=== PATIENT | male | born 1955 | race Caucasian/White ===

== ENCOUNTER → 2018-10-03 09:13 | Outpatient (CLI) | payer OTHER, SELFPAY ==
[2018-10-03 10:14] LABS: Absolute Lymphocyte Count 0.47 X10^3/ul (0.83-4.51); Absolute Neutrophil Count 9.3 X10^3/uL (2.0-7.7); Basophil# 0.06 X10^3/uL; Basophil% 0.6 % (0-1); Eosinophil# 0.26 X10^3/uL; Eosinophils% 2.4 % (0-5); Hemoglobin 11.7 g/dl (13.0-16.5); Lymphocyte # 0.47 X10^3/ul (4.0); Lymphocyte % 4.3 % (19-41); Mean Corp Hgb Conc 33.4 g/gl (32-36); Mean Corpuscular Hgb 30.2 pg (27.0-32.0); Mean Corpuscular Volume 90.4 fL (80-94); Mean Platelet Vol. 8.8 fl (6.2-12.0); Monocyte# 0.73 X10^3/uL; Monocyte% 6.7 % (0-10); Neutrophil # 9.31 X10^3/uL (2.7-7.7); Neutrophil % 85.9 % (47-70); Platelet Count 272 K/mm3 (150-450); RBC Distribution Width CV 12.9 % (11.6-14.6); RBC Distribution Width SD 42.3 fl (35.1-43.9); Red Blood Count 3.87 M/mm3 (4.6-6.2); White Blood Count 10.8 K/mm3 (4.4-11.0)
[2018-10-03 10:23] LABS: Differential Indicated SCAN CRITERIA MET; POSITIVE COUNT NO; POSITIVE DIFFERENTIAL YES; POSITIVE MORPHOLOGY NO
[2018-10-03 10:48] LABS: Anion Gap 3 (5-15); BUN 8 mg/dL (7-18); BUN/Creat Ratio 9.5 RATIO (10-20); Calcium,Total 8.8 mg/dL (8.5-10.1); Chloride 105 mmol/L (98-107); Creatinine, Serum 0.85 mg/dL (0.70-1.30); EST Glomerular Filtration Rate 97 mL/min (>60); Est Glom Filt Rate - Afr Amer 118 mL/min (>60); Glucose 91 mg/dL (74-106); Potassium 4.3 mmol/L (3.5-5.1); Sodium Level 137 mmol/L (136-145)
== END ==
PROVIDERS: Family Provider Family Medicine; PCP Family Medicine
DX: N41.0 Acute prostatitis (principal)
CPT/HCPCS: 36415; 80048; 85025

== ENCOUNTER → 2018-12-24 12:11 | Outpatient (CLI) | payer OTHER, SELFPAY ==
[2018-12-24 14:37] LABS: PSA,Total- Diagnostic 9.79 ng/mL (0.0-4.0)
== END ==
PROVIDERS: Family Provider Family Medicine; PCP Family Medicine; Referring Provider Family Medicine; Visit Provider Family Medicine
DX: R97.20 Elevated prostate specific antigen [PSA] (principal)
CPT/HCPCS: 36415; 84153

== ENCOUNTER → 2019-02-26 15:42 | Outpatient (CLI) | payer OTHER, SELFPAY ==
[2019-02-26 18:06] LABS: Creatinine, Serum 0.89 mg/dL (0.70-1.30); EST Glomerular Filtration Rate 92 mL/min (>60); Est Glom Filt Rate - Afr Amer 111 mL/min (>60); PSA,Total - Annual Screen 7.29 ng/mL (0.00-4.00)
== END ==
PROVIDERS: Family Provider Family Medicine; PCP Family Medicine
DX: N40.1 Benign prostatic hyperplasia with lower urinary tract symptoms (principal); R97.20 Elevated prostate specific antigen [PSA]
CPT/HCPCS: 36415; 82565; 84153; G0103

== ENCOUNTER → 2019-03-30 11:59 | Outpatient (CLI) | payer OTHER, SELFPAY ==
[2019-03-30 14:21] LABS: ALB/GLOB Ratio 1.1 RATIO (0.9-2.4); AST(SGOT) 27 U/L (15-37); Alanine Aminotransfer ALT/SGPT 51 U/L (16-61); Albumin, Serum 3.7 g/dL (3.2-5.0); Alkaline Phosphatase 67 U/L (45-117); Anion Gap 5 (5-15); BUN 29 mg/dL (7-18); BUN/Creat Ratio 27.9 RATIO (10-20); Calcium,Total 8.7 mg/dL (8.5-10.1); Chloride 109 mmol/L (98-107); Cholesterol 162 mg/dL (200); Creatinine, Serum 1.04 mg/dL (0.70-1.30); EST Glomerular Filtration Rate 76 mL/min (>60); Est Glom Filt Rate - Afr Amer 93 mL/min (>60); Globulin 3.3 g/dL (2.2-4.2); Glucose 75 mg/dL (74-106); High Density Lipoprotein 52 mg/dL; Potassium 3.7 mmol/L (3.5-5.1); Sodium Level 142 mmol/L (136-145); Triglycerides 66 mg/dL; Very Low Density Lipoprotein 13 mg/dL (5-40)
== END ==
PROVIDERS: Family Provider Family Medicine; PCP Family Medicine; Referring Provider Family Medicine; Visit Provider Family Medicine
DX: E78.5 Hyperlipidemia, unspecified (principal)
CPT/HCPCS: 36415; 80053; 80061

== ENCOUNTER → 2021-08-03 12:52 | Outpatient (CLI) | payer MEDICARE, OTHER, SELFPAY ==
[2021-08-03 15:31] LABS: PSA,Total- Diagnostic 4.73 ng/mL (0.0-4.0)
== END ==
PROVIDERS: PCP Family Medicine
DX: N40.1 Benign prostatic hyperplasia with lower urinary tract symptoms (principal); R97.20 Elevated prostate specific antigen [PSA]
CPT/HCPCS: 36415; 84153

== ENCOUNTER → 2022-08-07 | Outpatient (CLI) | payer MEDICARE, OTHER, SELFPAY ==
[2022-08-07 15:50] LABS: PSA,Total - Annual Screen 5.48 ng/mL (0.00-4.00)
== END | disposition home or self-care (01) ==
LOC: MTLAB 12:41
PROVIDERS: PCP Family Medicine
DX: R97.20 Elevated prostate specific antigen [PSA] (principal)
CPT/HCPCS: 36415; 84153; G0103

== ENCOUNTER → 2023-08-12 | Outpatient (CLI) | payer MEDICARE, OTHER, SELFPAY ==
[2023-08-12 16:12] LABS: PSA,Total- Diagnostic 3.11 ng/mL (0.0-4.0)
== END | disposition home or self-care (01) ==
LOC: MTLAB 12:36
PROVIDERS: PCP Family Medicine
DX: R97.20 Elevated prostate specific antigen [PSA] (principal)
CPT/HCPCS: 36415; 84153

== ENCOUNTER → 2023-09-10 | Outpatient (CLI) | payer MEDICARE, OTHER, SELFPAY ==
[2023-09-10 10:33] LABS: Absolute Lymphocyte Count 0.62 X10^3/uL (0.83-4.51); Absolute Neutrophil Count 2.9 X10^3/uL (2.0-7.7); Basophil# 0.05 X10^3/uL; Basophil% 1.2 % (0-1); Eosinophil# 0.19 X10^3/uL; Eosinophils% 4.6 % (0-5); Hematocrit 39.8 % (40-54); Hemoglobin 13.5 g/dL (13.0-16.5); Lymphocyte # 0.62 X10^3/ul (0.83-4.51); Mean Corp Hgb Conc 33.9 g/dL (32-36); Mean Corpuscular Hgb 30.8 pg (27.0-32.0); Mean Corpuscular Volume 90.7 fL (80-94); Mean Platelet Vol. 10.3 fl (6.2-12.0); Monocyte% 9.7 % (0-10); NRBC Flagged by Analyzer 0 % (0-5); Neutrophil # 2.86 X10^3/uL (2.7-7.7); Neutrophil % 69.3 % (47-70); Platelet Count 220 K/mm3 (150-450); RBC Distribution Width CV 12.7 % (11.6-14.6); RBC Distribution Width SD 41.7 fl (35.1-43.9); Red Blood Count 4.39 M/mm3 (4.6-6.2); White Blood Count 4.1 K/mm3 (4.4-11.0)
[2023-09-10 10:56] LABS: ALB/GLOB Ratio 1.1 RATIO (0.9-2.4); AST(SGOT) 21 U/L (15-37); Alanine Aminotransfer ALT/SGPT 30 U/L (16-61); Albumin, Serum 3.7 g/dL (3.2-5.0); Alkaline Phosphatase 70 U/L (45-117); Anion Gap 4 (5-15); BUN 21 mg/dL (7-18); BUN/Creat Ratio 27.7 RATIO (10-20); Chloride 107 mmol/L (98-107); Cholesterol 169 mg/dL (200); Creatinine, Serum 0.76 mg/dL (0.70-1.30); EST Glomerular Filtration Rate 109 mL/min (>60); Est Glom Filt Rate - Afr Amer 132 mL/min (>60); Globulin 3.5 g/dL (2.2-4.2); Glucose 106 mg/dL (74-106); High Density Lipoprotein 63 mg/dL; Potassium 3.6 mmol/L (3.5-5.1); Protein, Total 7.2 g/dL (6.4-8.2); Sodium Level 140 mmol/L (136-145); Triglycerides 65 mg/dL; Very Low Density Lipoprotein 13 mg/dL (5-40)
== END | disposition home or self-care (01) ==
LOC: MTLAB 08:46
PROVIDERS: PCP Family Medicine
DX: I10 Essential (primary) hypertension (principal); E78.5 Hyperlipidemia, unspecified
CPT/HCPCS: 36415; 80053; 80061; 85025

== ENCOUNTER 2023-11-03 08:00 | Emergency (ER) | payer MEDICARE, OTHER, SELFPAY ==
[2023-11-03 08:01] VITALS: BP 153/88; PULSE 62; RESP 16; TEMP 36.6; O2SAT 93; BMI 26.4
[2023-11-03 08:30] VITALS: TEMP 37.6
--- NOTE | 2023-11-03 08:30 | RAD_ITS ---
EXAM: XR CHEST, 2 VIEWS CLINICAL INDICATION: cough, fever, rales LLL with egophony TECHNIQUE: Frontal and lateral views of the chest. COMPARISON: No relevant prior studies available. FINDINGS: LUNGS AND PLEURAL SPACES: Normal. No consolidation or edema. No pneumothorax. No effusion. HEART: Normal heart size. MEDIASTINUM: No mediastinal or hilar mass. BONES/JOINTS: No acute abnormality. RAD/Chest PA and Lateral IMPRESSION: No acute cardiopulmonary disease. Electronically Signed: Humberto Bowers MD at 9:12 EDT ,
--- NOTE | 2023-11-03 08:31 | EDS_ITS ---
HPI History of Present Illness Chief Complaint: Fever Detail of Chief Complaint: Temperature 101.5 with mild congestion, raspy voice and nonproductive cough Informant: patient and spouse/S.O. Onset/Context/Timing Onset: Yesterday (Evening) Context: Sudden Onset Timing: Intermittent Quality: Yesterday nasal congestion, dyspnea, during the day. Cough last evening, f Location: Respiratory Current Severity: Mild Maximum Severity: Moderate Worsened by: Dyspnea with activity Relieved by: Nothing Associated Symptoms Associated Symptoms: Per HPI narrative Narrative Narrative: Patient is a 68-year-old male with history of hypertension. He had mild congestion yesterday. He also had shortness of breath while showing their horses. He reported fatigue. Last evening he had cough which was nonproductive. This morning at approximately 0730 took his temperature and was 101.4. He has had some chills. He does complain of headache. He does have hi story of migraines. He denies photophobia. He denies auditory or ear symptoms. He does endorse slight congestion. Denies sore throat. Does endorse change in voice from normal. He also reports intermittent transient chest pain described as dull that lasts 1 minute in duration. There is no associated symptoms nor is or any radiation. There is no exacerbating, precipitating or alleviating fac tors with regards to the chest discomfort. He denies history of VTE and has no risk factors for VTE. He denies leg pain, swelling discoloration. He does complain of myalgias and arthralgias. Upon clarification he complains of hand pain due to significant osteoarthritis. Prior similar symptoms: No Recent Illness/Hospitalization: No PFSH PFS Medical History (Updated 11/03/23 @ 09:[address] Kevin Marquez MD) Osteoarthritis Hypertension Home Medications ?Medication ?Instructions ?Recorded ?Last Taken ?Type levofloxacin 500 mg tablet 500 mg PO DAILY #6 tabs 11/03/23 Unknown Rx Allergy/AdvReac Type Severity Reaction Status Date / Time Penicillins (PCN) Allergy Intermediate NEEDS Verified 11/03/23 08:05 FOLLOW-UP diclofenac AdvReac Intermediate Nausea Verified 11/03/23 08:05 sertraline AdvReac Intermediate Nausea Verified 11/03/23 08:05 Social History (Updated 11/03/23 @ 08:[address] Kevin Marquez MD) household members: spouse Smoking Status: Never smoker substance use type: does not use ROS ROS ED Constitutional Constitutional ED: Reports chills, fever(s) and sweats; Denies subjective or weight loss Eyes Eyes: Denies blurry vision or change in vision ENT ENT ED: Denies ear pain, rhinorrhea or sore throat Cardiovascular Cardiovascular: Reports chest pain and other Details: Further detailed HPI narrative ; Denies orthopnea, palpitations, paroxysmal nocturnal dyspnea or racing heartbeat Respiratory/Chest Respiratory/Chest: Reports cough, dyspnea and dyspnea on exertion; Denies orthopnea, paroxysmal nocturnal dyspnea or sputum Gastrointestinal Gastrointestinal: Reports nausea and other Details: Patient had dry heaves x 2 this morning. ; Denies abdominal pain, constipation, diarrhea, melena or vomiting Genitourinary Genitourinary ED: Reports other Details: History of benign prostatic hypertrophy. ; Denies dysuria, hematuria or urinary frequency Musculoskeletal Musculoskeletal: Reports arthralgias and myalgias; Denies back pain Integumentary Denies rash Neurologic Neurologic: Reports headache(s) and weakness; Denies paresthesias Endocrine Endocrinology: Denies cold intolerance or heat intolerance Hematologic/Lymphatic Hematologic/Lymphatic: Reports systems reviewed and no addt'l complaints, except as documented EXAM Physical Exam Const Vital Signs: 11/03/23 08:01 11/03/23 08:30 Temperature 97.8 F Temperature Source Temporal Pulse Rate 62 Respiratory Rate 16 Respiratory Effort Normal Non-Labored Respiratory Pattern Normal Blood Pressure 153/88 H Blood Pressure Mean 109 Pulse Ox 93 Oxygen Delivery Method Room Air Positive well nourished and well developed General Appearance ED: well developed, NAD and pallor; Negative for cyanotic or diaphoretic HEENT Reports dry mucous membranes HEENT Narrative: Head is atraumatic normocephalic. Ears normal. Posterior pharynx is normal. Mouth ED: Yes dry mucous membranes Mouth: dry mucous membranes Eyes PERRL and EOMs intact bilaterally General Eye ED: Negative for pale conjunctiva or scleral icterus Neck no lymphadenopathy, supple and no JVD Chest Wall inspection of chest normal and palpation of chest normal Resp normal respiratory effort and No clear to auscultation bilaterally Auscultation: rales right base and left lower (There is egophony left lower lobe.); Negative for wheezes or diminished lung sounds Cardio regular rate, regular rhythm, S1 normal heart sound, S2 normal heart sound and no murmurs GI normal to inspection, nondistended, normoactive bowel sounds, non-tender, non- distended and no masses; Negative for hepatosplenomegaly Extremity normal to inspection Neuro oriented x3 Sensorium / Orientation: alert Psych mental status grossly normal Skin no rashes or lesions noted, no wounds and skin turgor normal General Skin Exam: elasticity normal and pallor; Negative for jaundice MDM MDM MDM Narrative Medical decision making narrative: Patient feels much warmer than documented temperature that was done by TA method. Will have nurse repeat. Clinically patient has a left lower lobe pneumonia. Will obtain appropriate blood work for risk stratification to determine if patient be treated as outpatient versus inpatient. Lab Data Attestation: I reviewed the patient's lab results. Lab results narrative: CBC reveals mild anemia. Patient does have history of anemia reviewing prior labs. There is no bandemia. Competence of metabolic panel reveals slight elevation of chloride. BUN/creatinine ratio is slight elevated 25-1. Estimated GFR is 98. Hepatic enzymes are normal. Lactate is normal. Labs: Laboratory Results - last 24 hr 11/03/23 08:35 WBC 5.4 RBC 3.87 L Hgb 11.9 L Hct 35.9 L MCV 92.8 MCH 30.7 MCHC 33.1 RDW Std Deviation 43.8 RDW Coeff of Bladimir 12.9 Plt Count 171 MPV 10.0 Immature Gran % (Auto) 0.400 Neut % (Auto) 81.2 H Lymph % (Auto) 4.7 L [place] % (Auto) 12.5 H Eos % (Auto) 0.6 Baso % (Auto) 0.6 Absolute Neuts (auto) 4.4 Absolute Lymphs (auto) 0.25 L Nucleated RBC % 0 Sodium 142 Potassium 3.5 Chloride 110 H Carbon Dioxide 28.0 Anion Gap 4 L BUN 21 H Creatinine 0.83 Estim Creat Clear Calc 90.72 Est GFR (MDRD) Af Amer 118 Est GFR (MDRD) Non-Af 98 BUN/Creatinine Ratio 25.3 H Glucose 118 H Lactic Acid 0.9 Calcium 8.9 Total Bilirubin 0.60 AST 34 ALT 32 Alkaline Phosphatase 61 Total Protein 6.9 Albumin 3.7 Globulin 3.2 Albumin/Globulin Ratio 1.2 Radiography Chest X-Ray - ED: 2 View and Read by ED Physician (Independent reviewed interpreted by me as negative for any acute pathology. In light of the fact the patient had fever, has egophony clinically has pneumonia. Infiltrate may not show up for 4 to 6 days.) Diagnostic Testing: Clinical Impression(s) from Imaging Studies Chest X-Ray 11/03/23 08:30 IMPRESSION: No acute cardiopulmonary disease. Electronically Signed: Humberto Bowers MD at 9:12 EDT , Treatment and Re-Evaluation :: Based on port score of 68 with a class II risk stratification and 0.6 to 0.9% mortality) irrigated candidate for outpatient therapy. Patient's curb 65 score is true because of age and BUN greater than 19. This is moderate risk with a 6.8% 30-day mortality rate. Will endocrine therapy or outpatient with close follow-up. My opinion patient is safe for outpatient therapy. Discharge Plan Triage Chief Complaint: Fever ED Provider: Kevin Marquez Dx/Rx/DC Orders Clinical Impression: Community acquired pneumonia, Osteoarthritis, Elevated blood pressure reading with diagnosis of hypertension, Fever Instructions: ED Pneumonia (Adult) Prescriptions: New levofloxacin 500 mg tablet 500 mg PO DAILY Qty: 6 0RF Primary Care Provider: Yossi Madrid Referrals: Yossi Madrid MD [Primary Care Provider] - 3-5 Days Print Language: Maori Disposition Disposition: Home, Self Care
[2023-11-03 08:48] LABS: Absolute Lymphocyte Count 0.25 X10^3/uL (0.83-4.51); Absolute Neutrophil Count 4.4 X10^3/uL (2.0-7.7); Basophil# 0.03 X10^3/uL; Basophil% 0.6 % (0-1); Eosinophil# 0.03 X10^3/uL; Eosinophils% 0.6 % (0-5); Hematocrit 35.9 % (40-54); Hemoglobin 11.9 g/dL (13.0-16.5); Lymphocyte # 0.25 X10^3/ul (0.83-4.51); Lymphocyte % 4.7 % (19-41); Mean Corp Hgb Conc 33.1 g/dL (32-36); Mean Corpuscular Hgb 30.7 pg (27.0-32.0); Mean Corpuscular Volume 92.8 fL (80-94); Monocyte# 0.67 X10^3/uL; Monocyte% 12.5 % (0-10); NRBC Flagged by Analyzer 0 % (0-5); Neutrophil # 4.35 X10^3/uL (2.7-7.7); Neutrophil % 81.2 % (47-70); POSITIVE DIFFERENTIAL YES; Platelet Count 171 K/mm3 (150-450); RBC Distribution Width CV 12.9 % (11.6-14.6); RBC Distribution Width SD 43.8 fl (35.1-43.9); Red Blood Count 3.87 M/mm3 (4.6-6.2); White Blood Count 5.4 K/mm3 (4.4-11.0)
[2023-11-03 09:05] LABS: ALB/GLOB Ratio 1.2 RATIO (0.9-2.4); AST(SGOT) 34 U/L (15-37); Alanine Aminotransfer ALT/SGPT 32 U/L (16-61); Albumin, Serum 3.7 g/dL (3.2-5.0); Alkaline Phosphatase 61 U/L (45-117); Anion Gap 4 (5-15); BUN 21 mg/dL (7-18); BUN/Creat Ratio 25.3 RATIO (10-20); Calcium,Total 8.9 mg/dL (8.5-10.1); Chloride 110 mmol/L (98-107); Creatinine, Serum 0.83 mg/dL (0.70-1.30); EST Glomerular Filtration Rate 98 mL/min (>60); Est Glom Filt Rate - Afr Amer 118 mL/min (>60); Estimated Creatinine Clearance 90.72 ml/min; Globulin 3.2 g/dL (2.2-4.2); Glucose 118 mg/dL (74-106); Potassium 3.5 mmol/L (3.5-5.1); Protein, Total 6.9 g/dL (6.4-8.2); Sodium Level 142 mmol/L (136-145)
[2023-11-03 09:11] LABS: Lactic Acid 0.9 mmol/L (0.4-1.9)
--- NOTE | 2023-11-03 09:43 | EDS_ITS ---
HPI History of Present Illness Chief Complaint: Fever [facility] Medical History (Updated 11/03/23 @ 09:[address] Kevin Marquez MD) Osteoarthritis Hypertension Home Medications ?Medication ?Instructions ?Recorded ?Last Taken ?Type levofloxacin 500 mg tablet 500 mg PO DAILY #6 tabs 11/03/23 Unknown Rx Allergy/AdvReac Type Severity Reaction Status Date / Time Penicillins (PCN) Allergy Intermediate NEEDS Verified 11/03/23 08:05 FOLLOW-UP diclofenac AdvReac Intermediate Nausea Verified 11/03/23 08:05 sertraline AdvReac Intermediate Nausea Verified 11/03/23 08:05 Social History (Updated 11/03/23 @ 08:[address] Kevin Marquez MD) household members: spouse Smoking Status: Never smoker substance use type: does not use EXAM Physical Exam Const Vital Signs: 11/03/23 08:01 11/03/23 08:30 11/03/23 08:30 Temperature 97.8 F 99.7 F H Temperature Source Temporal Oral Pulse Rate 62 Respiratory Rate 16 Respiratory Effort Normal Non-Labored Respiratory Pattern Normal Blood Pressure 153/88 H Blood Pressure Mean 109 Pulse Ox 93 Oxygen Delivery Method Room Air MDM MDM Lab Data Labs: Laboratory Results - last 24 hr 11/03/23 08:35 WBC 5.4 RBC 3.87 L Hgb 11.9 L Hct 35.9 L MCV 92.8 MCH 30.7 MCHC 33.1 RDW Std Deviation 43.8 RDW Coeff of Bladimir 12.9 Plt Count 171 MPV 10.0 Immature Gran % (Auto) 0.400 Neut % (Auto) 81.2 H Lymph % (Auto) 4.7 L [place] % (Auto) 12.5 H Eos % (Auto) 0.6 Baso % (Auto) 0.6 Absolute Neuts (auto) 4.4 Absolute Lymphs (auto) 0.25 L Nucleated RBC % 0 Sodium 142 Potassium 3.5 Chloride 110 H Carbon Dioxide 28.0 Anion Gap 4 L BUN 21 H Creatinine 0.83 Estim Creat Clear Calc 90.72 Est GFR (MDRD) Af Amer 118 Est GFR (MDRD) Non-Af 98 BUN/Creatinine Ratio 25.3 H Glucose 118 H Lactic Acid 0.9 Calcium 8.9 Total Bilirubin 0.60 AST 34 ALT 32 Alkaline Phosphatase 61 Total Protein 6.9 Albumin 3.7 Globulin 3.2 Albumin/Globulin Ratio 1.2 Radiography Diagnostic Testing: Clinical Impression(s) from Imaging Studies Chest X-Ray 11/03/23 08:30 IMPRESSION: No acute cardiopulmonary disease. Electronically Signed: Humberto Bowers MD at 9:12 EDT , Discharge Plan Triage Chief Complaint: Fever ED Provider: Kevin Marquez Dx/Rx/DC Orders Clinical Impression: Community acquired pneumonia, Osteoarthritis, Elevated blood pressure reading with diagnosis of hypertension, Fever Instructions: ED Pneumonia (Adult) Prescriptions: New levofloxacin 500 mg tablet 500 mg PO DAILY Qty: 6 0RF Primary Care Provider: Yossi Madrid Referrals: Yossi Madrid MD [Primary Care Provider] - 3-5 Days Print Language: Arabic Disposition Disposition: Home, Self Care
[2023-11-03] MEDS: levoFLOXacin 750 MG Tablet PO (09:47)
[2023-11-03 09:50] VITALS: BP 156/94; PULSE 72; RESP 18; TEMP 37.6; O2SAT 94
== END 2023-11-03 09:51 | disposition home or self-care (01) ==
PROVIDERS: Emergency Provider Emergency Medicine; PCP Family Medicine; Visit Provider Emergency Medicine
DX: J18.9 Pneumonia, unspecified organism (principal); I10 Essential (primary) hypertension; R11.2 Nausea with vomiting, unspecified; M79.10 Myalgia, unspecified site; M19.90 Unspecified osteoarthritis, unspecified site
CPT/HCPCS: 71046; 80053; 83605; 85025; 99284; A4216

== ENCOUNTER → 2024-03-23 | Outpatient (CLI) | payer MEDICARE, OTHER, SELFPAY | END | disposition home or self-care (01) | LOC: RAD 13:35 | PROVIDERS: PCP Family Medicine; Referring Provider Anesthesiology Pain Medicine; Visit Provider Anesthesiology Pain Medicine | DX: M96.1 Postlaminectomy syndrome, not elsewhere classified (principal) | CPT/HCPCS: 72100 ==

== ENCOUNTER → 2024-08-17 | Outpatient (CLI) | payer MEDICARE, OTHER, SELFPAY ==
[2024-08-17 19:45] LABS: PSA,Total - Annual Screen 4.38 ng/mL (0.02-4.00)
== END | disposition home or self-care (01) ==
LOC: MTLAB 13:56
PROVIDERS: PCP Family Medicine
DX: Z12.5 Encounter for screening for malignant neoplasm of prostate (principal); R97.20 Elevated prostate specific antigen [PSA]; Z98.890 Other specified postprocedural states
CPT/HCPCS: 36415; 84153; G0103

== ENCOUNTER → 2024-10-21 | Outpatient (CLI) | payer MEDICARE, OTHER, SELFPAY ==
--- OUTSIDE RECORDS SUMMARY | 2024-10-21 21:56 | XMS RPT_ITS | CCD ---
Author Organization [facility] CliniSypr Care Team Providers Care Coiler Operator Name Role Phone Essie Madrid Attending Unavailable Essie Madrid Referring Unavailable Essie Madrid Primary Care Unavailable Essie Madrid Primary Care Provider Essie Madrid MD Primary Care Provid er Essie Madrid MD Primary Care Provider [phone] Unavailable Primary Care Provider Unavailabl e Essie Madrid MD Primary Care Provider Essie Madrid MD Primary Care Provid er HUGO GABRIELLE Referring Unavailable VETOVITZ, GISELL Referring Unavailable FINESSIE GASPAR Primary Care Unavai labjennifer VETOVITZ, GISELL Referring Unavailable FINNERESSIE HOPKINS Primary Care Unavai lable VETOVITZ, GISELL Referring Unavailable FINNERESSIE HOPKINS Primary Care Unavai lable VETOVITZ, GISELL Referring Unavailable FINNERESSIE HOPKINS Primary Care Unavai lable PROVIDER, UNKNOWN Admitting Unavailable PROVIDER, UNKNOWN Attending Unavailable PROVIDER, UNKNOWN Referring Unavailable ESSIE MADRID Primary Care Unavai lable FINNERESSIE HOPKINS Primary Care Unavai JOHN Mcnamara Referring Unavailable REGOTTI, GABRIELLE Referring Unavailable REGOTTI, GABRIELLE Attending Unavailable ESSIE MADRID Primary Care UnavaJOHN Camacho Referring Unavailable VETOVITZ, GISELL Attending Unavailable ELVIS MONZON Attending Unavailable ESSIE MADRID Referring Unavarik labESSIE Uriostegui Referring UnavaELVIS Rodriguez Attending Unavailable ELVIS MONZON Attending Unavailable FINNERAN, ESSIE FERGUSON Referring Unavai lable FERNANDO, ELVIS Attending Unavailable FINNERAN, ESSIE FERGUSON Referring Unavai lable FINNERAN, ESSIE FERGUSON Referring Unavai lable FINNERAN, ESSIE MARTY Referring Unavai lable FERNANDO, ELVIS Attending Unavailable FINNERAN, ESSIE FERGUSON Referring Unavai lable FINNERAN, ESSIE MARTY Referring Unavai lable FERNANDO, ELVIS Attending Unavailable FERNANDO, ELVIS Attending Unavailable FINNERAN, ESSIE MARTY Referring Unavai lable FERNANDO, ELVIS Attending Unavailable FINNERAN, ESSIE FERGUSON Referring Unavai lable FERNANDO, ELVIS Attending Unavailable FINNERAN, ESSIE FERGUSON Referring Unavarik FRY, JOHN Attending Unavailable GABRIELLE BENTON Referring Unavailable ESSIE MADRID Primary Care Brenden FRY, JOHN Attending Unavailable CHRISTIANA, ESSIE FERGUSON Primary Care GISELL Escalante Attending Unavailable Essie Madrid MD Primary Care [facility] Unavailable Primary Care Provider Unavailabl e Essie Madrid Primary Care Unavailable Marquez, Kevin Attending Unavailable MARYELLEN VILLELA Referring Unavailable MARYELLEN VILLELA Attending Unavailable Essie Madrid Primary Care Unavailable Essie Madrid Primary Care Unavailable MARYELLEN VILLELA Attending Unavailable Essie Madrid Primary Care Unavailable Bacilio Ham Referring Unavailable Bacilio Ham Attending Unavailable ESSIE MADRID Primary Care Unavailable SHYANN GUPTA Attending Unavailable ANGIE YBARRA Referring Unavailable ANGIE YBARRA Attending Unavailable ESSIE MADRID Primary Care Unavailable Allergies Allergy Classification Reported Allergen(s) Allergy Type Date of Onset Reaction(s) Facility (16 sources) Penicillin G; Translations: [PENICILLIN G] Drug Allergy 1 Other (See Comments), Unknown [place], [place] (16 sources) Sertraline; Translations: [SERTRALINE] Drug Allergy 7 Other (See Comments), Unknown [place], [place] (8 sources) celecoxib; Translations: [CELECOXIB] Drug Allergy 4 GI Upset [facility] (11 sources) Diclofenac; Translations: [DICLOFENAC] Drug Allergy [address] [facility] (3 sources) celecoxib Drug Allergy 4 [facility] (1 source) Diclofenac Drug Allergy 4 [facility] (1 source) Penicillins Drug allergy (disorder) 4 [facility] (1 source) Sertraline Drug Allergy 4 [facility] Medications Current Medications Medication Drug Class(es) Dates Sig (Normalized) Sig (Original) acetaminophen 500 mg oral tablet (2 sources) acetaminophen (TYLENOL) 500 MG tablet 2 tab(s) 0 Active amLODIPine 5 mg oral tablet (13 sources) Dihydropyridine Calcium Channel Santa Start: 03-19-2022 take 1 tablet by mouth once daily amLODIPine (Norvasc) 5 MG tablet TAKE 1 TABLET BY MOUTH ONCE DAILY AT NIGHT FOR 30 DAYS 03/19/2022 Active Comment on above: Take 5 mg by mouth o nce daily. atenolol 25 mg oral tablet (15 sources) beta-Adrenergic Santa Start: 11-25-2017 atenolol (Tenormin) 25 MG tablet 08/09/2022 Active Comment on above: Take 25 mg by mouth once daily. cephalexin 250 mg oral capsule (1 source) Cephalosporin Antibacterial Start: 07-22-2023 End: 07-27-2023 take 1 capsule by mouth four times daily cephALEXin (KEFLEX) 250 mg capsule Indications: Postoperative stitch abscess Take 1 capsule by mouth four times daily for 5 days. 20 capsule 0 07/22/2023 07/27/2023 Active Comment on above: Take 1 capsule by [facility] daily for 5 days. citalopram 10 mg oral tablet (15 sources) Serotonin Reuptake Inhibitor Start: 11-25-2017 citalopram (CeleXA) 10 MG tablet 08/09/2022 Active Comment on above: Take 10 mg by mouth once daily. diclofenac sodium 0.01 mg/mg topical gel (13 sources) Nonsteroidal Anti-inflammatory Drug Start: 03-19-2022 Diclofenac Sodium (Voltaren) 1 % gel APPLY 2 GRAMS THREE TIMES DAILY DIRECTED 03/19/2022 Active Start: 03-19-2022 diclofenac (VO LTAREN) 1 % topical gel Apply 2 g to affected area as needed. 03/19/2022 Active Comment on above: Apply 2 g to affecte d area as needed. finasteride 5 mg oral tablet (13 sources) 5-alpha Reductase Inhibitor Start: 02-09-2021 finasteride (Proscar) 5 MG tablet 08/09/2022 Active hydroCHLOROthiazide 12.5 mg / valsartan 320 mg oral tablet (15 sources) Thiazide Diuretic, Angiotensin 2 Receptor Santa Start: 08-09-2022 valsartan-hydroCHLORO thiazide (Diovan-HCT) 320-12.5 MG tablet 08/09/2022 Active Start: 01-02-2007 take 1 tablet by seun th once daily Valsartan-hydroCHLOROthiazide 320-12.5 m g per tablet Take 1 tablet by mouth once daily. 01/02/2007 Active Start: 01-02-2007 valsartan-hydr ochlorothiazide (DIOVAN HCT) 320-12.5 MG per tablet 1 tab(s) 0 01/02/2007 Active Comment on above: Take 1 tablet by seun th once daily. meloxicam 15 mg oral tablet (13 sources) Nonsteroidal Anti-inflammatory Drug Start: 08-02-2021 meloxicam (Mobic) 15 MG tablet 08/02/2021 Active Comment on above: Take 15 mg by mouth as needed. mometasone furoate 0.001 mg/mg topical ointment (15 sources) Corticosteroid Start: 03-21-2022 mometasone (Elocon) 0.1 % ointment APPLY OINTMENT SPARINGLY TO RASH ONCE DAILY DIRECTED 03/21/2022 Active Start: 11-14-2010 mometasone (EL NICHOLE) 0.1 % cream Apply 1 g to affected area as needed. 11/14/2010 Active Start: 11-14-2010 mometasone (EL NICHOLE) 0.1 % cream 1 devyn 0 11/14/2010 Active Comment on above: Apply 1 g to affecte d area as needed. Multiple Vitamins-Minerals (MULTIVITAMIN ADULT PO) (2 sources) Multiple Vitamins-Minerals (MULTIVITAMIN ADULT PO) 1 tab(s) 0 Active omeprazole 20 mg delayed release oral capsule (13 sources) Proton Pump Inhibitor Start: 09-06-19 take 1 capsule by mouth once daily omeprazole (PriLOSEC) [address] capsule Take 20 mg by mouth daily. 08/05/2022 Active Comment on above: Take 20 mg by mouth once daily. pravastatin sodium 20 mg oral tablet (15 sources) HMG-CoA Reductase Inhibitor Start: 11-26-19 pravastatin (Pravachol) 20 MG tablet 08/09/2022 Active Comment on above: Take 20 mg by mouth once daily. rizatriptan 10 mg disintegrating oral tablet (15 sources) Serotonin-1b and Serotonin-1d Receptor Agonist Start: 03-19-20 rizatriptan UNDERGROUND MINING SECTION FOREMAN (Maxalt-UNDERGROUND MINING SECTION FOREMAN) 10 MG disintegrating tablet 03/19/2022 Active Start: 02-19-2011 rizatriptan (M AXALT) 10 mg tablet Take 10 mg by mouth as needed. 02/19/2011 Active Comment on above: Take 10 mg by mouth as needed. terazosin 10 mg oral capsule (15 sources) alpha-Adrenergic Santa Start: 10-02-2018 terazosin (Hytrin) 10 MG capsule 08/09/2022 Active Comment on above: Take 10 mg by mouth once daily. Completed/Discontinued Medications Medication Drug Class(es) Dates Sig (Normalized) Sig (Original) ascorbic acid 100 mg/ml oral solution (8 sources) Vitamin C End: 08-24-2024 Ascorbic Acid 500 MG/5ML liquid 1 tab(s) 08/24/2024 Discontinued (Therapy completed) gadobenate dimeglumine (MULTIHANCE) injection 16 mL (1 source) Start: 03-12-2019 End: 03-12-2019 gadobenate dimeglumine (MULTIHANCE) injection 16 mL Problems Active Problems Problem Classification Problem Date Documented Date Episodic/Chronic Anxiety disorders (7 sources) Mixed anxiety and depressive disorder; Translations: [Anxiety disorder, unspecified] Onset: 05-01-2023 05-01-2023 Chronic Complications of surgical procedures or medical care (1 source) Stitch abscess; Translations: [Infection following a procedure, superficial incisional surgical site, initial encounter] 07-22-2023 Episodic Disorders of lipid metabolism (7 sources) Mixed hyperlipidemia; Translations: [Mixed hyperlipidemia] Onset: 05-01-2023 05-01-2023 Chronic Esophageal disorders (7 sources) Gastroesophageal reflux disease; Translations: [Gastro-esophageal reflux disease without esophagitis] Onset: 05-01-2023 05-01-2023 Chronic Essential hypertension (8 sources) Benign essential hypertension; Translations: [Essential (primary) hypertension] Onset: 05-01-2023 05-01-2023 Chronic Headache; including migraine (7 sources) Migraine; Translations: [Migraine, unspecified, not intractable, without status migrainosus] Onset: 05-01-2023 05-01-2023 Chronic Hyperplasia of prostate (16 sources) Benign prostatic hypertrophy with outflow obstruction; Translations: [Benign prostatic hyperplasia with lower urinary tract symptoms] Onset: 02-09-2021 02-11-2022 Chronic Mood disorders (1 source) Mood disorders; Translations: [Anxiety and depression] Onset: 05-01-2023 Osteoarthritis (10 sources) Bilateral primary osteoarthritis of first carpometacarpal joints; Translations: [Arthropathy of joint of hand] Onset: 05-29-2018 02-28-2023 Chronic Other connective tissue disease (1 source) Pain in right finger(s); Translations: [Thumb pain, right] Onset: 05-15-2023 Episodic Other diseases of kidney and ureters (1 source) Other obstructive and reflux uropathy; Translations: [BPH with urinary obstruction] Onset: 05-01-2023 Episodic Other nervous system disorders (1 source) Skin sensation disturbance; Translations: [Unspecified disturbances of skin sensation] 02-28-2023 Episodic Other non-traumatic joint disorders (9 sources) Shoulder pain; Translations: [Pain in right shoulder] Onset: 09-28-2022 Episodic Other screening for suspected conditions (not mental disorders or infectious disease) (16 sources) Raised prostate specific antigen; Translations: [Elevated prostate specific antigen [PSA]] Onset: 02-05-2018 02-05-2018 Episodic Residual codes; unclassified (6 sources) Obstructive sleep apnea syndrome; Translations: [Obstructive sleep apnea (adult) (pediatric)] Onset: 05-01-2023 05-01-2023 Chronic Residual codes; unclassified (1 source) Obstructive sleep apnea (adult) (pediatric); Translations: [LOIDA (obstructive sleep apnea)] Onset: 05-01-2023 Chronic Residual codes; unclassified (2 sources) Pain; Translations: [Pain, unspecified] 02-15-2023 Episodic Residual codes; unclassified (1 source) History of prostate needle biopsy with negative result; Translations: [Other specified postprocedural states] 08-20-2023 Episodic Spondylosis; intervertebral disc disorders; other back problems (11 sources) Degeneration of cervical intervertebral disc; Translations: [Other cervical disc degeneration, unspecified cervical region] Onset: 05-01-2023 Chronic Unclassified (1 source) Occupational Therapy Onset: 06-18-2023 Past or Other Problems Problem Classification Problem Date Documented Da te Episodic/Chronic Deficiency and other anemia (2 sources) Anemia; Translations: [Anemia, unspecified] Onset: 11-08-2023 11-08-2023 Episodic Deficiency and other anemia (1 source) Anemia, unspecified; Translations: [Anemia, unspecified] Onset: 11-08-2023 Episodic Fever of unknown origin (1 source) Fever, unspecified; Translations: [Fever, unspecified] Onset: 11-06-2023 Episodic Genitourinary symptoms and ill-defined conditions (6 sources) Nocturia; Translations: [Nocturia] Onset: 08-10-2021 02-11-2022 Episodic Inflammatory conditions of male genital organs (8 sources) Acute prostatitis; Translations: [Acute prostatitis] Onset: 10-02-2018 10-02-2018 Episodic Other male genital disorders (7 sources) Disorder of prostate; Translations: [Disorder of prostate, unspecified] Onset: 04-08-2019 04-08-2019 Episodic Other nervous system disorders (1 source) Unspecified disturbances of skin sensation; Translations: [Disturbance of skin sensation] Onset: 03-08-2023 Episodic Other non-traumatic joint disorders (18 sources) Pain in right shoulder; Translations: [Pain in joint, shoulder region] Onset: 09-28-2022 Resolved: 05-01-2023 Episodic Residual codes; unclassified (1 source) Pain, unspecified; Translations: [Pain] Onset: 02-28-2023 Episodic Results Test Name Value Interpretation Reference Range Facility Office Visiton 08-24-2024 Follow-up visit [id number] Robin Delarosa 1955 M Date Provider Department Center 08/24/2024 [id number] URO None Family History Problem Relation Age of Onset Diabetes Brother Arthritis Father Heart failure Mother Heart disease Mother Family Status - Relation Status Age at Brother Alive Father Mother Level of Service:59439 LA OFFICE/OUTPATIENT ESTABLISHED LOW MDM 20 MIN Reason for Visit and Comments: 1 Year Follow-up [670] Normal [facility] Progress Noteon 08-24-2024 Progress Note PVR 0 Normal [facility] Progress Note Sonido EspositoAngie Shay nelson APRN [employer] 08/24/2024 Urology Office Visit [facility] [address], [address] [facility] [address] PATIENT NAME: Robin Delarosa DATE OF : 1955 REFERRING PROVIDER: No ref. provider found PCP: Essie Madrid MD TODAY'S DATE: 08/24/2024 Visit type: Established patient Az is a pleasant 69 y.o. unaccompanied male who presents today for the following: annual follow up for BPH and Elevated PSA Chief Complaint Patient presents with 1 Year Follow-up Assessment and Plan: Diagnosis Plan 1. Benign prostatic hyperplasia without lower urinary tract symptoms 2. Elevated PSA PSA, total and free PSA, total and free 3. Rising PSA level PSA, total and free PSA, total and free Problem List BPH Plan is to continue current treatment as symptoms are well controlled on finasteride, terazosin Dosage/schedule verified Patient is compliant and is tolerating without adverse effects. States his PCP refills his medications 08-24-24: PVR zero ml PSA Recheck PSA in 1 month If PSA >4 will order MRI, if <4 will recheck in 6 months. All patient questions answered. Patient voiced understanding. Patient agreed with treatment plan. Follow Up: Follow up in about 2 months (around 10/24/2024). Sonido Adams SRINIVASAN Gupta [facility] Urology HPI: Patient presents to the office regarding BPH and Elevated PSA. Records have been reviewed. 08/20/2023: Carrie: BPH - continue terazosin and finasteride. PVR 0mL. History of 2 negative prostate biopsies. Family history of prostate cancer. 04/13/2019: Marlen: Uronav biopsy. Benign. 86.2 mL prostate Problem List BPH Patient currently taking finasteride and terazosin. States he feels his symptoms are well controlled. PVR today is zero. Voids q 3 hrs. Nocturia x 1 Urgency: denies UUI: denies GILLES: denies Dysuria: denies Feeling of incomplete emptying: denies Hematuria: denies Stream is good Urinary hesitancy: denies Elevated PSA 08-19-24: PSA 8.76 (finasteride 4.38) Discussed with patient should recheck PSA in 1 month. If PSA >4 will order MRI, if <4 will recheck in 6 months. Discussed when taking finasteride the PSA will be lower than the true value PSA trend: (after corrections) 08-19-24: PSA 8.76 (finasteride 4.38) 08/12/2023: 6.22 (3.11) 08/07/2022: 10.96 (5.48) 11/17/2021: 9.46 Review of Systems: All pertinent positives and negatives per HPI as stated above. Review of Systems Constitutional: Negative for chills and fever. Genitourinary: Negative for difficulty urinating, flank pain, frequency, hematuria and urgency. Past Medical History: Diagnosis Date Arthritis Benign prostatic hyperplasia Elevated PSA Hyperlipemia Hypertension Urinary tract infection Past Surgical History: Procedure Laterality Date BACK SURGERY lumbar OTHER SURGICAL HISTORY thumb surgery (left) Allergies Allergen Reactions Celecoxib Other Reaction(s): GI Upset Diclofenac Other Reaction(s): GI Upset Penicillin G Other reaction(s): Other (See Comments) Other Reaction(s): Unknown Sertraline Other reaction(s): Other (See Comments) Other Reaction(s): Unknown Physical Exam: BP 139/79 Pulse 51 Ht 5' 11 (1.803 m) Wt 180 lb (81.6 kg) BMI 25.10 kg/m? Physical Exam Vitals reviewed. Constitutional: Appearance: Normal appearance. He is normal weight. Pulmonary: Effort: Pulmonary effort is normal. No respiratory distress. Neurological: Mental Status: He is alert and oriented to person, place, and time. Psychiatric: Mood and Affect: Mood normal. Behavior: Behavior normal. Thought Content: Thought content normal. Judgment: Judgment normal. Pertinent Labs: CBC: Lab Results Component Value Date WBC 3.9 11/08/2023 HGB 13.2 11/08/2023 HCT 37.4 (L) 11/08/2023 MCV 89.3 11/08/2023 PLT 231 11/08/2023 PSA: 08-19-24: PSA 8.76 (finasteride 4.38) 08/12/2023: 6.22 (3.11) 08/07/2022: 10.96 (5.48) 11/17/2021: 9.46 Imaging: None at this time Procedure: 08-24-24: PVR zero ml Please note that portions of this chart were dictated using Fleep electronic voice recognition software. It is possible that typos and/or omissions and/or substitutions of words and/or phrases may exist, which may alter the intended meaning of the dictating provider. Normal [facility] PSA,Total - Annual Screenon 08-17-2024 PSA,TOT SCREEN 4.38 ng/mL High 0.02-4.00 [facility] Comment on above: Result Comment: This test was performed using the Tatyana Info[employer]out tPSA method. Measured values of a patient??sample can vary depending on the testing procedure used. PSA values determined on patient samples by different testing procedures cannot be used interchangeably. If there is a change in PSA assays while monitoring therapy, sequential testing should be performed to confirm baseline values. Performed By: #### L [phone] #### [facility] [address] [place], [place], [id number] Lumbar Spine 2 or 3 Viewson 03-23-2024 Lumbar Spine 2 or 3 Views [facility] Imaging Services [address] [place], [place] [address] Lumbar Spine 2 or 3 Views MR#: [id number] Acct: [id number] Name: ROBIN DELAROSA Rep #: [id number] : 1955 M 68 From: Carlos García MD PCP: Dr. Essie Madrid MD Status: REG CLI Study: Lumbar Spine 2 or 3 Views Date of Exam: Exam# [id number] Ordering Dr: Bacilio Ham MD [id number] STUDY: X-RAY - LUMBAR SPINE REASON FOR EXAM: Male, 68 years old. POST LAMINECTOMY SYNDROME TECHNIQUE: 3 view(s) of the lumbar spine were obtained. COMPARISON: None FINDINGS: Normal lumbar lordosis. Moderate dextroscoliosis centered at L2. There is a normal alignment of the vertebrae. There is multilevel endplate spondylosis of the lumbar vertebrae. There is multi-level degenerative disc disease with multi-level disc space narrowing. There is multilevel facet hypertrophy. The soft tissue structures are unremarkable. RAD/Lumbar Spine 2 or 3 Views IMPRESSION: Moderate dextroscoliosis with degenerative disc disease. MRI may be useful. Electronically Signed: Carlos García MD at 8:32 EST , CC: Dr. Bacilio Ham MD; Dr. Essie Madrid MD Manager Multimedia: Signed Normal [facility] CBC W Auto Differential pane l (Bld)Ordered By: Juan Lawler on 11-08-2023 Basophils (Bld) [#/Vol] 0.0 10*3/uL 0.0 - 0.2 10*3/uL [facility] Basophils/100 WBC (Bld) 0.3 % 0.0 - 2.0 % [facility] Eosinophils (Bld) [#/Vol] 0.2 10*3/uL 0.0 - 0.5 10*3/uL [facility] Eosinophils/100 WBC (Bld) 4.9 % 0.0 - 6.0 % [facility] Erythrocyte distribution width (RBC) [Ratio] 12.3 % 11.5 - 15.0 % [facility] Hematocrit (Bld) [Volume fraction] 37.4 % Low 40.0 - 52.0 % [facility] Hemoglobin (Bld) [Mass/Vol] 13.2 g/dL 13.0 - 18.0 g/dL [facility] [employer] Immature granulocytes (Bld) [#/Vol] 0.0 10*3/uL NINF - 0.1 10*3/uL [facility] [employer] Immature granulocytes/100 WBC (Bld) 0.3 % 0.0 - 2.0 % [facility] Interpretation and review of laboratory results Abnormal [facility] Lymphocytes (Bld) [#/Vol] 0.6 10*3/uL Low 1.0 - 4.3 10*3/uL [facility] Lymphocytes/100 WBC (Bld) 15.1 % 15.0 - 45.0 % [facility] MCH (RBC) [Entitic mass] 31.5 pg 26.0 - 34.0 pg [facility] MCHC (RBC) [Mass/Vol] 35.3 % 30.5 - 36.0 % [facility] MCV (RBC) [Entitic vol] 89.3 fL 77.0 - 99.0 fL [facility] Monocytes (Bld) [#/Vol] 0.4 10*3/uL 0.0 - 0.9 10*3/uL [facility] Monocytes/100 WBC (Bld) 9.9 % 5.0 - 13.0 % [facility] Neutrophils (Bld) [#/Vol] 2.7 10*3/uL 1.8 - 7.5 10*3/uL [facility] Neutrophils/100 WBC (Bld) 69.5 % 38.0 - 82.0 % [facility] Nucleated RBC/100 WBC (Bld) [Ratio] 0.0 % [facility] Platelet mean volume (Bld) [Entitic vol] 10.0 fL 9.0 - 12.7 fL [facility] Comment on above: MPV is a calculated measurement using platelet volume ratio Platelets (Bld) [#/Vol] 231 10*3/uL 140 - 440 10*3/uL [facility] RBC (Bld) [#/Vol] 4.19 10*6/uL Low 4.40 - 5.9 0 10*6/uL [facility] WBC (Bld) [#/Vol] 3.9 10*3/uL 3.6 - 10.7 10*3/uL [facility] CBC WITH AUTO DIFFERENTIALon 11-08-2023 Basophils (Bld) [#/Vol] 0.0 10*3/uL Normal 0.0-0.2 [facility] Comment on above: Performed By: #### L [id number] #### Software Applications Engineer: KRISTY GERONIMO ([id number]) [facility] [facility]) [address] [place] [address] [place] Basophils/100 WBC (Bld) 0.3 % Normal 0.0-2.0 [facility] Comment on above: Performed By: #### L [id number] #### Software Applications Engineer: KRISTY GERONIMO ([id number]) [facility] ([employer]) [address] [place] [address] Eosinophils (Bld) [#/Vol] 0.2 10*3/uL Normal 0.0-0.5 [facility] Comment on above: Performed By: #### L [id number] #### Software Applications Engineer: KRISTY GERONIMO ([id number]) [facility] [employer] ([employer]) [address] [place] [address] [place] Eosinophils/100 WBC (Bld) 4.9 % Normal 0.0-6.0 [facility] Comment on above: Performed By: #### L [id number] #### Software Applications Engineer: KRISTY GERONIMO ([id number]) [employer] ([employer]) [address] [place] [address] Erythrocyte distribution width (RBC) [Ratio] 12.3 % Normal 11.5-15.0 [facility] Comment on above: Performed By: #### L [id number] #### Software Applications Engineer: KRISTY GERONIMO ([id number]) [employer] ([employer]) [address] [place] [address] Hematocrit (Bld) [Volume fraction] 37.4 % Low 40.0-52.0 [facility] Comment on above: Performed By: #### L [id number] #### Software Applications Engineer: KRISTY GERONIMO ([id number]) [facility] ([facility]) [address] [place] [address] Hemoglobin (Bld) [Mass/Vol] 13.2 g/dL Normal 13.0-18.0 [facility] Comment on above: Performed By: #### L [id number] #### Software Applications Engineer: KRISTY GERONIMO ([id number]) [facility] [employer] (SWRLAB) [address] [place] [address] IMMATURE GRANS % 0.3 % Normal 0.0-2.0 [facility] Comment on above: Performed By: #### L [id number] #### Software Applications Engineer: KRISTY GERONIMO ([id number]) [facility] [employer] (SWRL[employer]) [address] [place] [address] IMMATURE GRANS ABSOLUTE 0.0 10*3/uL Normal <0.1 [facility] Comment on above: Performed By: #### L [id number] #### Software Applications Engineer: KRISTY GERONIMO ([id number]) [facility] [employer] (SWRLAB) [address] [place] [address] Lymphocytes (Bld) [#/Vol] 0.6 10*3/uL Low 1.0-4.3 [facility] Comment on above: Performed By: #### L [id number] #### Software Applications Engineer: KRISTY GERONIMO ([id number]) [facility] [employer] (SWRLAB) [address] [place] [address] Lymphocytes/100 WBC (Bld) 15.1 % Normal 15.0-45.0 [facility] Comment on above: Performed By: #### L [id number] #### Software Applications Engineer: KRISTY GERONIMO ([id number]) [facility] [employer] (SWRLAB) [address] [place] [address] MCH (RBC) [Entitic mass] 31.5 pg Normal 26.0-34.0 [facility] Comment on above: Performed By: #### L [id number] #### Software Applications Engineer: KRISTY GERONIMO ([id number]) [facility]ENTERAs[facility] [employer] (SWRL[employer]) [address] [place] [address] [place] MCHC 35.3 % Normal 30.5-36.0 [facility] Comment on above: Performed By: #### L [id number] #### Software Applications Engineer: KRISTY GERONIMO ([id number]) [facility] [employer] (SWRLAB) [address] [place] [address] MCV (RBC) [Entitic vol] 89.3 fL Normal 77.0-99.0 [facility] Comment on above: Performed By: #### L [id number] #### Software Applications Engineer: KRISTY GERONIMO ([id number]) [facility]ENTERA JESSEE RITTMAN (SWRLAB) [address] [place] [address] Monocytes (Bld) [#/Vol] 0.4 10*3/uL Normal 0.0-0.9 [facility] Comment on above: Performed By: #### L [id number] #### Software Applications Engineer: KRISTY GERONIMO ([id number]) [facility]ENTERAs[facility] [employer] (SWRLAB) [address] [place] [address] [place] Monocytes/100 WBC (Bld) 9.9 % Normal 5.0-13.0 [facility] Comment on above: Performed By: #### L [id number] #### Software Applications Engineer: KRISTY GERONIMO ([id number]) [facility]ENTERAs[facility] SHAYJESSEE RITTMAN (SWRLAB) [address] [place] [address] [place] NEUTROPHILS ABSOLUTE 2.7 10*3/uL Normal 1.8-7.5 [facility] Comment on above: Performed By: #### L [id number] #### Software Applications Engineer: KRISTY GERONIMO ([id number]) [facility]ENTERAs[facility] SHAYJESSEE RITTMAN (SWRLAB) [address] [place] [address] [place] Neutrophils/100 WBC (Bld) 69.5 % Normal 38.0-82.0 [facility] Comment on above: Performed By: #### L [id number] #### Software Applications Engineer: KRISTY GERONIMO ([id number]) [facility]ENTERA JESSEE RITTMAN (SWRLAB) [address] [place] [address] [place] NRBC 0.0 /100 WBCs Normal 0.0-2.0 [facility] Comment on above: Performed By: #### L [id number] #### Software Applications Engineer: KRISTY GERONIMO ([id number]) [facility]ENTERAshe[facility] [employer] (SWRLAB) [address] [place] [address] Platelet mean volume (Bld) [Entitic vol] 10.0 fL Normal 9.0-12.7 [facility] Comment on above: Result Comment: MPV is a calculated measurement using platelet volume ratio Performed By: #### L [id number] #### Software Applications Engineer: KRISTY GERONIMO ([id number]) [facility]ENTERAshe[facility] SOLISTMAN (SWRLAB) [address] [place] [address] Platelets (Bld) [#/Vol] 231 10*3/uL Normal 140-440 [facility] Comment on above: Performed By: #### L [id number] #### Software Applications Engineer: KRISTY GERONIMO ([id number]) [facility]ENTERAs[facility] [employer] (SWRLAB) [address] [place] [address] [place] RBC (Bld) [#/Vol] 4.19 10*6/uL Low 4.40-5.90 [facility] Comment on above: Performed By: #### L [id number] #### Software Applications Engineer: KRISTY GERONIMO ([id number]) [facility]ENTERAs[facility] [employer] (SWRLAB) [address] [place] [address] WBC (Bld) [#/Vol] 3.9 10*3/uL Normal 3.6-10.7 [facility] Comment on above: Performed By: #### L [id number] #### Software Applications Engineer: KRISTY GERONIMO ([id number]) [facility]ENTERAs[facility] [employer] (SWRLAB) [address] [place] [address] CBC W/Diff, Automatedon 07-0 7-4 Absolute Lymph 0.25 X10 3/uL Low 0.83-4.51 [facility] Comment on above: Performed By: #### L 100.0100, L500.4050, L503.6005 #### [facility] [address] [place], [address] Absolute Neut 4.4 X10 3/uL Normal 2.0-7.7 [facility] Comment on above: Performed By: #### L 100.0100, L500.4050, L503.6005 #### [facility] [address] [place], [address] Basophils/100 WBC (Bld) 0.6 % Normal 0-1 [facility] Comment on above: Performed By: #### L 100.0100, L500.4050, L503.6005 #### [facility] [address] [place], [address] Eosinophils/100 WBC (Bld) 0.6 % Normal 0-5 [facility] Comment on above: Performed By: #### L 100.0100, L500.4050, L503.6005 #### [facility] [address] [place], [address] Erythrocyte distribution width (RBC) [Ratio] 12.9 % Normal 11.6-14.6 [facility] Comment on above: Performed By: #### L 100.0100, L500.4050, L503.6005 #### [facility] [address] [place], [address] Hematocrit (Bld) [Volume fraction] 35.9 % Low 40-54 [facility] Comment on above: Performed By: #### L 100.0100, L500.4050, L503.6005 #### [facility] [address] [place], [address] Hemoglobin (Bld) [Mass/Vol] 11.9 g/dL Low 13.0-16.5 [facility] Comment on above: Performed By: #### L 100.0100, L500.4050, L503.6005 #### [facility] [address] [place], [address] IG% 0.400 Normal 0.0-0.9 [facility] Comment on above: Result Comment: IG% - Immature Granulocytes (promyelocytes, myelocytes and metamyelocytes) > 1% indicates that a LEFT SHIFT is Present. Performed By: #### L 100.0100, L500.4050, L503.6005 #### [facility] [address] [place], [address] Lymphocytes/100 WBC (Bld) 4.7 % Low 19-41 [facility] Comment on above: Performed By: #### L 100.0100, L500.4050, L503.6005 #### [facility] [address] [place], [address] MCH (RBC) [Entitic mass] 30.7 pg Normal 27.0-32.0 [facility] Comment on above: Performed By: #### L 100.0100, L500.4050, L503.6005 #### [facility] [address] [place], [address] MCHC (RBC) [Mass/Vol] 33.1 g/dL Normal 32-36 [facility] Comment on above: Performed By: #### L 100.0100, L500.4050, L503.6005 #### [facility] [address] [place], [address] MCV (RBC) [Entitic vol] 92.8 fL Normal 80-94 [facility] Comment on above: Performed By: #### L 100.0100, L500.4050, L503.6005 #### [facility] [address] [place], [address] Monocytes/100 WBC (Bld) 12.5 % High 0-10 [facility] Comment on above: Performed By: #### L 100.0100, L500.4050, L503.6005 #### [facility] [address] [place], [address] Neutrophils/100 WBC (Bld) 81.2 % High 47-70 [facility] Comment on above: Performed By: #### L 100.0100, L500.4050, L503.6005 #### [facility] [address] [place], [address] Nucleated RBC (Bld) [#/Vol] 0 10*3/uL Normal 0-5 [facility] Comment on above: Performed By: #### L 100.0100, L500.4050, L503.6005 #### [facility] [address] [place], [address] Platelet mean volume (Bld) [Entitic vol] 10.0 fL Normal 6.2-12.0 [facility] Comment on above: Performed By: #### L 100.0100, L500.4050, L503.6005 #### [facility] [address] [place], [address] Platelets (Bld) [#/Vol] 171 10*3/uL Normal 150-450 [facility] Comment on above: Performed By: #### L 100.0100, L500.4050, L503.6005 #### [facility] [address] [place], [address] RBC (Bld) [#/Vol] 3.87 10*6/uL Low 4.6-6.2 [facility] Comment on above: Performed By: #### L 100.0100, L500.4050, L503.6005 #### [facility] [address] [place], [address] RDW SD 43.8 fl Normal 35.1-43.9 [facility] Comment on above: Performed By: #### L 100.0100, L500.4050, L503.6005 #### [facility] [address] [place], [address] WBC (Bld) [#/Vol] 5.4 10*3/uL Normal 4.4-11.0 [facility] Comment on above: Performed By: #### L 100.0100, L500.4050, L503.6005 #### [facility] [address] [place], [address] Chest PA and Lateralon 11-02 Chest PA and Lateral [facility] Services [address] [place] [address] Chest PA and Lateral MR#: [id number] Acct: [id number] Name: ROBIN DELAROSA Rep #: [id number] : 1955 M 68 From: Humberto Bowers MD PCP: Dr. Essie Madrid MD Status: REG ER Study: Chest PA and Lateral Date of Exam: 11/03/23 Exam# [id number] Ordering Dr: Kevin Marquez [place] [id number] EXAM: XR CHEST, 2 VIEWS CLINICAL INDICATION: cough, fever, rales LLL with egophony TECHNIQUE: Frontal and lateral views of the chest. COMPARISON: No relevant prior studies available. FINDINGS: LUNGS AND PLEURAL SPACES: Normal. No consolidation or edema. No pneumothorax. No effusion. HEART: Normal heart size. MEDIASTINUM: No mediastinal or hilar mass. BONES/JOINTS: No acute abnormality. RAD/Chest PA and Lateral IMPRESSION: No acute cardiopulmonary disease. Electronically Signed: Humberto Bowers MD at 9:12 EDT , CC: Dr. Essie Madrid MD; Dr. Kevin Marquez MD Manager Multimedia: Signed Normal [facility] Comprehensive Metabolic Prof ilon 11-03-2023 Albumin [Mass/Vol] 3.7 g/dL Normal 3.2-5.0 [facility] Comment on above: Performed By: #### L 100.0100, L500.4050, L503.6005 #### [facility] [address] [place], [address] Albumin/Globulin [Mass ratio] 1.2 {ratio} Normal 0.9-2.4 [facility] Comment on above: Performed By: #### L 100.0100, L500.4050, L503.6005 #### [facility] [address] [place], [address] ALK P 61 U/L Normal 45-117 [facility] Comment on above: Performed By: #### L 100.0100, L500.4050, L503.6005 #### [facility] [address] [place], [address] ALT [Catalytic activity/Vol] 32 U/L Normal 16-61 [facility] Comment on above: Performed By: #### L 100.0100, L500.4050, L503.6005 #### [facility] [address] [place], [address] AST [Catalytic activity/Vol] 34 U/L Normal 15-37 [facility] Comment on above: Performed By: #### L 100.0100, L500.4050, L503.6005 #### [facility] [address] [place], [address] Bilirubin [Mass/Vol] 0.60 mg/dL Normal 0.20-1.00 [facility] Comment on above: Result Comment: For patients on eltrombopag therapy, use of Dimension [place] TBIL is not recommended. Performed By: #### L 100.0100, L500.4050, L503.6005 #### [facility] [address] [place], [address] BUN/CRE 25.3 RATIO High 10-20 [facility] Comment on above: Performed By: #### L 100.0100, L500.4050, L503.6005 #### [facility] [address] [place], [address] CA,Total 8.9 mg/dL Normal 8.5-10.1 [facility] Comment on above: Performed By: #### L 100.0100, L500.4050, L503.6005 #### [facility] [address] [place], [address] Chloride [Moles/Vol] 110 mmol/L High 98-107 [facility] Comment on above: Performed By: #### L 100.0100, L500.4050, L503.6005 #### [facility] [address] [place], [address] CO2 [Moles/Vol] 28.0 mmol/L Normal 21.0-32.0 [facility] Comment on above: Performed By: #### L 100.0100, L500.4050, L503.6005 #### [facility] [address] [place], [address] Creatinine [Mass/Vol] 0.83 mg/dL Normal 0.70-1.30 [facility] Comment on above: Result Comment: The validity of the calculated GFR GFRAA in patients over 70 years has not been determined. Clinical correlation is essential. Performed By: #### L 100.0100, L500.4050, L503.6005 #### [facility] [address] [place], [address] ECRCL 90.72 ml/min Normal [facility] Comment on above: Performed By: #### L 100.0100, L500.4050, L503.6005 #### [facility] [address] [place], [address] EST GFR - AA 118 mL/min Normal >60 [facility] Comment on above: Result Comment: Afri can [place] Citizen GFR Calc Performed By: #### L 100.0100, L500.4050, L503.6005 #### [facility] [address] [place], [address] GAP 4 Low 5-15 [facility] Comment on above: Performed By: #### L 100.0100, L500.4050, L503.6005 #### [facility] [address] [place], [address] GFR/1.73 sq M.predicted among non-blacks MDRD (S/P/Bld) [Vol rate/Area] 98 mL/min/{1.73_m2} Normal >60 [facility] Comment on above: Result Comment: Non- GFR Calc Performed By: #### L 100.0100, L500.4050, L503.6005 #### [facility] [address] [place], [address] Globulin (S) [Mass/Vol] 3.2 g/dL Normal 2.2-4.2 [facility] Comment on above: Performed By: #### L 100.0100, L500.4050, L503.6005 #### [facility] [address] [place], [address] Glucose [Mass/Vol] 118 mg/dL High 74-106 [facility] Comment on above: Result Comment: Fast ing Glucose result from 100 to 125 mg/dL suggests IMPAIRED HOMEOSTASIS per A.D.A. criteria. Performed By: #### L 100.0100, L500.4050, L503.6005 #### [facility] [address] [place], [address] Potassium [Moles/Vol] 3.5 mmol/L Normal 3.5-5.1 [facility] Comment on above: Performed By: #### L 100.0100, L500.4050, L503.6005 #### [facility] [address] [place], [address] Sodium [Moles/Vol] 142 mmol/L Normal 136-145 [facility] Comment on above: Performed By: #### L 100.0100, L500.4050, L503.6005 #### [facility] [address] [place], [address] T PROT 6.9 g/dL Normal 6.4-8.2 [facility] Comment on above: Performed By: #### L 100.0100, L500.4050, L503.6005 #### [facility] [address] [place], [address] Urea nitrogen [Mass/Vol] 21 mg/dL High 7-18 [facility] Comment on above: Performed By: #### L 100.0100, L500.4050, L503.6005 #### [facility] [address] [place], [address] Emergency Department Summary on 11-03-2023 Emergency Department Summary [facility] Medical Records Department [address] [place] [address] Emergency Department Summary 11/03/23 MR#: [id number] Acct: [id number] Name: ROBIN DELAROSA Rep #: [id number] : 1955 68 From: Kevin Marquez MD PCP: Dr. Essie Madrid MD Status:REG ER Location: ED HPI History of Present Illness Chief Complaint: [facility] Medical History (Updated 11/03/23 @ 09:[address] Kevin Marquez MD) Osteoarthritis Hypertension Home Medications ???Medication ???Instructions ???Recorded ???Last Taken ???Type levofloxacin 500 mg tablet 500 mg PO DAILY #6 tabs 11/03/23 Unknown Rx Allergy/AdvReac Type Severity Reaction Status Date / Time Penicillins (PCN) Allergy Intermediate NEEDS Verified 11/03/23 08:05 FOLLOW-UP diclofenac AdvReac Intermediate Nausea Verified 11/03/23 08:05 sertraline AdvReac Intermediate Nausea Verified 11/03/23 08:05 Social History (Updated 11/03/23 @ 08:[address] Kevin Marquez MD) household members: spouse Smoking Status: Never smoker substance use type: does not use EXAM Physical Exam Const Vital Signs: 11/03/23 08:01 11/03/23 08:30 11/03/23 08:30 Temperature 97.8 F 99.7 F H Temperature Source Temporal Oral Pulse Rate 62 Respiratory Rate 16 Respiratory Effort Normal Non-Labored Respiratory Pattern Normal Blood Pressure 153/88 H Blood Pressure Mean 109 Pulse Ox 93 Oxygen Delivery Method Room Air MDM MDM Lab Data Labs: Laboratory Results - last 24 hr 11/03/23 08:35 WBC 5.4 RBC 3.87 L Hgb 11.9 L Hct 35.9 L MCV 92.8 MCH 30.7 MCHC 33.1 RDW Std Deviation 43.8 RDW Coeff of Bladimir 12.9 Plt Count 171 MPV 10.0 Immature Gran % (Auto) 0.400 Neut % (Auto) 81.2 H Lymph % (Auto) 4.7 L Morrill % (Auto) 12.5 H Eos % (Auto) 0.6 Baso % (Auto) 0.6 Absolute Neuts (auto) 4.4 Absolute Lymphs (auto) 0.25 L Nucleated RBC % 0 Sodium 142 Potassium 3.5 Chloride 110 H Carbon Dioxide 28.0 Anion Gap 4 L BUN 21 H Creatinine 0.83 Estim Creat Clear Calc 90.72 Est GFR (MDRD) Af Amer 118 Est GFR (MDRD) Non-Af 98 BUN/Creatinine Ratio 25.3 H Glucose 118 H Lactic Acid 0.9 Calcium 8.9 Total Bilirubin 0.60 AST 34 ALT 32 Alkaline Phosphatase 61 Total Protein 6.9 Albumin 3.7 Globulin 3.2 Albumin/Globulin Ratio 1.2 Radiography Diagnostic Testing: Clinical Impression(s) from Imaging Studies Chest X-Ray 11/03/23 08:30 IMPRESSION: No acute cardiopulmonary disease. Electronically Signed: Humberto Bowers MD at 9:12 EDT , Discharge Plan Triage Chief Complaint: Fever ED Provider: Kevin Marquez Dx/Rx/DC Orders Clinical Impression: Community acquired pneumonia, Osteoarthritis, Elevated blood pressure reading with diagnosis of hypertension, Fever Instructions: ED Pneumonia (Adult) Prescriptions: New levofloxacin 500 mg tablet 500 mg PO DAILY Qty: 6 0RF Primary Care Provider: Essie Madrid Referrals: Essie Madrid MD [Primary Care Provider] - 3-5 Days Print Language: Marshallese Disposition Disposition: Home, Self Care What to do if you have Problems For any increased pain, shortness of breath, bleeding, nausea or vomiting, chest pain, or any unexpected problems, contact your Primary Care Provider. Call [facility] ([phone]) or report to the closest Emergency Room. Call 911 if necessary. 11/03/23 0943 Cosigner Signature (if applicable): CC: Dr. Essie Madrid MD Signed Normal [facility] Emergency Department Summary [facility] Medical Records Department [address] [place] [address] Emergency Department Summary 11/03/23 MR#: [id number] Acct: [id number] Name: ROBIN DELAROSA Rep #: [id number] : 1955 68 From: Kevin Marquez MD PCP: Dr. Essie Madrid MD Status:REG ER Location: ED HPI History of Present Illness Chief Complaint: Fever Detail of Chief Complaint: Temperature 101.5 with mild congestion, raspy voice and nonproductive cough Informant: patient and spouse/S.O. Onset/Context/Timing Onset: Yesterday (Evening) Context: Sudden Onset Timing: Intermittent Quality: Yesterday nasal congestion, dyspnea, during the day. Cough last evening, f Location: Respiratory Current Severity: Mild Maximum Severity: Moderate Worsened by: Dyspnea with activity Relieved by: Nothing Associated Symptoms Associated Symptoms: Per HPI narrative Narrative Narrative: Patient is a 68-year-old male with history of hypertension. He had mild congestion yesterday. He also had shortness of breath while showing their horses. He reported fatigue. Last evening he had cough which was nonproductive. This morning at approximately 0730 took his temperature and was 101.4. He has had some chills. He does complain of headache. He does have history of migraines. He denies photophobia. He denies auditory or ear symptoms. He does endorse slight congestion. Denies sore throat. Does endorse change in voice from normal. He also reports intermittent transient chest pain described as dull that lasts 1 minute in duration. There is no associated symptoms nor is or any radiation. There is no exacerbating, precipitating or alleviating factors with regards to the chest discomfort. He denies history of VTE and has no risk factors for VTE. He denies leg pain, swelling discoloration. He does complain of myalgias and arthralgias. Upon clarification he complains of hand pain due to significant osteoarthritis. Prior similar symptoms: No Recent Illness/Hospitalizatio n: No PFSH PFS Medical History (Updated 11/03/23 @ 09:[address] Kevin Marquez MD) Osteoarthritis Hypertension Home Medications ???Medication ???Instructions ???Recorded ???Last Taken ???Type levofloxacin 500 mg tablet 500 mg PO DAILY #6 tabs 11/03/23 Unknown Rx Allergy/AdvReac Type Severity Reaction Status Date / Time Penicillins (PCN) Allergy Intermediate NEEDS Verified 11/03/23 08:05 FOLLOW-UP diclofenac AdvReac Intermediate Nausea Verified 11/03/23 08:05 sertraline AdvReac Intermediate Nausea Verified 11/03/23 08:05 Social History (Updated 11/03/23 @ 08:[address] Kevin Marquez MD) household members: spouse Smoking Status: Never smoker substance use type: does not use ROS ROS ED Constitutional Constitutional ED: Reports chills, fever(s) and sweats; Denies subjective or weight loss Eyes Eyes: Denies blurry vision or change in vision ENT ENT ED: Denies ear pain, rhinorrhea or sore throat Cardiovascular Cardiovascular: Reports chest pain and other Details: Further detailed HPI narrative ; Denies orthopnea, palpitations, paroxysmal nocturnal dyspnea or racing heartbeat Respiratory/Chest Respiratory/Chest: Reports cough, dyspnea and dyspnea on exertion; Denies orthopnea, paroxysmal nocturnal dyspnea or sputum Gastrointestinal Gastrointestinal: Reports nausea and other Details: Patient had dry heaves x 2 this morning. ; Denies abdominal pain, constipation, diarrhea, melena or vomiting Genitourinary Genitourinary ED: Reports other Details: History of benign prostatic hypertrophy. ; Denies dysuria, hematuria or urinary frequency Musculoskeletal Musculoskeletal: Reports arthralgias and myalgias; Denies back pain Integumentary Denies rash Neurologic Neurologic: Reports headache(s) and weakness; Denies paresthesias Endocrine Endocrinology: Denies cold intolerance or heat intolerance Hematologic/Lymphatic Hematologic/Lymphatic: Reports systems reviewed and no addt'l complaints, except as documented EXAM Physical Exam Const Vital Signs: 11/03/23 08:01 11/03/23 08:30 Temperature 97.8 F Temperature Source Temporal Pulse Rate 62 Respiratory Rate 16 Respiratory Effort Normal Non-Labored Respiratory Pattern Normal Blood Pressure 153/88 H Blood Pressure Mean 109 Pulse Ox 93 Oxygen Delivery Method Room Air Positive well nourished and well developed General Appearance ED: well developed, NAD and pallor; Negative for cyanotic or diaphoretic HEENT Reports dry mucous membranes HEENT Narrative: Head is atraumatic normocephalic. Ears normal. Posterior pharynx is normal. Mouth ED: Yes dry mucous membranes Mouth: dry mucous membranes Eyes PERRL and EOMs intact bilaterally General Eye ED: Negative for pale conjunctiva or scleral icterus Neck no lymphadenopathy, supp (more content not included)... Normal [facility] Lactic Acidon 11-03-2023 Lactate [Moles/Vol] 0.9 mmol/L Normal 0.4-1.9 [facility] Comment on above: Order Comment: Y Performed By: #### L 100.0100, L500.4050, L503.6005 #### [facility] [address] [place], [address] CBC W/Diff, Automatedon 08-27 Absolute Lymph 0.62 X10 3/uL Low 0.83-4.51 [facility] Comment on above: Performed By: #### L 100.0100, L500.4100, L500.4050 #### [facility] [address] [place], [address] Absolute Neut 2.9 X10 3/uL Normal 2.0-7.7 [facility] Comment on above: Performed By: #### L 100.0100, L500.4100, L500.4050 #### [facility] [address] [place], [address] Basophils/100 WBC (Bld) 1.2 % High 0-1 [facility] Comment on above: Performed By: #### L 100.0100, L500.4100, L500.4050 #### [facility] [address] [place], [address] Eosinophils/100 WBC (Bld) 4.6 % Normal 0-5 [facility] Comment on above: Performed By: #### L 100.0100, L500.4100, L500.4050 #### [facility] [address] [place], [address] Erythrocyte distribution width (RBC) [Ratio] 12.7 % Normal 11.6-14.6 [facility] Comment on above: Performed By: #### L 100.0100, L500.4100, L500.4050 #### [facility] [address] [place], [address] Hematocrit (Bld) [Volume fraction] 39.8 % Low 40-54 [facility] Comment on above: Performed By: #### L 100.0100, L500.4100, L500.4050 #### [facility] [address] [place], [address] Hemoglobin (Bld) [Mass/Vol] 13.5 g/dL Normal 13.0-16.5 [facility] Comment on above: Performed By: #### L 100.0100, L500.4100, L500.4050 #### [facility] [address] [place], [address] IG% 0.200 Normal 0.0-0.9 [facility] Comment on above: Result Comment: IG% - Immature Granulocytes (promyelocytes, myelocytes and metamyelocytes) > 1% indicates that a LEFT SHIFT is Present. Performed By: #### L 100.0100, L500.4100, L500.4050 #### [facility] [address] [place], [address] Lymphocytes/100 WBC (Bld) 15.0 % Low 19-41 [facility] Comment on above: Performed By: #### L 100.0100, L500.4100, L500.4050 #### [facility] [address] [place], [address] MCH (RBC) [Entitic mass] 30.8 pg Normal 27.0-32.0 [facility] Comment on above: Performed By: #### L 100.0100, L500.4100, L500.4050 #### [facility] [address] [place], [address] MCHC (RBC) [Mass/Vol] 33.9 g/dL Normal 32-36 [facility] Comment on above: Performed By: #### L 100.0100, L500.4100, L500.4050 #### [facility] [address] [place], [address] MCV (RBC) [Entitic vol] 90.7 fL Normal 80-94 [facility] Comment on above: Performed By: #### L 100.0100, L500.4100, L500.4050 #### [facility] [address] [place], [address] Monocytes/100 WBC (Bld) 9.7 % Normal 0-10 [facility] Comment on above: Performed By: #### L 100.0100, L500.4100, L500.4050 #### [facility] [address] [place], [address] Neutrophils/100 WBC (Bld) 69.3 % Normal 47-70 [facility] Comment on above: Performed By: #### L 100.0100, L500.4100, L500.4050 #### [facility] [address] [place], [address] Nucleated RBC (Bld) [#/Vol] 0 10*3/uL Normal 0-5 [facility] Comment on above: Performed By: #### L 100.0100, L500.4100, L500.4050 #### [facility] [address] [place], [address] Platelet mean volume (Bld) [Entitic vol] 10.3 fL Normal 6.2-12.0 [facility] Comment on above: Performed By: #### L 100.0100, L500.4100, L500.4050 #### [facility] [address] [place], [address] Platelets (Bld) [#/Vol] 220 10*3/uL Normal 150-450 [facility] Comment on above: Performed By: #### L 100.0100, L500.4100, L500.4050 #### [facility] [address] [place], [address] RBC (Bld) [#/Vol] 4.39 10*6/uL Low 4.6-6.2 [facility] Comment on above: Performed By: #### L 100.0100, L500.4100, L500.4050 #### [facility] [address] [place], [address] RDW SD 41.7 fl Normal 35.1-43.9 [facility] Comment on above: Performed By: #### L 100.0100, L500.4100, L500.4050 #### [facility] [address] [place], [address] WBC (Bld) [#/Vol] 4.1 10*3/uL Low 4.4-11.0 [facility] Comment on above: Performed By: #### L 100.0100, L500.4100, L500.4050 #### [facility] [address] [place], [address] Comprehensive Metabolic Prof ilon 09-10-2023 Albumin [Mass/Vol] 3.7 g/dL Normal 3.2-5.0 [facility] Comment on above: Performed By: #### L 100.0100, L500.4100, L500.4050 #### [facility] [address] [place], [address] Albumin/Globulin [Mass ratio] 1.1 {ratio} Normal 0.9-2.4 [facility] Comment on above: Performed By: #### L 100.0100, L500.4100, L500.4050 #### [facility] [address] [place], [address] ALK P 70 U/L Normal 45-117 [facility] Comment on above: Performed By: #### L 100.0100, L500.4100, L500.4050 #### [facility] [address] [place], [address] ALT [Catalytic activity/Vol] 30 U/L Normal 16-61 [facility] Comment on above: Performed By: #### L 100.0100, L500.4100, L500.4050 #### [facility] [address] [place], [address] AST [Catalytic activity/Vol] 21 U/L Normal 15-37 [facility] Comment on above: Performed By: #### L 100.0100, L500.4100, L500.4050 #### [facility] [address] [place], [address] Bilirubin [Mass/Vol] 0.80 mg/dL Normal 0.20-1.00 [facility] Comment on above: Result Comment: For patients on eltrombopag therapy, use of Dimension [place] TBIL is not recommended. Performed By: #### L 100.0100, L500.4100, L500.4050 #### [facility] [address] [place], [address] BUN/CRE 27.7 RATIO High 10-20 [facility] Comment on above: Performed By: #### L 100.0100, L500.4100, L500.4050 #### [facility] [address] [place], [address] CA,Total 9.0 mg/dL Normal 8.5-10.1 [facility] Comment on above: Performed By: #### L 100.0100, L500.4100, L500.4050 #### [facility] [address] [place], [address] Chloride [Moles/Vol] 107 mmol/L Normal 98-107 [facility] Comment on above: Performed By: #### L 100.0100, L500.4100, L500.4050 #### [facility] [address] [place], [address] CO2 [Moles/Vol] 29.0 mmol/L Normal 21.0-32.0 [facility] Comment on above: Performed By: #### L 100.0100, L500.4100, L500.4050 #### [facility] [address] [place], [address] Creatinine [Mass/Vol] 0.76 mg/dL Normal 0.70-1.30 [facility] Comment on above: Result Comment: The validity of the calculated GFR GFRAA in patients over 70 years has not been determined. Clinical correlation is essential. Performed By: #### L 100.0100, L500.4100, L500.4050 #### [facility] [address] [place], [address] EST GFR - AA 132 mL/min Normal >60 [facility] Comment on above: Result Comment: Afri can [place] Citizen GFR Calc Performed By: #### L 100.0100, L500.4100, L500.4050 #### [facility] [address] [place], [address] GAP 4 Low 5-15 [facility] Comment on above: Performed By: #### L 100.0100, L500.4100, L500.4050 #### [facility] [address] [place], [address] GFR/1.73 sq M.predicted among non-blacks MDRD (S/P/Bld) [Vol rate/Area] 109 mL/min/{1.73_m2} Normal >60 [facility] Comment on above: Result Comment: Non- GFR Calc Performed By: #### L 100.0100, L500.4100, L500.4050 #### [facility] [address] [place], [address] Globulin (S) [Mass/Vol] 3.5 g/dL Normal 2.2-4.2 [facility] Comment on above: Performed By: #### L 100.0100, L500.4100, L500.4050 #### [facility] [address] [place], [address] Glucose [Mass/Vol] 106 mg/dL Normal 74-106 [facility] Comment on above: Result Comment: Fast ing Glucose result from 100 to 125 mg/dL suggests IMPAIRED HOMEOSTASIS per A.D.A. criteria. Performed By: #### L 100.0100, L500.4100, L500.4050 #### [facility] [address] [place], [address] Potassium [Moles/Vol] 3.6 mmol/L Normal 3.5-5.1 [facility] Comment on above: Performed By: #### L 100.0100, L500.4100, L500.4050 #### [facility] [address] [place], [address] Sodium [Moles/Vol] 140 mmol/L Normal 136-145 [facility] Comment on above: Performed By: #### L 100.0100, L500.4100, L500.4050 #### [facility] [address] [place], [address] T PROT 7.2 g/dL Normal 6.4-8.2 [facility] Comment on above: Performed By: #### L 100.0100, L500.4100, L500.4050 #### [facility] [address] [place], [address] Urea nitrogen [Mass/Vol] 21 mg/dL High 7-18 [facility] Comment on above: Performed By: #### L 100.0100, L500.4100, L500.4050 #### [facility] [address] [place], [address] Lipid Profileon 09-10-2023 Cholesterol [Mass/Vol] 169 mg/dL Normal 200 [facility] Comment on above: Result Comment: <200 mg/dL Desirable 200-240 mg/dL Borderline >240 mg/dL High Risk Performed By: #### L 100.0100, L500.4050, L503.6005 #### [facility] [address] [place], [address] Cholesterol in HDL [Mass/Vol] 63 mg/dL Normal [facility] Comment on above: Result Comment: The drugs N-Acetylcysteine and Metamizole may falsely depress this assay. Reference Range HDL <40 mg/dL Low HDL Cholesterol HDL >or= 60 mg/dL High HDL Cholesterol Performed By: #### L 100.0100, L500.4050, L503.6005 #### [facility] [address] [place], [address] Cholesterol in LDL [Mass/Vol] 93 mg/dL Normal 0-130 [facility] Comment on above: Performed By: #### L 100.0100, L500.4050, L503.6005 #### [facility] [address] [place], [address] Cholesterol in VLDL [Mass/Vol] 13 mg/dL Normal 5-40 [facility] Comment on above: Performed By: #### L 100.0100, L500.4050, L503.6005 #### [facility] [address] [place], [address] Triglyceride [Mass/Vol] 65 mg/dL Normal [facility] Comment on above: Result Comment: The drugs N-Acetylcysteine and Metamizole may falsely depress this assay. Serum Triglycerides Reference Interval Normal <150 mg/dL Borderline high 150 - 199 mg/dL High 200 - 499 mg/dL Very High > or = 500 mg/dL Performed By: #### L 100.0100, L500.4050, L503.6005 #### [facility] [address] [place], [address] Basophil percentageon 2023 Basophil percentage 3.11 ng/mL 0.0-4.0 [facility] Comment on above: This test was perfor med using the TPSA assay method for the[facility] chemistry system. Values obtained with differentassay methods cannot be used interchangably.When changing PSA assays in the course of monitoring apatient, additional sequential testing should be carriedout to confirm baseline values. CNOVon 07-22-2023 CNOV Office Visit ([facility] ) ROBIN DELAROSA ([id number]) 1955 M Date Time Provider Department 07/22/23 11:30 AM GISELL EMANUEL During your visit today, we recorded the following information about you: Braxton Kristy KEILA Carter 07/22/2023 12:30 PM Signed [facility] ROOMING INTAKE FLOWSHEET DATA Patient here today 9 weeks 5 days post op right thumb CMC arthroplasty with tendon transfer and suspension, 1st dorsal compartment release and right CTR. The thumb incision is red and irritated today. He states that started at the end of last week and today it looks worse. He denies any drainage from the area or fever. He has been wearing a brace for support. Gisell Emanuel PA-C 07/22/2023 12:30 PM Signed Gisell Emanuel PA-C Department of Orthopaedics Orthopaedics [address] [facility] [address] Dept: [phone] Dept July 22, 2023 CHIEF COMPLAINT: Established Patient and Post Op of the Right Hand. ASSESSMENT: M18.11 Primary osteoarthritis of first carpometacarpal joint of right hand (primary encounter diagnosis) T81.41XA Postoperative stitch abscess SUMMARY/PLAN: Patient presents 9 weeks and 5 days status post right CMC arthroplasty. He is doing very well, denies any pain at today's visit, still some discomfort with radial deviation of the wrist. He continues to wear the brace but only for certain activities. Has a localized area of redness and swelling along his incision site, looks like he may be developing a bit of a stitch abscess. Will get him on a short course of an oral antibiotic. Continue to transition out of the brace as he feels comfortable doing so. I asked him to message us or call if the redness along the incision line does not resolve. Exam: Incision site is well-healed, there is an area almost midline which is erythematous, there is a small pustule just under the skin. Surrounding tissues are not erythematous, there is mild but appropriate edema near the incision site extending up into the thumb. Patient is able to easily oppose the thumb with all of the digits and abduct the thumb. No radial sensory hypersensitivity noted. Imaging: Deferred today. Mr. Robin Delarosa was advised as to contrast therapies and/or to take analgesics/anti-inflam matories as needed and all contraindications were reviewed. Supporting Information Below: Medications: Current Outpatient Medications Medication Sig amLODIPine (NORVASC) 5 mg tablet Take 5 mg by mouth once daily. atenolol (TENORMIN) 25 mg tablet Take 25 mg by mouth once daily. citalopram hydrobromide (CELEXA) 10 mg tablet Take 10 mg by mouth once daily. diclofenac (VOLTAREN) 1 % topical gel Apply 2 g to affected area as needed. finasteride (PROSCAR) 5 mg tablet meloxicam (MOBIC) 15 mg tablet Take 15 mg by mouth as needed. mometasone (ELOCON) 0.1 % cream Apply 1 g to affected area as needed. omeprazole (PRILOSEC) 20 mg capsule Take 20 mg by mouth once daily. pravastatin (PRAVACHOL) 20 mg tablet Take 20 mg by mouth once daily. rizatriptan (MAXALT) 10 mg tablet Take 10 mg by mouth as needed. Terazosin HCl (HYTRIN) 10 mg capsule Take 10 mg by mouth once daily. Valsartan-hydroCHLOROt hiazide 320-12.5 mg per tablet Take 1 tablet by mouth once daily. cephALEXin (KEFLEX) 250 mg capsule Take 1 capsule by mouth four times daily for 5 days. No current facility-administered medications for this visit. Allergies: Celecoxib, Diclofenac, Penicillin G, and Sertraline This note was partially generated using [employer] voice recognition system, and there may be some incorrect words, spellings, and punctuation that were not noted in checking the note before saving. Gisell Emanuel PA-C Referring Provider: JOHN FRY [[id number]] Allergies As of Date: 07/22/2023 Noted Allergy Reaction CELECOXIB 05/01/2023 8 - GI Upset DICLOFENAC 05/01/2023 8 - GI Upset PENICILLIN G 04/01/2023 16 - Unknown SERTRALINE 04/01/2023 16 - Unknown Date Reviewed: 07/22/2023 Reviewed by: Kristy Limon MA - Fully Assessed Reason for Visit: Established Patient [175] Post Op [174] Primary Visit Diagnosis:Primary osteoarthritis of first carpometacarpal joint of right hand [M18.11] Other Visit Diagnosis:Postoperativ e stitch abscess [T81.41XA] Order(s):cephALEXin (KEFLEX) 250 mg capsuleTake 1 capsule by mouth four times daily for 5 days.Disp: 20 capsuleRfl: 0 Prescriptions as of 07/22/2023 - cephALEXin (KEFLEX) 250 mg capsule Take 1 capsule by mouth four times daily for 5 days. - amLODIPine (NORVASC) 5 mg tablet Take 5 mg by mouth once daily. - atenolol (TENORMIN) 25 mg tablet Take 25 mg by mouth once daily. - citalopram hydrobromide (CELEXA) 10 mg tablet Take 10 mg by mouth once daily. - diclofenac (VOLTAREN) 1 % topical gel Apply 2 g to affected area as needed. - finasteride (PROSCAR) 5 mg tablet - meloxicam (MOBIC) (more content not included)... Normal [facility] CNTHERAPYon 06-25-2023 CNTHERAPY [facility] ROBIN DELAROSA ([id number]) 1955 M Date Time Provider Department 06/25/23 11:45 AM CHEN FUNEZ [facility] Date Time Provider Department Center 06/25/2023 11:45 AM [id number] FUNEZ [facility] Reason for Visit: Occupational Therapy [504] Primary Visit Diagnosis:Primary osteoarthritis of first carpometacarpal joint of right hand [M18.11] Allergies As of Date: 06/25/2023 Noted Allergy Reaction CELECOXIB 05/01/2023 8 - GI Upset DICLOFENAC 05/01/2023 8 - GI Upset PENICILLIN G 04/01/2023 16 - Unknown SERTRALINE 04/01/2023 16 - Unknown Date Reviewed: 06/11/2023 Reviewed by: John Fry MD - Fully Assessed Prescriptions as of 06/25/2023 - amLODIPine (NORVASC) 5 mg tablet Take 5 mg by mouth once daily. - atenolol (TENORMIN) 25 mg tablet Take 25 mg by mouth once daily. - citalopram hydrobromide (CELEXA) 10 mg tablet Take 10 mg by mouth once daily. - diclofenac (VOLTAREN) 1 % topical gel Apply 2 g to affected area as needed. - finasteride (PROSCAR) 5 mg tablet - meloxicam (MOBIC) 15 mg tablet Take 15 mg by mouth as needed. - mometasone (ELOCON) 0.1 % cream Apply 1 g to affected area as needed. - omeprazole (PRILOSEC) 20 mg capsule Take 20 mg by mouth once daily. - pravastatin (PRAVACHOL) 20 mg tablet Take 20 mg by mouth once daily. - rizatriptan (MAXALT) 10 mg tablet Take 10 mg by mouth as needed. - Terazosin HCl (HYTRIN) 10 mg capsule Take 10 mg by mouth once daily. - Valsartan-hydroCHLOROt hiazide 320-12.5 mg per tablet Take 1 tablet by mouth once daily. Annotated image of OT HAND PUTTY EXERCISES COMPREHENSIVE PG 1 OF 3 last updated by Chen Funez OT/L on 06/25/2023 12:00 PM Annotated image of OT HAND PUTTY EXERCISES COMPREHENSIVE PG 3 OF 3 last updated by Chen Funez OT/Armando on 06/25/2023 12:00 PM Annotated image of OT HAND STRENGTHENING ISOTONIC WRIST last updated by Chen Funez OT/L on 06/25/2023 12:00 PM [facility] CNTHERAPYon 06-18-2023 CNTHERAPY OT/PT/Speech Visit ([facility]) ROBIN DELAROSA ([id number]) 1955 M Date Time Provider Department 06/18/23 3:00 PM CHEN FUNEZ [facility] Date Time Provider Department Center 06/18/2023 3:00 PM [id number] FUNEZ [facility] Med Reason for Visit: Occupational Therapy [504] Primary Visit Diagnosis:Primary osteoarthritis of first carpometacarpal joint of right hand [M18.11] Allergies As of Date: 06/18/2023 Noted Allergy Reaction CELECOXIB 05/01/2023 8 - GI Upset DICLOFENAC 05/01/2023 8 - GI Upset PENICILLIN G 04/01/2023 16 - Unknown SERTRALINE 04/01/2023 16 - Unknown Date Reviewed: 06/11/2023 Reviewed by: John Fry MD - Fully Assessed Prescriptions as of 06/18/2023 - amLODIPine (NORVASC) 5 mg tablet Take 5 mg by mouth once daily. - atenolol (TENORMIN) 25 mg tablet Take 25 mg by mouth once daily. - citalopram hydrobromide (CELEXA) 10 mg tablet Take 10 mg by mouth once daily. - diclofenac (VOLTAREN) 1 % topical gel Apply 2 g to affected area as needed. - finasteride (PROSCAR) 5 mg tablet - meloxicam (MOBIC) 15 mg tablet Take 15 mg by mouth as needed. - mometasone (ELOCON) 0.1 % cream Apply 1 g to affected area as needed. - omeprazole (PRILOSEC) 20 mg capsule Take 20 mg by mouth once daily. - pravastatin (PRAVACHOL) 20 mg tablet Take 20 mg by mouth once daily. - rizatriptan (MAXALT) 10 mg tablet Take 10 mg by mouth as needed. - Terazosin HCl (HYTRIN) 10 mg capsule Take 10 mg by mouth once daily. - Valsartan-hydroCHLOROt hiazide 320-12.5 mg per tablet Take 1 tablet by mouth once daily. [facility] 06-11-2023 [facility] Office Visit (ORMDNA ) ROBIN DELAROSA ([id number]) 1955 M Date Time Provider Department 06/11/23 10:30 AM JOHN FRY During your visit today, we recorded the following information about you: John Fry MD 06/11/2023 10:49 AM Signed John Fry MD Department of Orthopaedics Orthopaedics [address] [place] [id number] Dept: [phone] June 11, 2023 CHIEF COMPLAINT: Established Patient and Post Op of the Right Hand. HPI Patient is 3 weeks 6 days post op right CMC arthroplasty with tendon transfer and suspension, 1st dorsal compartment release and right CTR. He denies pain. New x-ray today. ASSESSMENT: M18.11 Primary osteoarthritis of first carpometacarpal joint of right hand (primary encounter diagnosis) SUMMARY/PLAN: He is doing very well so far after surgery. He is going to be getting his hand-based splint placed later this week or early next. Continue range of motion. See him in a month. Exam: Incision. No swelling. Good range of motion in the hand considering his history of severe arthritis. Imagin views of the hand show trapeziectomy without any interval concerns. Mr. Robin Delarosa was advised as to contrast therapies and/or to take analgesics/anti-inflam matories as needed and all contraindications were reviewed. Supporting Information Below: Medications: Current Outpatient Medications Medication Sig amLODIPine (NORVASC) 5 mg tablet Take 5 mg by mouth once daily. atenolol (TENORMIN) 25 mg tablet Take 25 mg by mouth once daily. citalopram hydrobromide (CELEXA) 10 mg tablet Take 10 mg by mouth once daily. finasteride (PROSCAR) 5 mg tablet meloxicam (MOBIC) 15 mg tablet Take 15 mg by mouth as needed. omeprazole (PRILOSEC) 20 mg capsule Take 20 mg by mouth once daily. pravastatin (PRAVACHOL) 20 mg tablet Take 20 mg by mouth once daily. Terazosin HCl (HYTRIN) 10 mg capsule Take 10 mg by mouth once daily. Valsartan-hydroCHLOROt hiazide 320-12.5 mg per tablet Take 1 tablet by mouth once daily. diclofenac (VOLTAREN) 1 % topical gel Apply 2 g to affected area as needed. mometasone (ELOCON) 0.1 % cream Apply 1 g to affected area as needed. rizatriptan (MAXALT) 10 mg tablet Take 10 mg by mouth as needed. No current facility-administered medications for this visit. Allergies: Celecoxib, Diclofenac, Penicillin G, and Sertraline John Fry MD Allergies As of Date: 06/11/2023 Noted Allergy Reaction CELECOXIB 05/01/2023 8 - GI Upset DICLOFENAC 05/01/2023 8 - GI Upset PENICILLIN G 04/01/2023 16 - Unknown SERTRALINE 04/01/2023 16 - Unknown Date Reviewed: 06/11/2023 Reviewed by: John Fry MD - Fully Assessed Reason for Visit: Established Patient [175] Post Op [174] Primary Visit Diagnosis:Primary osteoarthritis of first carpometacarpal joint of right hand [M18.11] Prescriptions as of 06/11/2023 - amLODIPine (NORVASC) 5 mg tablet Take 5 mg by mouth once daily. - atenolol (TENORMIN) 25 mg tablet Take 25 mg by mouth once daily. - citalopram hydrobromide (CELEXA) 10 mg tablet Take 10 mg by mouth once daily. - diclofenac (VOLTAREN) 1 % topical gel Apply 2 g to affected area as needed. - finasteride (PROSCAR) 5 mg tablet - meloxicam (MOBIC) 15 mg tablet Take 15 mg by mouth as needed. - mometasone (ELOCON) 0.1 % cream Apply 1 g to affected area as needed. - omeprazole (PRILOSEC) 20 mg capsule Take 20 mg by mouth once daily. - pravastatin (PRAVACHOL) 20 mg tablet Take 20 mg by mouth once daily. - rizatriptan (MAXALT) 10 mg tablet Take 10 mg by mouth as needed. - Terazosin HCl (HYTRIN) 10 mg capsule Take 10 mg by mouth once daily. - Valsartan-hydroCHLOROt hiazide 320-12.5 mg per tablet Take 1 tablet by mouth once daily. Problem List As Of Date 06/11/2023 Noted Resolved Acute pain of right shoulder [M25.511] 09/28/2022 05/01/2023 BPH with urinary obstruction [N40.1, N13.8] 02/09/2021 Essential hypertension, benign [I10] 05/01/2023 Mixed hyperlipidemia [E78.2] 05/01/2023 LOIDA (obstructive sleep apnea) [G47.33] 05/01/2023 Anxiety and depression [F41.9, F32.A] 05/01/2023 GERD (gastroesophageal reflux disease) [K21.9] 05/01/2023 Migraine headache [G43.909] 05/01/2023 Post laminectomy syndrome [M96.1] 05/01/2023 Encounter Status:Closed by JOHN FRY on 06/11/23 [facility] XR HAND 3V PA/LAT/OBL RTon 0 06-11-2023 XR HAND 3V PA/LAT/OBL RT * * *Final Report* * * DATE OF EXAM: Jun 11 2023 10:05AM SHANDRA 5346 - XR HAND 3V PA/LAT/OBL RT / PROCEDURE REASON: M18.11-Primary osteoarthritis of first carpometacarpal joint of right hand * * * * Physician Interpretation * * * * History: Primary osteoarthritis FINDINGS/ IMPRESSION: AP, lateral, and oblique views of the right hand are compared to the prior study of 02/28/2023. Since the prior study patient has undergone trapezium ectomy. Small calcifications seen in the surgical bed. Again seen are advanced degenerative changes of interphalangeal joints with erosive changes involving the distal aspect of the middle phalanx of the second digit and base of the middle phalanx of the third digit. No acute process is seen. Manager Multimedia: [facility] Transcribe Date/Time: Jun 11 2023 10:40A Dictated by : MANDY LARA MD This examination was interpreted and the report reviewed and electronically signed by: MANDY LARA MD on Jun 11 2023 10:42AM EST [id number] [facility] XR Hand - right PA and Later al and Obliqueon 06-11-2023 IMPRESSION: AP, lateral, and oblique views of the right hand are compared to the prior study of 02/28/2023. Since the prior study patient has undergone trapezium ectomy. Small calcifications seen in the surgical bed. Again seen are advanced degenerative changes of interphalangeal joints with erosive changes involving the distal aspect of the middle phalanx of the second digit and base of the middle phalanx of the third digit. No acute process is seen. Manager Multimedia: [facility] Transcribe Date/Time: Jun 11 2023 10:40A Dictated by : MANDY LARA MD This examination was interpreted and the report reviewed and electronically signed by: MANDY LARA MD on Jun 11 2023 10:42AM EST [facility] * * *Final Report* * * DATE OF EXAM: Jun 11 2023 10:05AM SHANDRA 5346 - XR HAND 3V PA/LAT/OBL RT / PROCEDURE REASON: M18.11-Primary osteoarthritis of first carpometacarpal joint of right hand * * * * Physician Interpretation * * * * History: Primary osteoarthritis FINDINGS/ [facility] Provider, [facility] - 06/11/2023 * * *Final Report* * * DATE OF EXAM: Jun 11 2023 10:05AM O 5346 - XR HAND 3V PA/LAT/OBL RT / PROCEDURE REASON: M18.11-Primary osteoarthritis of first carpometacarpal joint of right hand * * * * Physician Interpretation * * * * History: Primary osteoarthritis FINDINGS/ IMPRESSION IMPRESSION: AP, lateral, and oblique views of the right hand are compared to the prior study of 02/28/2023. Since the prior study patient has undergone trapezium ectomy. Small calcifications seen in the surgical bed. Again seen are advanced degenerative changes of interphalangeal joints with erosive changes involving the distal aspect of the middle phalanx of the second digit and base of the middle phalanx of the third digit. No acute process is seen. Manager Multimedia: [facility] Transcribe Date/Time: Jun 11 2023 10:40A Dictated by : MANDY LARA MD This examination was interpreted and the report reviewed and electronically signed by: MANDY LARA MD on Jun 11 2023 10:42AM EST [facility] Radiology Study observation (narrative) [facility] XR Hand - right PA and Later al and ObliqueOrdered By: [facility] Provider on 06-11-2023 [facility] CNTHERAPYon 06-04-2023 [facility]APY OT/PT/Speech Visit ([facility]) ROBIN DELAROSA ([id number]) 1955 M Date Time Provider Department 06/04/23 3:45 PM CHEN FUNEZ [facility] Date Time Provider Department Center 06/04/2023 3:45 PM [id number] FUNE[facility] Med Reason for Visit: Occupational Therapy [504] Primary Visit Diagnosis:Primary osteoarthritis of first carpometacarpal joint of right hand [M18.11] Allergies As of Date: 06/04/2023 Noted Allergy Reaction CELECOXIB 05/01/2023 8 - GI Upset DICLOFENAC 05/01/2023 8 - GI Upset PENICILLIN G 04/01/2023 16 - Unknown SERTRALINE 04/01/2023 16 - Unknown Date Reviewed: 05/28/2023 Reviewed by: Gisell Emanuel PA-C - Fully Assessed Prescriptions as of 06/04/2023 - amLODIPine (NORVASC) 5 mg tablet Take 5 mg by mouth once daily. - atenolol (TENORMIN) 25 mg tablet Take 25 mg by mouth once daily. - citalopram hydrobromide (CELEXA) 10 mg tablet Take 10 mg by mouth once daily. - diclofenac (VOLTAREN) 1 % topical gel Apply 2 g to affected area as needed. - finasteride (PROSCAR) 5 mg tablet - meloxicam (MOBIC) 15 mg tablet Take 15 mg by mouth as needed. - mometasone (ELOCON) 0.1 % cream Apply 1 g to affected area as needed. - omeprazole (PRILOSEC) 20 mg capsule Take 20 mg by mouth once daily. - pravastatin (PRAVACHOL) 20 mg tablet Take 20 mg by mouth once daily. - rizatriptan (MAXALT) 10 mg tablet Take 10 mg by mouth as needed. - Terazosin HCl (HYTRIN) 10 mg capsule Take 10 mg by mouth once daily. - Valsartan-hydroCHLOROt hiazide 320-12.5 mg per tablet Take 1 tablet by mouth once daily. Annotated image of OT HAND POST-OPERATIVE THUMB EXERCISES last updated by Chen Funez OT/L on 06/04/2023 4:13 PM Annotated image of OT HAND SCAR MANAGEMENT PAGE 1 OF 2 last updated by Chen Funez OT/L on 06/04/2023 4:13 PM [facility] 05-28-2023 [facility] Office Visit (PRABHU ) ROBIN DELAROSA ([id number]) 1955 M Date Time Provider Department 05/28/23 10:00 AM GISELL EMANUEL During your visit today, we recorded the following information about you: Gisell Emanuel PA-C 05/28/2023 10:25 AM Signed Gisell Emanuel PA-C Department of Orthopaedics Orth[facility]ics [address] [address] Dept: [phone] May 28, 2023 CHIEF COMPLAINT: Established Patient, Post Op, and Pain of the Right Hand. ASSESSMENT: M18.11 Primary osteoarthritis of first carpometacarpal joint of right hand (primary encounter diagnosis) G56.01 Right carpal tunnel syndrome SUMMARY/PLAN: Patient presents just about 2 weeks status post right thumb CMC arthroplasty and right carpal tunnel release. He is doing well, having some intermittent 2 out of 10 throbbing pain in the base of the thumb. Will get him into occupational therapy for an Orthoplast splint, we discussed splint can be removed for hygiene purposes and to work on range of motion exercises. Will see him back in 2 weeks as planned. Exam: Both incision sites are well-approximated without erythema or drainage, there is mild but appropriate edema at the base of the thumb extending up into the digit. Patient is able to gently oppose the thumb and index finger, no radial sensory hypersensitivity. Sensations intact in the radial 3 digits on the right. Imaging: Deferred today. Mr. Robin Delarosa was advised as to contrast therapies and/or to take analgesics/anti-inflam matories as needed and all contraindications were reviewed. Supporting Information Below: Medications: Current Outpatient Medications Medication Sig amLODIPine (NORVASC) 5 mg tablet Take 5 mg by mouth once daily. atenolol (TENORMIN) 25 mg tablet Take 25 mg by mouth once daily. citalopram hydrobromide (CELEXA) 10 mg tablet Take 10 mg by mouth once daily. diclofenac (VOLTAREN) 1 % topical gel Apply 2 g to affected area as needed. finasteride (PROSCAR) 5 mg tablet meloxicam (MOBIC) 15 mg tablet Take 15 mg by mouth as needed. mometasone (ELOCON) 0.1 % cream Apply 1 g to affected area as needed. omeprazole (PRILOSEC) 20 mg capsule Take 20 mg by mouth once daily. pravastatin (PRAVACHOL) 20 mg tablet Take 20 mg by mouth once daily. rizatriptan (MAXALT) 10 mg tablet Take 10 mg by mouth as needed. Terazosin HCl (HYTRIN) 10 mg capsule Take 10 mg by mouth once daily. Valsartan-hydroCHLOROt hiazide 320-12.5 mg per tablet Take 1 tablet by mouth once daily. No current facility-administered medications for this visit. Allergies: Celecoxib, Diclofenac, Penicillin G, and Sertraline This note was partially generated using Fleep voice recognition system, and there may be some incorrect words, spellings, and punctuation that were not noted in checking the note before saving. Gisell Emanuel PA-C Allergies As of Date: 05/28/2023 Noted Allergy Reaction CELECOXIB 05/01/2023 8 - GI Upset DICLOFENAC 05/01/2023 8 - GI Upset PENICILLIN G 04/01/2023 16 - Unknown SERTRALINE 04/01/2023 16 - Unknown Date Reviewed: 05/28/2023 Reviewed by: Gisell Emanuel PA-C - Fully Assessed Reason for Visit: Established Patient [175] Post Op [174] Pain [78] Primary Visit Diagnosis:Primary osteoarthritis of first carpometacarpal joint of right hand [M18.11] Other Visit Diagnosis:Right carpal tunnel syndrome [G56.01] Prescriptions as of 05/28/2023 - amLODIPine (NORVASC) 5 mg tablet Take 5 mg by mouth once daily. - atenolol (TENORMIN) 25 mg tablet Take 25 mg by mouth once daily. - citalopram hydrobromide (CELEXA) 10 mg tablet Take 10 mg by mouth once daily. - diclofenac (VOLTAREN) 1 % topical gel Apply 2 g to affected area as needed. - finasteride (PROSCAR) 5 mg tablet - meloxicam (MOBIC) 15 mg tablet Take 15 mg by mouth as needed. - mometasone (ELOCON) 0.1 % cream Apply 1 g to affected area as needed. - omeprazole (PRILOSEC) 20 mg capsule Take 20 mg by mouth once daily. - pravastatin (PRAVACHOL) 20 mg tablet Take 20 mg by mouth once daily. - rizatriptan (MAXALT) 10 mg tablet Take 10 mg by mouth as needed. - Terazosin HCl (HYTRIN) 10 mg capsule Take 10 mg by mouth once daily. - Valsartan-hydroCHLOROt hiazide 320-12.5 mg per tablet Take 1 tablet by mouth once daily. Problem List As Of Date 05/28/2023 Noted Resolved Acute pain of right shoulder [M25.511] 09/28/2022 05/01/2023 BPH with urinary obstruction [N40.1, N13.8] 02/09/2021 Essential hypertension, benign [I10] 05/01/2023 Mixed hyperlipidemia [E78.2] 05/01/2023 LOIDA (obstructive sleep apnea) [G47.33] 05/01/2023 Anxiety and depression [F41.9, F32.A] 05/01/2023 GERD (gastroesophageal reflux disease) [K21.9] 05/01/2023 Migraine headache [G43.909] 05/01/2023 Post laminectomy syndrome [M96.1] 05/01/2023 Encounter Status:Close (more content not included)... [facility] CNTHERAPYon 05-28-2023 CNTHERAPY OT/PT/Speech Visit ([facility]) ROBIN DELAROSA ([id number]) 1955 M Date Time Provider Department 05/28/23 11:00 AM [facility] Date Time Provider Department Center 05/28/2023 11:00 AM [id number] FUNEZ [facility] Reason for Visit: OT EVAL [748] Primary Visit Diagnosis:Primary osteoarthritis of first carpometacarpal joint of right hand [M18.11] Allergies As of Date: 05/28/2023 Noted Allergy Reaction CELECOXIB 05/01/2023 8 - GI Upset DICLOFENAC 05/01/2023 8 - GI Upset PENICILLIN G 04/01/2023 16 - Unknown SERTRALINE 04/01/2023 16 - Unknown Date Reviewed: 05/28/2023 Reviewed by: Gisell Emaneul PA-C - Fully Assessed Prescriptions as of 05/28/2023 - amLODIPine (NORVASC) 5 mg tablet Take 5 mg by mouth once daily. - atenolol (TENORMIN) 25 mg tablet Take 25 mg by mouth once daily. - citalopram hydrobromide (CELEXA) 10 mg tablet Take 10 mg by mouth once daily. - diclofenac (VOLTAREN) 1 % topical gel Apply 2 g to affected area as needed. - finasteride (PROSCAR) 5 mg tablet - meloxicam (MOBIC) 15 mg tablet Take 15 mg by mouth as needed. - mometasone (ELOCON) 0.1 % cream Apply 1 g to affected area as needed. - omeprazole (PRILOSEC) 20 mg capsule Take 20 mg by mouth once daily. - pravastatin (PRAVACHOL) 20 mg tablet Take 20 mg by mouth once daily. - rizatriptan (MAXALT) 10 mg tablet Take 10 mg by mouth as needed. - Terazosin HCl (HYTRIN) 10 mg capsule Take 10 mg by mouth once daily. - Valsartan-hydroCHLOROt hiazide 320-12.5 mg per tablet Take 1 tablet by mouth once daily. Annotated image of OT HAND POST OPERATIVE INSTRUCTIONS last updated by Chen Funez OT/Armando on 05/28/2023 11:40 AM Annotated image of OT HAND POST-OPERATIVE THUMB EXERCISES last updated by Chen Funez OT/Armando on 05/28/2023 11:40 AM Annotated image of OT HAND POST-OPERATIVE WRIST EXERCISES last updated by Chen Funez OT/Armando on 05/28/2023 11:40 AM Annotated image of OT HAND TENDON GLIDES FINGERS last updated by Chen Funez OT/Armando on 05/28/2023 11:40 AM Letter Text Normal [facility] ANES POSTPROC EVALon 024 ANES POSTPROC EVAL HNO ID: [id number] Author: RITESH DUARTE MD Service: Anesthesiology Author Type: Anesthesiologist Type: Anesthesia Postprocedure Evaluation Filed: 05/15/2023 13:19 Note Text: POST ANESTHESIA EVALUATION NOTE : 1955 Procedure Summary Date: 05/15/23 Room / Location: [place] [address] / [place] Anesthesia Start: 1122 Anesthesia Stop: 1311 Procedures: ARTHROPLASTY CARPOMETACARPAL JOINTS (Right: Hand) DECOMPRESSION NERVE MEDIAN CARPAL TUNNEL (Right: Wrist) Diagnosis: Primary osteoarthritis of first carpometacarpal joint of right hand Right carpal tunnel syndrome (Primary osteoarthritis of first carpometacarpal joint of right hand [M18.11]) (Right carpal tunnel syndrome [G56.01]) Surgeons: John Fry MD Responsible Provider: Ritesh Duarte MD Anesthesia Type: MAC ASA Status: 2 Anesthesia Type: MAC Last Vitals Vitals Value Taken Time BP 143/83 05/15/23 1319 Temp 36.6 05/15/23 1319 Pulse 53 05/15/23 1319 Resp 16 05/15/23 1319 SpO2 98 05/15/23 1319 Post Anesthesia Patient Status Patient Evaluation: bedside. Anticipated Disposition: phase 2 then home. Neurological Status: aware and responsive. Pulmonary Status: breathing comfortably on room air Airway Control: returned to baseline unsupported. Cardiovascular Status: stable. Pain Management: clinically adequate Postoperative Hydration: acceptable. Intraoperative Events: no significant anesthesia events Post Operative Nausea/Vomiting Status: no significant post operative nausea or vomiting Recommendation: continue current plan of care. Anesthesia Observations No Documentation SIGNATURE: Ritesh Duarte MD PATIENT NAME: Robin Delarosa DATE: May 15, 2023 TIME: 1:19 PM CSN: [id number] [facility] ANES PRE-OPon 05-15-2023 ANES PRE-OP HNO ID: [id number] Author: RITESH DUARTE MD Service: Anesthesiology Author Type: Anesthesiologist Type: Anesthesia Preprocedure Evaluation Filed: 05/15/2023 10:11 Note Text: ANESTHESIOLOGY DAY OF SURGERY NOTE : 1955 Procedure Information Date/Time: 05/15/23 1118 Procedures: ARTHROPLASTY CARPOMETACARPAL JOINTS (Right: Hand) DECOMPRESSION NERVE MEDIAN CARPAL TUNNEL (Right: Wrist) Location: [place] OR02 / [place] Surgeons: John Fry MD Estimated body mass index is 26.17 kg/m? as calculated from the following: Height as of this encounter: 179.1 cm (5' 10.5). Weight as of this encounter: 83.9 kg (185 lb). Most recent hematocrit and potassium results: No results found for this basename: HCT,HEMATOCRIT,K,POTAS SIUM Relevant Problems ANESTHESIA (+) LOIDA (obstructive sleep apnea) CARDIO (+) Essential hypertension, benign (+) Migraine headache GI (+) GERD (gastroesophageal reflux disease) NEURO-PSYCH (+) Migraine headache PULMONARY (+) LOIDA (obstructive sleep apnea) I - PHYSICAL EVALUATION AIRWAY Patient intubated: No. Tracheostomy tube not present Mallampati: II. TM distance: >3 FB. Neck ROM: full ROM without neurological symptoms. Mouth opening: adequate. Short neck: no. Thick neck: no DENTAL Normal dental observations. Dental findings: teeth intact. Additional exam findings: yes. CARDIOVASCULAR Normal cardiovascular observations. Rhythm: regular Rate: normal PULMONARY Normal pulmonary observations. Breath sounds clear to auscultation. II - ANESTHESIA PLAN ASA Score: 2 Anesthetic Plan: MAC The patient is not a current smoker. NPO Status: adequate Beta Santa Monitoring Plan Monitoring plan: standard ASA. Post Procedure Analgesic Plan Postoperative analgesic plan: parenteral or oral opioids, multimodal analgesia and peripheral nerve block. Informed Consent Anesthetic risks, benefits, alternatives, personnel and consent discussed: yes. Patient / Responsible Constitution Party agrees to proceed: yes Patient / Surrogate agrees to blood products: blood products not planned DNR status not reviewed with patient and/or family prior to surgery. Significant changes in the patient condition since the History and Physical, not otherwise documented in primary service progress note: no. Potential Anesthesia issues that may suggest increased risk of complications or contraindication to planned procedure: none. Discussed the possibility of lip / dental damage: yes Vitals Value Taken Time BP 178/91 05/15/23 0957 Pulse 75 05/15/23 0957 Resp 14 05/15/23 0957 Temp 36.4 ?C (97.5 ?F) 05/15/2357 SpO2 98 % 05/15/2357 Facility-Administered Medications as of 05/15/2023 Medication Dose Route Frequency - lidocaine (PF) 10 mg/mL (1 %) 1-2 mg injection (XYLOCAINE) 0.1-0.2 mL INTRADERMAL PRN - lactated ringers iv infusion 5-30 mL/hr INTRAVENOUS CONTINUOUS - NaCl 0.9% iv flush bag 20 mL INTRAVENOUS PRN - ceFAZolin iv piggyback 2 g in D5W (iso-osmotic) 100 mL (ANCEF) 2 g INTRAVENOUS Pre-Op Once - metoclopramide HCl 10 mg injection (REGLAN) 10 mg INTRAVENOUS Pre-Op Once - famotidine 20 mg injection (PEPCID) 20 mg INTRAVENOUS Pre-Op Once - midazolam (PF) 2 mg injection (VERSED) 2 mg INTRAVENOUS ONCE Outpatient Medications as of 05/15/2023 Medication Sig - amLODIPine (NORVASC) 5 mg tablet Take 5 mg by mouth once daily. - atenolol (TENORMIN) 25 mg tablet Take 25 mg by mouth once daily. - citalopram hydrobromide (CELEXA) 10 mg tablet Take 10 mg by mouth once daily. - diclofenac (VOLTAREN) 1 % topical gel Apply 2 g to affected area as needed. - finasteride (PROSCAR) 5 mg tablet - meloxicam (MOBIC) 15 mg tablet Take 15 mg by mouth as needed. - mometasone (ELOCON) 0.1 % cream Apply 1 g to affected area as needed. - omeprazole (PRILOSEC) 20 mg capsule Take 20 mg by mouth once daily. - pravastatin (PRAVACHOL) 20 mg tablet Take 20 mg by mouth once daily. - Terazosin HCl (HYTRIN) 10 mg capsule Take 10 mg by mouth once daily. - Valsartan-hydroCHLOROt hiazide 320-12.5 mg per tablet Take 1 tablet by mouth once daily. - rizatriptan (MAXALT) 10 mg tablet Take 10 mg by mouth as needed. I have interviewed and examined the patient. I have reviewed the medical record and/or the pre-anesthesia evaluation, pertinent labs, and test results. This contains updated information obtained within 48 hours of Surgery/Procedure. SIGNATURE: Ritesh Duarte MD PATIENT NAME: Robin Delarosa DATE: May 15, 2023 TIME: 10:11 AM CSN: [id number] [facility] NURSING PROGon 05-15-2023 NURSING PROG HNO ID: [id number] Author: MARS NAGY RN Service: ? Author Type: Registered Nurse Type: Nursing Progress Note Filed: 05/15/2023 11:19 Note Text: 1055 monitor nsr 1100 right axillary nerve block done preop by dr duarte using sonisite ultrasound skin prep done by dr duarte 1112 block completed [facility] OPERATIVE NOon 05-15-2023 OPERATIVE NO HNO ID: [id number] Author: JOHN FRY MD Service: Orthopaedic Surgery Author Type: Physician Type: Operative Report Filed: 05/18/2023 11:10 Note Text: OPERATIVE/PROCEDURE REPORT LOG ID: [id number] SURGERY/PROCEDURE DATE: 05/15/2023 INCISION/PROCEDURE START TIME: 11:42 AM INCISION CLOSE/PROCEDURE END TIME: 1:09 PM SURGEON(S)/PROCEDURALI ST(S) AND HEATING AND VENTILATION ENGINEER(S): Surgeon(s) and Role: * John Fry MD - Primary Physician Social Services Designee: Kamila Zhou PA-C SURGERY/PROCEDURE(S): Right thumb, carpometacarpal arthroplasty with tendon transfer and suspension. Right wrist, first dorsal compartment release; synovectomy. Right, carpal tunnel, release. ANESTHESIA: [facility] - Extremity Upper SURGERY/PROCEDURE DETAILS: This is a pleasant,68 male with a history of Right thumb carpometacarpal joint arthritis who has exhausted nonoperative management. In addition, severe carpal tunnel on the right. We reviewed the risks, benefits, alternatives and potential complications involving both operative nonoperative treatment. He wished to pursue surgery on the thumb and carpal tunnel. In the preoperative area pt was marked by myself and subsequently had an upper extremity block placed per the anesthetic team. Pt received 2g of Ancef in the IV within 1 hour of incision or tourniquet. Pt was then taken the operative suite and placed in a supine position with an armboard on the right. All other bony landmarks were properly padded in standard fashion. Anesthesia assumed care of the head and neck for the remainder the case and began a supplemental anesthetic. All other bony prominences were padded accordingly. A well padded tourniquet was applied to the upper arm. The upper extremity was then sterilely prepped and draped in standard fashion. A timeout was conducted and all in the room were in agreement, signed consent form was on the chart, images were available for viewing and implants were in the room with representation. Next, The upper extremity was then exsanguinated with an esmarch bandage and the tourniquet was applied at 250mmHg. A dorsal incision was made directly over the CMC joint with a 15 blade through the dermis. Care was taken to identify the radial sensory nerve branches and these were protected throughout the case. I then came down through the interval between the APL and EPB tendons. The compartments containing these were released following back proximally releasing the first dorsal compartment. The CMC joint capsule was then identified and incised along the ulnar border of the APL tendon. The radial artery branches were identified proximal to this and were protected with a Ragnell retractor. Full-thickness flap of capsule was then elevated to expose the trapezium. I dissected out all of the borders of the trapezium confirming the metacarpal trapezial joint as well as the trapezium scaphoid joints. There was severe OA with eburnated bone and sclerosis, few loose bodies. I then used a reciprocating saw to score an x into the trapezium and then a small osteotome was used to split it in line with the FCR tendon is running deep to it. Both rongeur as well as Adson-Brown with a knife was used to completely remove all the portions of the trapezium. The wound was copiously irrigated and I used a [place] to inspect the joint to make sure there were no remaining fragments as well as inspecting the scaphoid trapezial joint which was looking appropriate in this case. I then used an 0 FiberWire passed between the APL tendon distally and the FCR tendon near its insertion at the index metacarpal and the trapeziectomy site. The suture was tightened down with a series of 7 kn and a second one was placed in a [id number] fashion to provide a suspension for the thumb metacarpal. With axial loading there was no subluxation or proximal migration of the metacarpal. The FCR proximal to this tenodesis was released with a 15 blade. I copiously irrigated the joint again. Next, A longitudinal incision was made with in line with the third web space from 1 cm distal of the wrist crease to Aguirre's cardinal line. I used Jennifer Rakes to retract the soft tissues. Bipolar electrocautery was used for hemostasis. I bluntly dissected down with Littler scissors to distal edge of the transverse carpal ligament until a flash of fat was noted. I directly divided distal edge of the transverse carpal ligament with a #15 blade. Attention was then focused on the proximal portion and I used Littler scissors to bluntly dissect off the volar surface of the transverse carpal ligament. A carpal tunnel and median nerve protection guide was slid directly under the ligament for dilation and a second time for appropriate positioning, this was passed freely without any resistance. Subsequently, I selected a mini meniscotome [place] blade and slid this in the protective guide, completely dividing the transverse car (more content not included)... [facility] HISTORY PHYSICALon HISTORY PHYSICAL HNO ID: [id number] Author: Padmini Vargas APRN.SLIP COVER SEAMSTRESS Service: ? Author Type: Nurse Practitioner Type: HANDP Filed: 05/01/2023 9:05 AM Note Text: HISTORY AND PHYSICAL EXAMINATION SERVICE DATE: 05/01/2023 SERVICE TIME: 9:04 AM PRIMARY CARE PHYSICIAN: Essie Madrid MD Assessment Patient has the following medical conditions which may affect corinne-operative course: BPH with urinary obstruction Assessment: controlled on rx, hx post-op urinary retention requiring catheter x1 week after back surgery Essential hypertension, benign Assessment: controlled on rx Last 14 BP Last 14 Encounter BP Readings: Date: BP: 05/01/2023 142/92 Mixed hyperlipidemia Assessment: c/w statin LOIDA (obstructive sleep apnea) Assessment: non-compliant with CPAP Anxiety and depression Assessment: stable on rx per pt GERD (gastroesophageal reflux disease) Assessment: controlled on rx Migraine headache Assessment: rx as needed Post laminectomy syndrome Assessment: receiving back injections, following OSH pain management [place] Activity Status Index: METS: Climb a flight of stairs or walk up a hill (5.50 METs) DASI Score: 5.5 Patient denies any chest pain or undue shortness of breath with the above physical activity. Clinical Frailty Scale: 3. Well, with treated comorbid disease STOP-Bang Score: Snores loudly Often feels tired, fatigued, or sleepy during the daytime Has or is being treated for high blood pressure Patient over 50 years old Male patient Has not been observed to stop breathing or choking/gasping during sleep BMI less than or equal to 35 kg/m2 Does not have a large neck STOP-Bang Score: 5 [id number] Score: Age: 65-74 Sex: male CHF history: No Hypertension history: Yes Stroke/TIA/thromboembo lism history: No Vascular disease history: No Diabetes history: No [id number] Score: 2 ARISCAT Score: Age: 51-80 Preoperative SpO2: >=96% Respiratory infection in the last month: No Preoperative anemia: No Surgical incision: peripheral Duration of surgery: 2-3 hrs Emergency procedure: No ARISCAT Score: 19 ANESTHESIA FINDINGS: Intubation History: No history of difficult intubation Significant Anesthesia Considerations: hx post-op urinary retention Airway History: No history of difficult airway I - PHYSICAL EVALUATION AIRWAY Patient intubated: No. Tracheostomy tube not present Mallampati: III. TM distance: >3 FB. Neck ROM: full ROM without neurological symptoms. Mouth opening: adequate. Short neck: no. Thick neck: no Hand present: no Lip Bite Test: I Microretrognathia/Micr onagthia/Recessed Chin: No DENTAL Dental findings: teeth intact. Additional comments: +crowns/back. II - ANESTHESIA PLAN Anesthetic Plan: other Beta [place] Monitoring Plan Post Procedure Analgesic Plan Informed Consent Anesthetic risks, benefits, alternatives, personnel and consent discussed: yes. Patient / Responsible Constitution Party agrees to proceed: yes Patient / Surrogate agrees to blood products: blood products not planned Discussed the possibility of lip / dental damage: yes REASON FOR VISIT: Robin Delarosa is a 68 year old male who is scheduled for Procedure(s): ARTHROPLASTY CARPOMETACARPAL JOINTS (Right) DECOMPRESSION NERVE MEDIAN CARPAL TUNNEL (Right) at the request of Dr. John Fry for consultation. My final recommendation will be communicated back to the requesting physician by way of shared medical record or letter. Subjective The patient has the following: ACTIVE PROBLEM LIST Bph With Urinary Obstruction Essential Hypertension, Benign Mixed Hyperlipidemia [place] (Obstructive Sleep Apnea) Anxiety and Depression Gerd (Gastroesophageal Reflux Disease) Migraine Headache Post Laminectomy Syndrome COVID-19 Immunization Status Covid-19 Vaccine (Series Information) Completed 02/11/2023 Imm Admin: COVID-19 vaccine, age 12+ yr, season (PFIZER-BIONTECH) 01/03/2022 Imm Admin: COVID-19 vaccine, age 12+ yr, bivalent (PFIZER-BIONTECH) 02/09/2021 Imm Admin: COVID-19 original vaccine, age 12+ yr, monovalent (PFIZER-BIONTECH - PURPLE TOP) Only the first 3 history entries have been loaded, but more history exists. CHIEF COMPLAINT: Pre-op exam HPI: Robin Delarosa is a 68 year old seen for PAC due to scheduled above surgery because of CMC OA and CTS. 02/28/2023, Gabrielle Benton PA-C CHIEF COMPLAINT: New, Pain, and Numbness of the Right Hand HPI: Mr. Robin Delarosa is a 67 year old right hand dominant male. He presents today with right hand pain and numbness that has been present for years. Today he rates his pain a 2 on a scale of 0 to 10 at rest. The pain is worse with activity. He has had pain in his right thumb for years. He describes the pain as dull/achy at rest and sharp with activity. He has had intermittent numbness/tingling in his right hand digits 1-4 intermittently for the past few yea (more content not included)... [facility] [place] [facility] ROBIN DELAROS[facility] ([id number]) 1955 M Date Time Provider Department 04/09/23 JOHN FRY During your visit today, we recorded the following information about you: Liyah Hayes Ma 04/09/2023 4:43 PM Signed Patient scheduled for Right thumb CMC arthroplasty with tendon transfer and suspension, and Right CTR on 05/15/23. Liyah Hayes Ma 04/11/2023 10:34 AM Signed Surgical request completed. Gisell, please sign OT order. Gisell Emanuel PA-C 04/11/2023 12:21 PM Signed OT order signed. Braxton Seals Kristy Raul 04/11/2023 1:41 PM Signed Please schedule patient for OT to follow the fist post op on 05/28/2023. I will mail to the patient with post op appointments. Thank you! Hayes Liyah Seals 04/15/2023 2:51 PM Signed Surgery scheduled as requested. Allergies As of Date: 04/09/2023 Noted Allergy Reaction PENICILLIN G 04/01/2023 16 - Unknown SERTRALINE 04/01/2023 16 - Unknown Date Reviewed: 04/01/2023 Reviewed by: John Fry MD - Fully Assessed Reason for Visit: Schedule Surgery [1330] Primary Visit Diagnosis:Primary osteoarthritis of first carpometacarpal joint of right hand [M18.11] Other Visit Diagnosis:Right carpal tunnel syndrome [G56.01] Order(s):SURGICAL REQUEST - ELECTIVE (11/2019) [[id number]] Order #: [id number]: 1 CONSULT TO CUT PLUG PACKER [[id number]] Order #: [id number]: 1 FUTURE Prescriptions as of 04/15/2023 - amLODIPine (NORVASC) 5 mg tablet Take 5 mg by mouth once daily. - atenolol (TENORMIN) 25 mg tablet Take 25 mg by mouth once daily. - citalopram hydrobromide (CELEXA) 10 mg tablet Take 10 mg by mouth once daily. - diclofenac (VOLTAREN) 1 % topical gel Apply 2 g to affected area as needed. - finasteride (PROSCAR) 5 mg tablet - meloxicam (MOBIC) 15 mg tablet Take 15 mg by mouth as needed. - mometasone (ELOCON) 0.1 % cream Apply 1 g to affected area as needed. - omeprazole (PRILOSEC) 20 mg capsule Take 20 mg by mouth once daily. - pravastatin (PRAVACHOL) 20 mg tablet Take 20 mg by mouth once daily. - rizatriptan (MAXALT) 10 mg tablet Take 10 mg by mouth as needed. - Terazosin HCl (HYTRIN) 10 mg capsule Take 10 mg by mouth once daily. - Valsartan-hydroCHLOROt hiazide 320-12.5 mg per tablet Take 1 tablet by mouth once daily. Problem List As Of Date 04/09/2023 Noted Resolved Acute pain of right shoulder [M25.511] 09/28/2022 Letter Text Encounter Status:Closed by LIYAH HAYES MA on 04/15/23 [facility] CNOVon 04-01-2023 CNOV Office Visit (ORTHWS ) ROBIN DELAROSA ([id number]) 1955 M Date Time Provider Department 04/01/23 1:30 PM JOHN FRY During your visit today, we recorded the following information about you: John Fry MD 04/30/2023 9:26 AM Signed John Fry MD Department of Orthopaedics Orthopaedics [address] [facility] [address] Dept: [phone] Dept April 01, 2023 CHIEF COMPLAINT: Established Patient of the Right Hand (Right CTS and OA right thumb. /Referred by JESSI Meeks/EMG 03/08/2023) HPI: Patient here for right hand pain. States he had a CMC surgery on his left thumb before. His is present at this visit. ASSESSMENT: M18.11 Primary osteoarthritis of first carpometacarpal joint of right hand (primary encounter diagnosis) G56.01 Carpal tunnel syndrome of right wrist PLAN: We reviewed the risks, benefits, alternatives and potential complications with both operative and non-op treatments for both the thumb and carpal tunnel. He would like to proceed with both. FOLLOW UP INSTRUCTIONS: Per the patient's wishes. Mr. Robin Delarosa was advised as to contrast therapies and/or to take analgesics/anti-inflam matories as needed and all contraindications were reviewed. OBJECTIVE: Mr. Robin Delarosa is a pleasant 67 year old in no apparent distress. Gen:There were no vitals taken for this visit. nl development, non obese, no deformities ENT: Normocephalic, normal hearing, moist mucosa CV: Pulses:Radial= 2+ and symmetric, capillary refill < 2 secs, no peripheral edema/varicosities Skin: no rash, bruising or lesions. Good turgor. Psych: cooperative and appropriate, alert and oriented x 3, good mood and affect. Musculoskeletal: Swelling and tenderness at the basal joint of the thumb. Pain and crepitus with limited motion at the CMC joint. There is 20 degrees of hyperextension at the MCP joint. Positive Tinel's, positive MNCT at the wrist; diminished light touch sensation in the median nerve distribution. Severe, yet pain free PIPs at Middle, ring, and small. Severe at DIPs as well without pain. IMAGING: Electrodiagnostic examination of the right upper limb with additional nerve conduction studies of the left upper limb, reveals changes most consistent with the followin. Bilateral median mononeuropathies at or distal to the wrist (consistent with a clinical diagnosis of carpal tunnel syndrome), severe in degree on the right and mild in degree on the left electrically. 2. Residuals of an old/chronic intraspinal canal lesion (ie: motor radiculopathy) at the following root(s)/segment(s): -RIGHT C5, C6, C7, and C8, mild in degree electrically, without evidence of ongoing motor axon loss. IMPRESSION: Findings as discussed under Results portion of report. Manager Multimedia: ALEJANDRO Transcribe Date/Time: Mar 01 2023 1:12P Dictated by : MELISSA MCARTHUR DO This examination was interpreted and the report reviewed and electronically signed by: MELISSA MCARTHUR DO on Mar 01 2023 1:13PM EST Results-Findings * * *Final Report* * * DATE OF EXAM: Feb 28 2023 9:16AM SHANDRA 5346 - XR HAND 3V PA/LAT/OBL RT / PROCEDURE REASON: [id number] * * * * Physician Interpretation * * * * EXAM(s): XR HAND 3V PA/LAT/OBL RT EXAM DATE/TIME: 02/28/2023 9:16 AM HISTORY: 67 years old Clinical information: Pain numbness and tingling has gotten worse the last month TECHNIQUE: Images: XR HAND 3V PA/LAT/OBL RT Comparison: None. RESULT: Findings: Severe narrowing of the first metacarpal carpal joint. Marked bony demineralization. There are erosive changes in the distal end of the middle phalanx of the index finger proximal end of the middle phalanx third digit distal end of the proximal phalanx of the third digit Bone density appears well-preserved. No fractures or dislocations are seen. Supporting Subjective Information Below: Past Medical History: PAST MEDICAL HISTORY Diagnosis Date Arthritis neck, back, hands Essential hypertension Hypertrophy of prostate with urinary obstruction Past Surgical History: PAST SURGICAL HISTORY Procedure Laterality Date ARTHRODESIS CMC JNT THUMB W/WO FIX Left Family History: FAMILY HISTORY Problem Relation Age of Onset Pancreatic Cancer Sister other (heart bypass) Brother Diabetes Brother Social History: Social History Tobacco Use Smoking status: Never Smokeless tobacco: Never Substance Use Topics Alcohol use: Yes Comment: Ocassionally - wine Drug use: Never Medications: Current Outpatient Medications Medication Sig amLODIPine (NORVASC) 5 mg tablet Take 5 mg by mouth once daily. atenolol (TENORMIN) 25 mg tablet Take 25 mg by mouth once daily. citalopram hydrobromide (CELEXA) 10 mg tablet Take 10 mg by mouth once daily. diclofenac (VOLTAREN) 1 % topical g (more content not included)... [facility] XR Hand - right PA and Later al and Obliqueon 03-01-2023 IMPRESSION: Findings as discussed under Results portion of report. Manager Multimedia: ALEJANDRO Transcribe Date/Time: Mar 01 2023 1:12P Dictated by : MELISSA MCARTHUR DO This examination was interpreted and the report reviewed and electronically signed by: MELISSA MCARTHUR DO on Mar 01 2023 1:13PM [facility] * * *Final Report* * * DATE OF EXAM: Feb 28 2023 9:16AM SHANDRA 5346 - XR HAND 3V PA/LAT/OBL RT / PROCEDURE REASON: [id number] * * * * Physician Interpretation * * * * EXAM(s): XR HAND 3V PA/LAT/OBL RT EXAM DATE/TIME: 02/28/2023 9:16 AM HISTORY: 67 years old Clinical information: Pain numbness and tingling has gotten worse the last month TECHNIQUE: Images: XR HAND 3V PA/LAT/OBL RT Comparison: None. RESULT: Findings: Severe narrowing of the first metacarpal carpal joint. Marked bony demineralization. There are erosive changes in the distal end of the middle phalanx of the index finger proximal end of the middle phalanx third digit distal end of the proximal phalanx of the third digit Bone density appears well-preserved. No fractures or dislocations are seen. [facility] Provider, Pankaj Hendersonsid pinto Ann Marie - 03/01/2023 * * *Final Report* * * DATE OF EXAM: Feb 28 2023 9:16AM SHANDRA 5346 - XR HAND 3V PA/LAT/OBL RT / PROCEDURE REASON: [id number] * * * * Physician Interpretation * * * * EXAM(s): XR HAND 3V PA/LAT/OBL RT EXAM DATE/TIME: 02/28/2023 9:16 AM HISTORY: 67 years old Clinical information: Pain numbness and tingling has gotten worse the last month TECHNIQUE: Images: XR HAND 3V PA/LAT/OBL RT Comparison: None. RESULT: Findings: Severe narrowing of the first metacarpal carpal joint. Marked bony demineralization. There are erosive changes in the distal end of the middle phalanx of the index finger proximal end of the middle phalanx third digit distal end of the proximal phalanx of the third digit Bone density appears well-preserved. No fractures or dislocations are seen. IMPRESSION IMPRESSION: Findings as discussed under Results portion of report. Manager Multimedia: ALEJANDRO Transcribe Date/Time: Mar 01 2023 1:12P Dictated by : MELISSA MCARTHUR DO This examination was interpreted and the report reviewed and electronically signed by: MELISSA MCARTHUR DO on Mar 01 2023 1:13PM [facility] XR Hand - right PA and Later al and ObliqueOrdered By: [facility] Provider on 03-01-2023 [facility] CNOVon 02-28-2023 CNOV Office Visit (ORMDNA ) ROBIN DELAROSA ([id number]) 1955 M Date Time Provider Department 02/28/23 9:30 AM GABRIELLE BENTON During your visit today, we recorded the following information about you: Weight Height 83.7 kg 1.784 m Gabrielle Benton PA-C 03/01/2023 1:43 PM Signed Gabrielle Benton PA-C Department of Orthopaedics Orthopaedics [address] [place] [id number] Dept: [phone] February 28, 2023 SUBJECTIVE: CHIEF COMPLAINT: New, Pain, and Numbness of the Right Hand HPI: Mr. Robin Delarosa is a 67 year old right hand dominant male. He presents today with right hand pain and numbness that has been present for years. Today he rates his pain a 2 on a scale of 0 to 10 at rest. The pain is worse with activity. He has had pain in his right thumb for years. He describes the pain as dull/achy at rest and sharp with activity. He has had intermittent numbness/tingling in his right hand digits 1-4 intermittently for the past few years. He notes over the past month his numbness has gotten significantly worse. His numbness is worse with gripping, driving, writing and at night. He takes tylenol and meloxicam for chronic back pain. 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 He has previously undergone left thumb cmc arthroplasty more than 10 years ago. Past Medical History: History reviewed. No pertinent past medical history. Past Surgical History: History reviewed. No pertinent surgical history. Family History: History reviewed. No pertinent family history. Social History: Social History Tobacco Use Smoking status: Never Smokeless tobacco: Never Medications: Current Outpatient Medications Medication Sig amLODIPine (NORVASC) 5 mg tablet Take 5 mg by mouth once daily. atenolol (TENORMIN) 25 mg tablet Take 25 mg by mouth once daily. citalopram hydrobromide (CELEXA) 10 mg tablet Take 10 mg by mouth once daily. diclofenac (VOLTAREN) 1 % topical gel Apply 2 g to affected area as needed. finasteride (PROSCAR) 5 mg tablet meloxicam (MOBIC) 15 mg tablet Take 15 mg by mouth as needed. mometasone (ELOCON) 0.1 % cream Apply 1 g to affected area as needed. omeprazole (PRILOSEC) 20 mg capsule Take 20 mg by mouth once daily. pravastatin (PRAVACHOL) 20 mg tablet Take 20 mg by mouth once daily. rizatriptan (MAXALT) 10 mg tablet Take 10 mg by mouth as needed. Terazosin HCl (HYTRIN) 10 mg capsule Take 10 mg by mouth once daily. Valsartan-hydroCHLOROt hiazide 320-12.5 mg per tablet Take 1 tablet by mouth once daily. No current facility-administered medications for this visit. Allergies: Patient has no allergy information on record. ROS: General: negative for fatigue, malaise, weight loss/gain Musculoskeletal: see HPI Psych: no depression, anxiety OBJECTIVE: Mr. Robin Delarosa is a pleasant 67 year old in no apparent distress. Gen:Ht 5' 10.25 (1.78m) Wt 184 lb 8.4 oz (83.7kg) BMI 26.30 kg/(m2). nl development, non obese, no deformities ENT: Normocephalic, normal hearing, moist mucosa CV: Pulses:Radial= 2+ and symmetric, capillary refill < 2 secs, no peripheral edema/varicosities Skin: no rash, bruising or lesions. Good turgor. Psych: cooperative and appropriate, alert and oriented x 3, good mood and affect. Musculoskeletal: RT thumb with minimal swelling at the base. mild tenderness to palpation at the dorsal capsule with minimal crepitance. Painful grind test. Good motion at the MCP and PIP, no locking or catching. MCP with hyperextension. Median, radial and ulnar nerves are intact. Non-tender first dorsal compartment with a negative Antonio's test. There is not evidence of thenar wasting. Decreased sensation on palmar aspect of digits 1-4 Phalen's: postive Tinel's: negative IMAGIN03/01/2023 1:15 PM - Radiology, Oru In Impression IMPRESSION: Findings as discussed under Results portion of report. Manager Multimedia: ALEJANDRO Transcribe Date/Time: Mar 01 2023 1:12P Dictated by : MELISSA MCARTHUR DO This examination was interpreted and the report reviewed and electronically signed by: MELISSA MCARTHUR DO on Mar 01 2023 1:13PM EST Results-Findings * * *Final Report* * * DATE OF EXAM: Feb 28 2023 9:16AM SHANDRA 5346 - XR HAND 3V PA/LAT/OBL RT / PROCEDURE REASON: [id number] * * * * Physician Interpretation * * * * EXAM(s): XR HAND 3V PA/LAT/OBL RT EXAM DATE/TIME: 02/28/2023 9:16 AM HISTORY: 67 years old Clinical information: Pain numbness and tingling has gotten worse the last month TECHNIQUE: Images: XR HAND 3V PA/LAT/OBL RT Comparison: None. RESULT: Findings: Severe narrowing of the first metacarpal carpal joint. Marked bony demineralization. There are erosive changes in the distal end of the middle phalanx of the index finger proximal end of the middle phalanx third (more content not included)... [facility] XR HAND 3V PA/LAT/OBL RTon 1 04-30-2022 XR HAND 3V PA/LAT/OBL RT * * *Final Report* * * DATE OF EXAM: Feb 28 2023 9:16AM MDO 5346 - XR HAND 3V PA/LAT/OBL RT / PROCEDURE REASON: [id number] * * * * Physician Interpretation * * * * EXAM(s): XR HAND 3V PA/LAT/OBL RT EXAM DATE/TIME: 02/28/2023 9:16 AM HISTORY: 67 years old Clinical information: Pain numbness and tingling has gotten worse the last month TECHNIQUE: Images: XR HAND 3V PA/LAT/OBL RT Comparison: None. RESULT: Findings: Severe narrowing of the first metacarpal carpal joint. Marked bony demineralization. There are erosive changes in the distal end of the middle phalanx of the index finger proximal end of the middle phalanx third digit distal end of the proximal phalanx of the third digit Bone density appears well-preserved. No fractures or dislocations are seen. IMPRESSION: Findings as discussed under Results portion of report. Manager Multimedia: ALEJANDRO Transcribe Date/Time: Mar 01 2023 1:12P Dictated by : MELISSA MCARTHUR DO This examination was interpreted and the report reviewed and electronically signed by: MELISSA MCARTHUR DO on Mar 01 2023 1:13PM EST [id number] [facility] XR Hand - right PA and Later al and Obliqueon 02-28-2023 Radiology Study observation (narrative) [facility] CNTHERAPYon 12-04-2022 CNTHERAPY OT/PT/Speech Visit (PTWS) ROBIN DELAROSA ([id number]) 1955 M Date Time Provider Department 12/04/22 12:30 PM ELVIS MONZON Date Time Provider Department [place] 12/04/2022 12:30 PM [id number] MONZON Reason for Visit: Physical Therapy [503] Primary Visit Diagnosis:Acute pain of right shoulder [M25.511] Allergies As of Date: 12/04/2022 (Not on File) Date Reviewed: Never Reviewed Normal [facility] CNTHERAPYon 11-29-2022 CNTHERAPY OT/PT/Speech Visit (PTWS) ROBIN DELAROSA ([id number]) 1955 M Date Time Provider Department 11/29/22 12:30 PM ELVIS MONZON Date Time Provider Department [place] 11/29/2022 12:30 PM [id number] LEGGETT Reason for Visit: Physical Therapy [503] Primary Visit Diagnosis:Acute pain of right shoulder [M25.511] Allergies As of Date: 11/29/2022 (Not on File) Date Reviewed: Never Reviewed Normal [facility] CNTHERAPYon 11-21-2022 CNTHERAPY OT/PT/Speech Visit (PTWS) ROBIN DELAROSA ([id number]) 1955 M Date Time Provider Department 11/21/22 1:00 PM ELVIS MONZON Date Time Provider Department [place] 11/21/2022 1:00 PM [id number] LEGGETT Reason for Visit: PT Progress Note [1596] Primary Visit Diagnosis:Acute pain of right shoulder [M25.511] Allergies As of Date: 11/21/2022 (Not on File) Date Reviewed: Never Reviewed Letter Text [facility] CNTHERAPYon 11-14-2022 CNTHERAPY OT/PT/Speech Visit (PTWS) ROBIN DELAROSA ([id number]) 1955 M Date Time Provider Department 11/14/22 1:45 PM ELVIS MONZON Date Time Provider Department Center 11/14/2022 1:45 PM [id number] MONZON Reason for Visit: Physical Therapy [503] Primary Visit Diagnosis:Acute pain of right shoulder [M25.511] Allergies As of Date: 11/14/2022 (Not on File) Date Reviewed: Never Reviewed [facility] CNTHERAPYon 11-07-2022 CNTHERAPY OT/PT/Speech Visit (PTWS) ROBIN DELAROSA ([id number]) 1955 M Date Time Provider Department 11/07/22 3:30 PM TRACI VALLE Date Time Provider Department Center 11/07/2022 3:30 PM [id number] VALLE Reason for Visit: Physical Therapy [503] Primary Visit Diagnosis:Acute pain of right shoulder [M25.511] Allergies As of Date: 11/07/2022 (Not on File) Date Reviewed: Never Reviewed [facility] CNTHERAPYon 11-01-2022 CNTHERAPY OT/PT/Speech Visit (PTWS) ROBIN DELAROSA ([id number]) 1955 M Date Time Provider Department 11/01/22 8:00 AM TRACI VALLE Date Time Provider Department [place] 11/01/2022 8:00 AM [id number] VALLE Reason for Visit: Physical Therapy [503] Primary Visit Diagnosis:Acute pain of right shoulder [M25.511] Allergies As of Date: 11/01/2022 (Not on File) Date Reviewed: Never Reviewed [facility] CNTHERAPYon 10-22-2022 CNTHERAPY OT/PT/Speech Visit (PTWS) ROBIN DELAROSA ([id number]) 1955 M Date Time Provider Department 10/22/22 12:15 PM ELVIS MONZON Date Time Provider Department Center 10/22/2022 12:15 PM [id number] MONZON Reason for Visit: PT Progress Note [1596] Primary Visit Diagnosis:Acute pain of right shoulder [M25.511] Allergies As of Date: 10/22/2022 (Not on File) Date Reviewed: Never Reviewed [facility] CNTHERAPYon 10-16-2022 CNTHERAPY OT/PT/Speech Visit (PTWS) ROBIN DELAROSA ([id number]) 1955 M Date Time Provider Department 10/16/22 4:30 PM ELVIS MONZON Date Time Provider Department Center 10/16/2022 4:30 PM [id number] MONZON Reason for Visit: Physical Therapy [503] Primary Visit Diagnosis:Acute pain of right shoulder [M25.511] Allergies As of Date: 10/16/2022 (Not on File) Date Reviewed: Never Reviewed [facility] CNTHERAPYon 10-09-2022 CNTHERAPY OT/PT/Speech Visit (PTWS) ROBIN DELAROSA ([id number]) 1955 M Date Time Provider Department 10/09/22 4:30 PM ELVIS MONZON Date Time Provider Department Center 10/09/2022 4:30 PM [id number] ORO Reason for Visit: Physical Therapy [503] Primary Visit Diagnosis:Acute pain of right shoulder [M25.511] Allergies As of Date: 10/09/2022 (Not on File) Date Reviewed: Never Reviewed [facility] CNTHERAPYon 10-05-2022 CNTHERAPY OT/PT/Speech Visit (PTWS) ROBIN DELAROSA ([id number]) 1955 M Date Time Provider Department 10/05/22 9:45 AM ELVIS MONZON Date Time Provider Department Center 10/05/2022 9:45 AM [id number] ORO Reason for Visit: Physical Therapy [503] Primary Visit Diagnosis:Acute pain of right shoulder [M25.511] Allergies As of Date: 10/05/2022 (Not on File) Date Reviewed: Never Reviewed [facility] CNTHERAPYon 09-27-2022 CNTHERAPY OT/PT/Speech Visit (PTWS) ROBIN DELAROSA ([id number]) 1955 Date Time Provider Department 09/27/22 11:30 AM ELVIS MONZON Date Time Provider Department Center 09/27/2022 11:30 AM [id number] MONZON Reason for Visit: PT Eval [747] Primary Visit Diagnosis:Acute pain of right shoulder [M25.511] Allergies As of Date: 09/27/2022 (Not on File) Date Reviewed: Never Reviewed Letter Text [facility] XR Shoulder - right 2 Viewso n 09-07-2022 No acute process. Report Dictated on Electronically Signed By: Nathan Mancilla Electronically Signed Date/Time: 09/07/2022 4:16 PM EDT [facility] Patient Name: ROBIN MANZANARES : 1955 Exam Date/Time: 09/06/2022 15:27 Procedure: XR SHOULDER 2+ VIEWS RIGHT Ordering Provider: MADRID MATTHEW Reason For Exam: m50.30 RIGHT SHOULDER, 3 VIEWS: INDICATION: Right shoulder pain COMPARISON: No previous studies are available for comparison. Grashey, axillary and Y views of the right shoulder were obtained. Bone density appears normal. No fracture or dislocation is noted. The joint spaces are within normal limits. A soft tissue calcification is seen superior to the humeral head which may reflect calcific tendinitis. The right lung apex is clear. [facility] Nathan Mancilla DO - 09/07/2022 Patient Name: ROBIN DELAROSA : 1955 Exam Date/Time: 09/06/2022 15:27 Procedure: XR SHOULDER 2+ VIEWS RIGHT Ordering Provider: MADRID MATTHEW Reason For Exam: m50.30 RIGHT SHOULDER, 3 VIEWS: INDICATION: Right shoulder pain COMPARISON: No previous studies are available for comparison. Grashey, axillary and Y views of the right shoulder were obtained. Bone density appears normal. No fracture or dislocation is noted. The joint spaces are within normal limits. A soft tissue calcification is seen superior to the humeral head which may reflect calcific tendinitis. The right lung apex is clear. IMPRESSION: No acute process. Report Dictated on Electronically Signed By: Nathan Mancilla Electronically Signed Date/Time: 09/07/2022 4:16 PM EDT [place] XR Shoulder - right 2 ViewsO rdered By: Nathan Mancilla on 09-07-2022 [place] Work Phone: XR Shoulder - right 2 Viewso n 09-06-2022 Radiology Study observation (narrative) [place] No Panel Informationon 08-07 Prostate Specific Antigen Screen 5.48 ng/mL 0.00-4.00 [facility] Comment on above: This test was perfor med using the TPSA assay method for [employer] chemistry system. Values obtained with differentassay methods cannot be used interchangably.When changing PSA assays in the course of monitoring apatient, additional sequential testing should be carriedout to confirm baseline values. VL Aorta Iliac Duplexon 12-28 VL Aorta Iliac Duplex Patient Name: ROBIN DELAROSA Ultrasound ACCESSION EXAM DATE/TIME PROCEDURE ORDERING PROVIDER [id number] 01/10/2021 10:22 EDT VL Aorta Iliac Duplex MD CHRISTIANA, ESSIE FERGUSON CPT code 20668 Reason For Exam (VL Aorta Iliac Duplex) generalized abdominal pain Report [facility] ----- Abdominal Aortic Duplex Report Patient Heather : 1955 Study 01/10/2021 Name: Robin (65yrs) Date: Age: 65 Account: [id number] Gender: M Loc: BP: Ordering Physician: Essie Madrid Commercial Journeyman Electrician: Thomas Haley RDMS, RVT Interpreting Physician: Christa Yung MD ----- Location: [facility] ----- Indications: Abdomen pain. Back pain. ----- Conclusions 1. Study is negative for aneurysm and stenosis involving the abdominal aorta. 2. Study is negative for aneurysm and stenosis involving the right common iliac artery. 3. Study is negative for aneurysm and stenosis involving the left common iliac artery. ----- History: Risk factors: Hypertension. Age over 65 years. ----- Study data: Abdominal aorta duplex. Duplex scan, grayscale 2D imaging, color Doppler imaging, and spectral Doppler analysis. Location: Vascular laboratory. Procedure: A vascular evaluation was performed with the patient in the supine position. Images were obtained using a FLENS E9 vascular ultrasound machine. The study was technically limited due to bowel gas. Ultrasound Report ----- Arterial flow: + -+ +------- ------+ +--- ----+ +Location +Diameter +Diameter Tr+PSV(cm/sec)+Comme nt+ + +AP + + + + + -+ +------- ------+ +--- ----+ +Suprarenal aorta , +2.51 cm +2.53 +41 +-------+ +prox + + + + + + -+ +------- ------+ +--- ----+ +Abdominal aorta , mid +2.03 cm +2.12 +62 +Gas. + + -+ +------- ------+ +--- ----+ +Abdominal aorta , +1.98 cm +2.11 +86 +-------+ +distal + + + + + + -+ +------- ------+ +--- ----+ +R SERVANDO , distal +1.34 cm +1.40 +68 +-------+ + -+ +------- ------+ +--- ----+ +L SERVANDO , distal +1.41 cm +1.32 +95 +-------+ + -+ +------- ------+ +--- ----+ Prepared and electronically signed by Christa Yung MD 01/10/2021 11:56 Final Dictated: 01/10/2021 11:56 am Dictating Physician: CHRISTA YUNG Signed Date and Time: 01/10/2021 11:56 am Signed by: CHRISTA YUNG Cardiovascular ACCESSION EXAM DATE/TIME PROCEDURE [id number] 01/10/2021 10:22 EDT VL Aorta Iliac Duplex CPT code 21564 Reason For Exam (VL Aorta Iliac Duplex) generalized abdominal pain Report [facility] ----- Abdominal Aortic Duplex Report Patient DO HeatherB: 1955 Study 01/10/2021 Name: Robin (65yrs) Date: Age: 65 Account: [id number] Gender: M Loc: BP: Ordering Physician: Essie Madrid Commercial Journeyman Electrician: Thomas Haley RDMS, RVT Interpreting Physician: Christa Yung MD ----- Cardiovascular Report Location: [facility] ----- Indications: Abdomen pain. Back pain. ----- Conclusions 1. Study is negative for aneurysm and stenosis involving the abdominal aorta. 2. Study is negative for aneurysm and stenosis involving the right common iliac artery. 3. Study is negative for aneurysm and stenosis involving the left common iliac artery. ----- History: Risk factors: Hypertension. Age over 65 years. ----- Study data: Abdominal aorta duplex. Duplex scan, grayscale 2D imaging, color Doppler imaging, and spectral Doppler analysis. Location: Vascular laboratory. Procedure: A vascular evaluation was performed with the patient in the supine position. Images were obtained using a FLENS E9 vascular ultrasound machine. The study was technically limi (more content not included)... Normal [facility] US Duplex Aorta IVC Iliac CompleteOrdered By: Essie Madrid on 01-10-2021 [facility] ----- Abdominal Aortic Duplex Report Patient Heather HENRY: 1955 Study 01/10/2021 Name: Robin (65yrs) Date: Age: 65 Account: [id number] Gender: M Loc: BP: Ordering Physician: Essie Madrid Commercial Journeyman Electrician: Thomas Haley RDMS, RVT Interpreting Physician: Christa Yung MD ----- Location: [facility] ----- Indications: Abdomen pain. Back pain. ----- Conclusions 1. Study is negative for aneurysm and stenosis involving the abdominal aorta. 2. Study is negative for aneurysm and stenosis involving the right common iliac artery. 3. Study is negative for aneurysm and stenosis involving the left common iliac artery. ----- History: Risk factors: Hypertension. Age over 65 years. ----- Study data: Abdominal aorta duplex. Duplex scan, grayscale 2D imaging, color Doppler imaging, and spectral Doppler analysis. Location: Vascular laboratory. Procedure: A vascular evaluation was performed with the patient in the supine position. Images were obtained using a FLENS E9 vascular ultrasound machine. The study was technically limited due to bowel gas. ----- Arterial flow: + -+ +------- ------+ +--- ----+ +Location +Diameter +Diameter Tr+PSV(cm/sec)+Comme nt+ + +AP + + + + + -+ +------- ------+ +--- ----+ +Suprarenal aorta , +2.51 cm +2.53 +41 +-------+ +prox + + + + + + -+ +------- ------+ +--- ----+ +Abdominal aorta , mid +2.03 cm +2.12 +62 +Gas. + + -+ +------- ------+ +--- ----+ +Abdominal aorta , +1.98 cm +2.11 +86 +-------+ +distal + + + + + + -+ +------- ------+ +--- ----+ +R SERVANDO , distal +1.34 cm +1.40 +68 +-------+ + -+ +------- ------+ +--- ----+ +L SERVANDO , distal +1.41 cm +1.32 +95 +-------+ + -+ +------- ------+ +--- ----+ Prepared and electronically signed by Christa Yung MD 01/10/2021 11:56 [employer] Work Phone: [facility], [facility] Incoming Cardiology Results From Tamie/Zoila - 01/10/2021 11:56 AM EDT [facility] ----- Abdominal Aortic Duplex Report Patient Heather : 1955 Study 01/10/2021 Name: Robin (65yrs) Date: Age: 65 Account: [id number] Gender: M Loc: BP: Ordering Physician: Essie Madrid Commercial Journeyman Electrician: Thomas Haley RDMS, T Interpreting Physician: Christa Yung MD ----- Location: [facility] ----- Indications: Abdomen pain. Back pain. ----- Conclusions 1. Study is negative for aneurysm and stenosis involving the abdominal aorta. 2. Study is negative for aneurysm and stenosis involving the right common iliac artery. 3. Study is negative for aneurysm and stenosis involving the left common iliac artery. ----- History: Risk factors: Hypertension. Age over 65 years. ----- Study data: Abdominal aorta duplex. Duplex scan, grayscale 2D imaging, color Doppler imaging, and spectral Doppler analysis. Location: Vascular laboratory. Procedure: A vascular evaluation was performed with the patient in the supine position. Images were obtained using a FLENS E9 vascular ultrasound machine. The study was technically limited due to bowel gas. ----- Arterial flow: + -+ +------- ------+ +--- ----+ +Location +Diameter +Diameter Tr+PSV(cm/sec)+Comme nt+ + +AP + + + + + -+ +------- ------+ +--- ----+ +Suprarenal aorta , +2.51 cm +2.53 +41 +-------+ +prox + + + + + + -+ +------- ------+ +--- ----+ +Abdominal aorta , mid +2.03 cm +2.12 +62 +Gas. + + -+ +------- ------+ +--- ----+ +Abdominal aorta , +1.98 cm +2.11 +86 +-------+ +distal + + + + + + -+ +------- ------+ +--- ----+ +R SERVANDO , distal +1.34 cm +1.40 +68 +-------+ + -+ +------- ------+ +--- ----+ +L SERVANDO , distal +1.41 cm +1.32 +95 +-------+ + -+ +------- ------+ +--- ----+ Prepared and electronically signed by Christa Yung MD 01/10/2021 11:56 [email or web address] Work Phone: [employer] Work Phone: MRI MP Pelvis w/ + w/o Rosemarie whitten 03-13-2019 MRI MP Pelvis w/ + w/o Contrast Patient Name: ROBIN DELAROSA MRI Exam Date/Time 03/12/2019 14:48:27 EST Exam MRI MP Pelvis w/ + w/o Contrast Ordering Physician JESSI GUERRERO ANGELA SUZANNE Accession Number [id number] CPT4 Codes 32868 (), 03912 () Reason For Exam elevated psa, hx of negative prostate bx Report EXAM TYPE: MRI MP Pelvis w/ + w/o Contrast EXAM DATE AND TIME: 03/12/2019 2:48 PM EST INDICATION: 63 years Male with elevated PSA. Remote history of benign prostate biopsy COMPARISON: None TECHNIQUE: Multiplanar MRI of the pelvic was obtained with multiparametric analysis. 16 mL of gadolinium based contrast agent Multihance were administered intravenously without immediate complications. The study was also processed on the [employer] MOD application. FINDINGS: Prostate: The prostate measures 6.4 x 5.2 x 6.0 cm in [id number], anterior-posterior and craniocaudal dimensions. Prostate volume of approximately 97 mL (based on post-processed gland segmentation using [employer] software). There is hypertrophy of the transition zone. In the left anterior transition zone of the prostate base, a nodule is identified. This measures 0.9 x 0.7 cm. The nodule demonstrates heterogenously hypointense signal on T2-weighted images, low signal on the ADC map but isointense signal on the diffusion-weighted images, and no abnormal enhancement. This is consistent with a PI-RADS 3 lesion. In the left posterior transition zone of the prostate midgland, a nodule is identified. This measures 1.0 x 0.7 cm. The nodule demonstrates heterogenously hypointense signal on T2-weighted images, no restricted diffusion, and no abnormal enhancement. This is consistent with a PI-RADS 3 lesion. There is a small rounded area of hyperintense signal on the precontrast T1-weighted images in the right anterior transition zone at the base of the prostate which could be due to prior biopsy. This does not have suspicious features of hypointense signal on T2-weighted images, restricted diffusion or abnormal enhancement. EXTRACAPSULAR EXTENSION: No extracapsular extension. SEMINAL VESICLES: The seminal vesicles are unremarkable. PELVIC LYMPH NODES: No abnormally enlarged pelvic lymph nodes. PERITONEUM: No free or loculated fluid collections in the pelvis. OTHER ORGANS: The urinary bladder appears normal. The visualized bowel appears normal. BONES: The visualized osseous structures are unremarkable aside from a perineural cyst at S2. IMPRESSION: 1. PI-RADS 3 lesions in the left anterior base and left posterior mid gland. 2. Prostatomegaly and transition zone hypertrophy. Report Dictated on Workstation: [id number] Final Dictated: 03/13/2019 7:58 am Dictating Physician: MD GUEVARA NICHOLAS Signed Date and Time: 03/13/2019 8:12 am Signed by: MD GUEVARA NICHOLAS Transcribed Date and Time: 03/13/2019 7:58 Normal [facility] Vital Signs Date Time Vital Sign Value Performing Clinician Alessiorik santillan 08-24-2024 11:31-0400 Diastolic blood pressure 79 mm[Hg] Shyann Gupta WEB MARKETING INTERN - SLIP COVER SEAMSTRESS Work Phone: [facility] 08-24-2024 11:31-0400 Heart rate 51 /min Shyann Gupta WEB MARKETING INTERN - SLIP COVER SEAMSTRESS Work Phone: [facility] 08-24-2024 11:31-0400 Systolic blood pressure 139 mm[Hg] Shyann Gupta WEB MARKETING INTERN - SLIP COVER SEAMSTRESS Work Phone: [facility] 08-24-2024 11:22-0400 Body height 180.3 cm Shyann Gupta WEB MARKETING INTERN - SLIP COVER SEAMSTRESS Work Phone: [facility] 08-24-2024 11:22-0400 Body mass index (BMI) [Ratio] 25.1 kg/m2 Shyann Gupta WEB MARKETING INTERN - SLIP COVER SEAMSTRESS Work Phone: [facility] 08-24-2024 11:22-0400 Body weight 81.65 kg Shyann Gupta WEB MARKETING INTERN - SLIP COVER SEAMSTRESS Work Phone: [facility] 08-20-2023 10:53-0400 Body height 180.3 cm Kori ACEVEDO RN - SLIDER ASSEMBLER Work Phone: [facility] 08-20-2023 10:53-0400 Body mass index (BMI) [Ratio] 25.1 kg/m2 Kori Celestin WEB MARKETING INTERN - SLIDER ASSEMBLER Work Phone: [facility] 08-20-2023 10:53-0400 Body weight 81.65 kg Kori ACEVEDO RN - SLIDER ASSEMBLER Work Phone: [facility] 08-20-2023 10:53-0400 Diastolic blood pressure 68 mm[Hg] Kori Celestin APRN - SLIDER ASSEMBLER Work Phone: [facility] 08-20-2023 10:53-0400 Heart rate 55 /min Kori ACEVEDO RN - SLIDER ASSEMBLER Work Phone: [facility] 08-20-2023 10:53-0400 Systolic blood pressure 121 mm[Hg] Kori Celestin APRN - SLIDER ASSEMBLER Work Phone: [facility] 02-28-2023 09:20-0400 Body height 178.4 cm Gabrielle AsaCirroi PA-C Work Phone: [facility] 02-28-2023 [id number] Body weight 83.7 kg Gabrielle BrayCirroi PA-C Work Phone: [facility] Encounters Encounter Date Encounter Type Care Provider Facility Start: 08-24-2024 End: 08-24-2024 Office outpatient visit 15 minutes Shyann Burton Alexa WEB MARKETING INTERN - SLIP COVER SEAMSTRESS Work Phone: [facility] [place] Comment on above: Benign prostatic hyp erplasia without lower urinary tract symptoms (Primary Dx); Elevated PSA; Rising PSA level Start: 08-24-2024 End: 08-24-2024 ambulatory [facility] Start: 08-17-2024 End: 08-17-2024 ambulatory MARYELLEN EAGLE Facility:[facility] Start: 03-23-2024 End: 03-23-2024 ambulatory [facility] Facility:[facility] Start: 11-08-2023 End: 02-07-2024 Transcribe Orders Angie Ybarra WEB MARKETING INTERN - SLIP COVER SEAMSTRESS Work Phone: [facility] Comment on above: Anemia, unspecified (Primary Dx) Start: 11-03-2023 End: 11-03-2023 Emergency department patient visit [facility] Facility:[facility] Start: 09-10-2023 End: 09-10-2023 ambulatory [facility] Facility:[facility] Start: 08-20-2023 End: 08-20-2023 Office outpatient visit 15 minutes Kori Celestin APRN - SLIDER ASSEMBLER Work Phone: [facility] Comment on above: Benign prostatic hyp erplasia with urinary frequency (Primary Dx); Elevated PSA; History of needle biopsy of prostate with negative result; Prostate cancer screening Start: 08-12-2023 End: 08-12-2023 ambulatory [facility] Work Phone: Start: 08-12-2023 End: 08-12-2023 Patient encounter procedure [facility] [place] Work Phone: Start: 07-22-2023 End: 07-22-2023 ambulatory ESSIE MADRID Facility:[facility] Start: 07-22-2023 End: 07-22-2023 Patient encounter procedure Gisell Emanuel PA-C Work Phone: Orthopaedics Comment on above: 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 (Primary Dx); Postoperative stitch abscess Start: 06-25-2023 End: 06-25-2023 ambulatory GISELL EMANUEL Facility:[facility] Start: 06-25-2023 End: 06-25-2023 ambulatory Chen Funez OT/L Work Phone: [facility] Comment on above: 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 (Primary Dx) Start: 06-18-2023 End: 06-18-2023 ambulatory Chen Funez OT/L Work Phone: [facility] Comment on above: 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 (Primary Dx) Start: 06-11-2023 End: 06-11-2023 ambulatory UNKNOWN PROVIDER Facility:[facility] Start: 06-11-2023 End: 06-11-2023 Patient encounter procedure John Fry MD Work Phone: Orthopaedics Comment on above: 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 (Primary Dx) Start: 06-11-2023 End: 06-11-2023 Subsequent hospital visit by physician Radio [facility] Work Phone: Radiology Comment on above: 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 [M18.11] Start: 06-04-2023 End: 06-04-2023 ambulatory GISELL BERNARDOSHA Facility:[facility] Start: 06-04-2023 End: 06-04-2023 ambulatory Chen Funez OT/L Work Phone: [facility]ational Therapy Comment on above: 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 (Primary Dx) Start: 05-28-2023 End: 05-28-2023 ambulatory GISELL BERNARDOSHA Facility:[facility] Start: 05-15-2023 End: 05-15-2023 ambulatory UNKNOWN PROVIDER Facility:[facility] Start: 05-01-2023 End: 05-02-2023 ambulatory ESSIE MADRID Facility:[facility] Start: 05-01-2023 Encounter for other preprocedural examination ESSIE MADRID [facility] Start: 04-01-2023 End: 04-01-2023 ambulatory JOHN FRY Facility:[facility] Start: 03-08-2023 End: 03-08-2023 ambulatory GABRIELLE BENTON Facility:[facility] Start: 02-28-2023 End: 02-28-2023 ambulatory GABRIELLE BENTON Facility:[facility] Start: 02-28-2023 End: 02-28-2023 Patient encounter procedure Gabrielel Benton PA-C Work Phone: Orthopaedics Comment on above: [facility] arthritis (Prima ry Dx); Disturbance of skin sensation Start: 02-28-2023 End: 02-28-2023 Subsequent hospital visit by physician Radio General [facility] Work Phone: Radiology Comment on above: Pain [R52] Start: 02-15-2023 Orders Only Gabrielle Reg otti PA-C Work Phone: [facility] Comment on above: Pain (Primary Dx) Start: 12-04-2022 End: 12-05-2022 ambulatory ELVIS MONZON Facility:[facility] Start: 12-04-2022 End: 12-05-2022 ambulatory Elvis Quan [facility] Physical Therapy Comment on above: Acute pain of right shoulder (Primary Dx) Start: 11-29-2022 End: 11-30-2022 ambulatory ELVIS MONZON Facility:[facility] Start: 11-29-2022 End: 11-30-2022 ambulatory Elvis Monzon PT [facility] Physical Therapy Comment on above: Acute pain of right shoulder (Primary Dx) Start: 11-21-2022 End: 11-21-2022 ambulatory Elvis Monzon PT [facility] Physical Therapy Comment on above: Acute pain of right shoulder (Primary Dx) Start: 11-14-2022 End: 11-14-2022 ambulatory ESSIE MADRID Facility:[facility] Start: 11-14-2022 End: 11-14-2022 ambulatory Elvis Monzon PT [facility] Physical Therapy Comment on above: Acute pain of right shoulder (Primary Dx) Start: 11-07-2022 End: 11-07-2022 ambulatory ESSIE MADRID Facility:[facility] Start: 11-07-2022 End: 11-07-2022 ambulatory Traci Parsonsrosalina POLYSOMNOGRAPHY TECHNICIAN Work Phone: [facility] Comment on above: Acute pain of right shoulder (Primary Dx) Start: 11-01-2022 End: 11-01-2022 ambulatory Traci Parsonsernestinaba POLYSOMNOGRAPHY TECHNICIAN Work Phone: [facility] Comment on above: Acute pain of right shoulder (Primary Dx) Start: 10-22-2022 End: 10-22-2022 ambulatory ELVIS MONZON Facility:[facility] Start: 10-22-2022 End: 10-22-2022 ambulatory Elvis Monzon PT [facility] Comment on above: Acute pain of right shoulder (Primary Dx) Start: 10-16-2022 End: 10-16-2022 ambulatory ELVIS MONZON Facility:[facility] Start: 10-16-2022 End: 10-16-2022 ambulatory Elvis Monzon PT [facility] Comment on above: Acute pain of right shoulder (Primary Dx) Start: 10-09-2022 End: 10-10-2022 ambulatory ELVIS MONZON Facility:[facility] Start: 10-09-2022 End: 10-10-2022 ambulatory Elvis Monzon PT [facility] Comment on above: Acute pain of right shoulder (Primary Dx) Start: 10-05-2022 End: 10-05-2022 ambulatory ELVIS MONZON Facility:[facility] Start: 09-27-2022 End: 09-27-2022 ambulatory ELVIS MONZON Facility:[facility] Start: 09-27-2022 End: 09-27-2022 ambulatory Elvis Monzon PT [facility] Comment on above: Acute pain of right shoulder (Primary Dx) Start: 09-06-2022 End: 09-06-2022 Subsequent hospital visit by physician Essie Madrid MD Work Phone: [facility] Radiology Comment on above: Other cervical disc degeneration, unspecified cervical region; Pain in right shoulder Other cervical disc degeneration, unspecified cervical region (Primary Dx); Pain in right shoulder Start: 08-07-2022 End: 08-07-2022 ambulatory [facility] Work Phone: Start: 08-07-2022 End: 08-07-2022 Patient encounter procedure [facility] [place] Start: 01-10-2021 End: 01-10-2021 Subsequent hospital visit by physician Essie Madrid MD Work Phone: [id number] Vascular Lab Comment on above: Arrived Start: 03-12-2019 End: 03-12-2019 Subsequent hospital visit by physician Iram Guerrero Work Phone: [facility] MRI Comment on above: Elevated PSA, less t hernandez 10 ng/ml Start: 05-29-2018 Patient encounter procedure Essie Madrid [facility] Procedures Date Procedure Procedure Detail Performing Clinician Start: 06-11-2023 Radex hand minimum 3 views John Fry MD Work Phone: Start: 02-28-2023 Radex hand minimum 3 views Gabrielle Benton PA-C Work Phone: Start: 01-10-2021 VL US DUPLEX AORTA I VC ILIAC COMPLETE Essie Madrid MD Work Phone: Plan of Treatment Date Care Activity Detail Author Start: 2030 RSV Immunization for Adults (1 - 1-dose 75+ series) RSV Immunization for Adults (1 - 1-dose 75+ series) [facility] Start: 12-28-2024 Influenza vaccination Influenz a Vaccine (Season Ended) [facility] Start: 10-27-2024 End: 10-27-2024 Patient encounter procedure 10/27/2024 11:30 AM EDT Office Visit [facility] - [place] [address] [place] [id number] Zina Gilliam, WEB MARKETING INTERN - [employer] [address] [place] [address] [facility] [place] Start: 09-23-2024 End: 02-23-2025 PSA, total and free PSA, total and free Lab Routine Elevated PSA Rising PSA level Expected: 09/23/2024 (Approximate), Expires: 02/23/2025 [facility] Work Phone: Comment on above: Expected: 09/23/2024 (Approximate), Expires: 02/23/2025 Start: 08-24-2024 End: 08-24-2024 Patient encounter procedure [facility] Start: 08-03-2024 End: 08-19-2024 PSA screening PSA Screening Lab Routine Elevated PSA History of needle biopsy of prostate with negative result Prostate cancer screening Expected: 08/03/2024 (Approximate), Expires: 08/19/2024 [facility] Work Phone: Comment on above: Expected: 08/03/2024 (Approximate), Expires: 08/19/2024 Start: 12-29-2023 COVID-19 Vaccine ( season) COVID-19 Vaccine ( season) [facility] Start: 12-29-2023 COVID-19 Vaccine ( season) COVID-19 Vaccine ( season) [facility] Start: 12-29-2023 Covid-19 Vaccine ( season) Covid-19 Vaccine ( season) [facility] Start: 12-29-2023 Influenza vaccination S [facility] Start: 08-20-2023 End: 08-20-2023 Patient encounter procedure [facility] Start: 04-29-2023 Advance Directive Discussion Advance Directive Discussion [facility] Start: 12-28-2022 Covid-19 Vaccine ( season) Covid-19 Vaccine ( season) [facility] Start: 12-28-[address] [facility] Start: 05-05-2022 COVID-19 VACCINE (5 - Pfizer series) COVID-19 VACCINE (5 - Pfizer series) [facility] Start: 04-29-2022 ADVANCE DIRECTIVE DISCUSSION ADVANCE DIRECTIVE DISCUSSION [facility] Start: 04-29-2022 DEPRESSION ASSESSMENT DEPRESSION ASS ESSMENT [facility] Start: 02-09-2021 End: 02-09-2021 Patient encounter procedure 02/09/2021 Office Visit Urology Isaiah Ambriz MD [address] [place] [address]. [address] [place] [address] [phone] [facility] [place] Start: 12-28-2020 Influenza vaccination Flu vaccine (# 1) [facility] Work Phone: Start: 12-15-2020 Annual Wellness Visi t (AWV) Annual Wellness Visit (AWV) [facility] Work Phone: Start: 2020 Pneumococcal 65+ yea rs Vaccine (2 of 2 - PPSV23) Pneumococcal 65+ years Vaccine (2 of 2 - PPSV23) [facility] Work Phone: Start: 2020 PNEUMOCOCCAL: 65+ (1 - PCV) PNEUMOCOCCAL: 65+ (1 - PCV) [facility] Start: 12-28-2018 Influenza vaccination Flu vaccine (# 1) [place], [place] Start: 02-20-2017 DTaP/Tdap/Td vaccine (2 - Td or Tdap) DTaP/Tdap/Td vaccine (2 - Td or Tdap) [facility] Work Phone: Start: 02-20-2017 DTaP/Tdap/Td vaccine (2 - Td) DTaP/Tdap/Td vaccine (2 - Td) [place] Start: 02-20-2017 DTaP/Tdap/Td Vaccine s (2 - Td or Tdap) DTaP/Tdap/Td Vaccines (2 - Td or Tdap) [facility] Start: 02-20-2017 Urine microalbumin profile DTaP,Tdap,Td Vaccine (2 - Td or Tdap) [facility] Start: 2015 RSV Immunization age d 60 or older (1 - 1-dose 60+ series) RSV Immunization aged 60 or older (1 - 1-dose 60+ series) [facility] Start: 2015 RSV Vaccine (1 - 1-d ose 60+ series) RSV Vaccine (1 - 1-dose 60+ series) [facility] Start: 2010 PROSTATE CANCER SCREENING DISCUSSION PROSTATE CANCER SCREENING DISCUSSION [facility] Start: 2010 Prostate specific antigen measurement Prostate Cancer Screening Discussion [facility] Start: 08-22-2007 Hepatitis B Vaccines (3 of 3 - 19+ 3-dose series) Hepatitis B Vaccines (3 of 3 - 19+ 3-dose series) [facility] Start: 06-12-2007 Hepatitis B Vaccines (3 of 3 - 3-dose series) Hepatitis B Vaccines (3 of 3 - 3-dose series) [facility] Start: 2005 Colon cancer screen colonoscopy Colon cancer screen colonoscopy [place], [place] Start: 2005 Shingles Vaccine (1 of 2) Shingles Vaccine (1 of 2) [place] Start: 2005 SHINGRIX VACCINE (1 of 2) SHINGRIX VACCINE (1 of 2) [facility] Start: 2000 COLOGUARD (FIT-DNA) COLOGUARD (FIT-D NA) [facility] Start: 2000 Colonoscopy COLONOSCOPY [facility] Start: 2000 COLORECTAL CANCER SCREENING COLORECTAL CANCER SCREENING [facility] Start: [address]GR[address] [facility] Start: 2000 DIABETES SCREEN DIABETES SCREEN [facility] Start: 2000 Diabetes Screening Diabetes Screenin g [facility] Start: 2000 FECAL OCCULT BLOOD FECAL OCCULT BLOO D [facility] Start: 2000 Screening for malign ant neoplasm of colon [facility] Start: 2000 SIGMOIDOSCOPY SIGMOIDOSCOPY [facility] Start: 1995 Diabetes screen Diabetes screen [place], [place] Start: 1990 Lipid 1996 panel - S reji or Plasma Lipid Screening [facility] Start: 1990 Lipid panel Lipid Screening [facility] Start: 1990 LIPID SCREEN LIPID SCREEN [facility] Start: 1974 Urine microalbumin profile DTAP,TDAP,TD (1 - Tdap) [facility] Start: 1973 Annual PCP Team Director Of Managed Services ydlan Disease Visit Annual PCP Team Chronic Disease Visit [facility] Start: 1973 BP Controlled (<130/80) BP Controlle d (<130/80) [facility] Start: 1973 Diabetes mellitus screening Diabetes Screening [facility] Start: 1973 Hepatitis C screening Hepatitis C [facility] Start: 1973 HEPATITIS [facility]ING [facility] Start: 1970 HIV screen HIV screen [place], [place] Start: 1970 HIV screening HIV screen [facility] Work Phone: Start: 1967 Depression Monitoring Depression [facility] Start: 1967 Depression Screening Depression Scre ening [facility] Start: 1965 Lipid panel Lipid screen [facility] Work Phone: Start: 1965 Lipid screen Lipid screen [place], [place] Start: 1955 Creatinine measurement Creatinine mo nitoring [facility] Work Phone: Start: 1955 Creatinine monitoring Creatinine mon [place], [place] Start: 1955 Hepatitis C screen Hepatitis C scree n [place], [place] Start: 1955 Hepatitis C screening Hepatitis C sc reen [facility] Work Phone: Start: 1955 Lipid panel Lipid Panel [facility] Start: 1955 Medicare Annual Well ness (AWV) Medicare Annual Wellness (AWV) [facility] Start: 1955 Potassium monitoring Potassium monit oring [place], [place] Start: 1955 Screening for malign ant neoplasm of colon [facility] End: 02-29-2024 EMG(NEURO/NI) EMG(NEURO/NI) EMG Routine Disturbance of skin sensation 1 Occurrences starting 02/28/2023 until 02/29/2024 [facility] Work Phone: Comment on above: 1 Occurrences starti ng 02/28/2023 until 02/29/2024 End: 03-12-2019 MRI PELVIS W WO CONTRAST MRI PELVIS W WO CONTRAST Imaging Routine Elevated PSA, less than 10 ng/ml 1 Occurrences starting 03/12/2019 until 03/12/2019 [facility] [place] Comment on above: 1 Occurrences starti ng 03/12/2019 until 03/12/2019 OUTSIDE PROCEDURE SCAN OUTSIDE P ROCEDURE SCAN Procedures Ordered: 09/06/2022 [facility] Comment on above: Ordered: 09/06/2022 OUTSIDE PROCEDURE SCAN OUTSIDE P ROCEDURE SCAN Procedures Ordered: 11/08/2023 [facility] Comment on above: Ordered: 11/08/2023 End: 03-16-2024 XR HAND GENERAL 3V PA/LAT/OBL RIGHT XR HAND GENERAL 3V PA/LAT/OBL RIGHT Radiology Routine Pain 1 Occurrences starting 02/15/2023 until 03/16/2024 [facility] Work Phone: Comment on above: 1 Occurrences starti ng 02/15/2023 until 03/16/2024 End: 09-06-2022 XR Shoulder - right 2 Views [facility] Work Phone: Comment on above: Once for 1 Occurrenc es starting 09/06/2022 until 09/06/2022 [facility] Immunizations Immunization Date Immunization Notes Care Provider Maximiliano lucero 01-14-2023 influenza virus vacc ine, unspecified formulation [employer] Work Phone: [facility] 01-03-2022 influenza virus vacc ine, unspecified formulation Essie Madrid MD Work Phone: [facility] 02-09-2021 Pfizer SARS-CoV-2 Vaccination Essie Madrid MD Work Phone: [facility] 07-31-2020 Pfizer SARS-CoV-2 Vaccination Essie Madrid MD Work Phone: [facility] 07-09-2020 Pfizer SARS-CoV-2 Vaccination Essie Madrid MD Work Phone: [facility] Payers Date Payer Category Payer Self-pay [id number] 2022 Medicare supplementa l policy (as second payer) [employer] [id number] 2022 Private Health Insurance [facility] AARP SUPPLEMENT [id number] 2022-Present [phone] [address] [place] [address] Indemnity [id number] 2022 Unknown 2022 Unknown [id number] 2020 Medicare [id number] 2020 Medicare [id number] 2016 Unknown [employer] [facility] xxxxxxxxx 2016-Present [phone] [address] [place] [address] xxxxxxxxx [id number] 2016 Unknown [id number] 1955 Unknown [id number] Unknown [id number] Unknown [id number] Unknown [id number] Unknown [id number] Social History Date Type Detail Facility Start: 02-26-2019 End: 02-28-2023 Tobacco smoking status NHIS Never smoker [place] Start: 02-26-2019 End: 04-13-2019 [facility] 1955 Sex Assigned At Not on file [place] Start: 04-13-2019 End: 02-28-2023 Tobacco use and exposure Never used [facility] Start: 1955 Sex Assigned At Male [facility] Start: 08-14-2022 End: 08-24-2024 Alcohol intake Current drinker of alcohol (finding) [facility] Start: 08-27-2022 End: 09-06-2022 Exposure to SARS-CoV-2 (event) Not sure [facility] Tobacco smoking stat us [facility] Tobacco smoking consumption unknown [facility] Start: 11-07-2022 End: 08-24-2024 History of Social function [facility] Start: 11-07-2022 End: 08-24-2024 Area Deprivation Index [facility] National Score (1-10 0), lower number is lower risk 36 [facility] Start: 08-07-2022 Gender identity Identifies as male gender (finding) [facility] Start: 09-10-2022 Sexual orientation Heterosexual (fin ding) [facility] Start: 04-01-2023 Alcohol Comment Ocassionally - wine [facility] Start: 11-27-2021 Sex Male (finding) Carlos hodge Clinical Notes 09-28-2022 to 08-24-2024 Shyann Gupta, SRINIVASAN - EVA - 08/24/2024 11:30 AM Nikunj De La Rosa MA - 08/24/2024 11:30 AM Winsome Celestin, SRINIVASAN - SLIDER ASSEMBLER - 08/20/2023 11:00 AM Eliazar Demarco RN - 08/20/2023 11:00 AM EDT Note Date & Type Note Facility 08-24-2024 History of Present illness Narrative Images from the original note were not included. Sonido Gupta APRN CNP 08/24/2024 Urology Office Visit [facility] [address] [place] [phone] PATIENT NAME: Robin Delarosa DATE OF : 1955 REFERRING PROVIDER: No ref. provider found PCP: Essie Madrid MD TODAY'S DATE: 08/24/2024 Visit type: Established patient Az is a pleasant 69 y.o. unaccompanied male who presents today for the following: annual follow up for BPH and Elevated PSA Chief Complaint Patient presents with 1 Year Follow-up Assessment and Plan: Diagnosis Plan 1. Benign prostatic hyperplasia without lower urinary tract symptoms 2. Elevated PSA PSA, total and free PSA, total and free 3. Rising PSA level PSA, total and free PSA, total and free Problem List BPH Plan is to continue current treatment as symptoms are well controlled on finasteride, terazosin Dosage/schedule verified Patient is compliant and is tolerating without adverse effects. States his PCP refills his medications 08-24-24: PVR zero ml PSA Recheck PSA in 1 month If PSA >4 will order MRI, if <4 will recheck in 6 months. All patient questions answered. Patient voiced understanding. Patient agreed with treatment plan. Follow Up: Follow up in about 2 months (around 10/24/2024). Sonido Gupta APRN [facility] Urology HPI: Patient presents to the office regarding BPH and Elevated PSA. Records have been reviewed. 08/20/2023: Carrie: BPH - continue terazosin and finasteride. PVR 0mL. History of 2 negative prostate biopsies. Family history of prostate cancer. 04/13/2019: Davidcolby: Uronav biopsy. Benign. 86.2 mL prostate Problem List BPH Patient currently taking finasteride and terazosin. States he feels his symptoms are well controlled. PVR today is zero. Voids q 3 hrs. Nocturia x 1 Urgency: denies UUI: denies GILLES: denies Dysuria: denies Feeling of incomplete emptying: denies Hematuria: denies Stream is good Urinary hesitancy: denies Elevated PSA 08-19-24: PSA 8.76 (finasteride 4.38) Discussed with patient should recheck PSA in 1 month. If PSA >4 will order MRI, if <4 will recheck in 6 months. Discussed when taking finasteride the PSA will be lower than the true value PSA trend: (after corrections) 08-19-24: PSA 8.76 (finasteride 4.38) 08/12/2023: 6.22 (3.11) 08/07/2022: 10.96 (5.48) 11/17/2021: 9.46 Review of Systems: All pertinent positives and negatives per HPI as stated above. Review of Systems Constitutional: Negative for chills and fever. Genitourinary: Negative for difficulty urinating, flank pain, frequency, hematuria and urgency. Past Medical History: Diagnosis Date Arthritis Benign prostatic hyperplasia Elevated PSA Hyperlipemia Hypertension Urinary tract infection Past Surgical History: Procedure Laterality Date BACK SURGERY lumbar OTHER SURGICAL HISTORY thumb surgery (left) Allergies Allergen Reactions Celecoxib Other Reaction(s): GI Upset Diclofenac Other Reaction(s): GI Upset Penicillin G Other reaction(s): Other (See Comments) Other Reaction(s): Unknown Sertraline Other reaction(s): Other (See Comments) Other Reaction(s): Unknown Physical Exam: BP 139/79 Pulse 51 Ht 5' 11 (1.803 m) Wt 180 lb (81.6 kg) BMI 25.10 kg/m Physical Exam Vitals reviewed. Constitutional: Appearance: Normal appearance. He is normal weight. Pulmonary: Effort: Pulmonary effort is normal. No respiratory distress. Neurological: Mental Status: He is alert and oriented to person, place, and time. Psychiatric: Mood and Affect: Mood normal. Behavior: Behavior normal. Thought Content: Thought content normal. Judgment: Judgment normal. Pertinent Labs: CBC: Lab Results Component Value Date WBC 3.9 11/08/2023 HGB 13.2 11/08/2023 HCT 37.4 (L) 11/08/2023 MCV 89.3 11/08/2023 PLT 231 11/08/2023 PSA: 08-19-24: PSA 8.76 (finasteride 4.38) 08/12/2023: 6.22 (3.11) 08/07/2022: 10.96 (5.48) 11/17/2021: 9.46 Imaging: None at this time Procedure: 08-24-24: PVR zero ml Please note that portions of this chart were dictated using [employer] voice recognition software. It is possible that typos and/or omissions and/or substitutions of words and/or phrases may exist, which may alter the intended meaning of the dictating provider. PVR 0 documented in this encounter [facility] 08-20-2023 History of Present illness Narrative Images from the original note were not included. MADELYN Cm 08/20/2023 at 11:14 AM Urology Office Visit [facility] [address] [facility] [address] [facility] [address] Dept: [phone] Dept Loc: [phone] PATIENT NAME: Robin Delarosa DATE OF : 1955 REFERRING PROVIDER: No ref. provider found PCP: Essie Madrid MD TODAY'S DATE: 08/20/2023 CHIEF COMPLAINT: Chief Complaint Patient presents with 1 year follow up PSA and BPH Denies dysuria, gross hematuria, urinary urgency/frequency, states nocturia x1, states he does feel as if he's fully emptying with urination Impression/Plan: Diagnosis Plan 1. Benign prostatic hyperplasia with urinary frequency Bladder scan 2. Elevated PSA PSA Screening PSA Screening 3. History of needle biopsy of prostate with negative result PSA Screening PSA Screening 4. Prostate cancer screening PSA Screening PSA Screening Addressed BPH: Lower urinary tract symptoms quite stable at this time. IPSS 3. Postvoid residual 0 mL. Continue Terazosin 10 mg nightly. Continue Finasteride 5 mg daily. Follow up for PVR in 1 year for this. Addressed history of elevated PSA & negative prostate biopsy: PSA continues to improve on Finasteride, now corrected at 6.22. Prior SHAYNE +2, otherwise wnl. Continue annual screenings due to high PSA finding, and patient would be agreeable that should PSA increase again to have repeat MRI for possible targeted biopsy. PSA & SHAYNE in 1 year. Follow Up: Follow up in about 1 year (around 08/19/2024) for Elevated PSA (labs prior). Kori Celestin, WEB MARKETING INTERN- SLIP COVER [facility] Urology HPI Mr. Delarosa is a 68 y.o. male who presents to the office regarding urologic history of BPH with lower urinary tract symptoms & elevated PSA. He previously had MRI of the pelvis, advised he had very enlarged prostate (100 g). He has had 2 negative prostate biopsies in the past. Records have been reviewed. He has been doing well, he denies any new or changing urologic complaint today. Continues on Terazosin & Finasteride daily. Stream is strong . Denies feeling of incomplete bladder emptying, no day time frequency, and nocturia x0.-1 Reports: Urgency Denies: Splitting/ Spraying, Hesitancy, Dysuria, Intermittency, Hematuria, and UUI IPSS 3. HAMIDA 24. Most recent PSA 3.11 (corrected 6.22) - 08/12/2023. Prior PSA 5.48 (corrected 10.96) - 08/07/2022. Prior PSA 4.73 (corrected 9.46) - 11/17/2021. Review of Systems: All pertinent positives and negatives per HPI as stated above. Social History Social History Tobacco Use Smoking status: Never Smokeless tobacco: Never Substance Use Topics Alcohol use: Yes Drug use: Never Past Medical History: Past Medical History: Diagnosis Date Arthritis Hyperlipemia Hypertension Past Surgical History: Past Surgical History: Procedure Laterality Date BACK SURGERY lumbar OTHER SURGICAL HISTORY thumb surgery (left) Medications Current Outpatient Medications Medication Instructions amLODIPine (Norvasc) 5 MG tablet TAKE 1 TABLET BY MOUTH ONCE DAILY AT NIGHT FOR 30 DAYS Ascorbic Acid 500 MG/5ML liquid 1 tab(s) atenolol (Tenormin) 25 MG tablet No dose, route, or frequency recorded. citalopram (CeleXA) 10 MG tablet No dose, route, or frequency recorded. Diclofenac Sodium (Voltaren) 1 % gel APPLY 2 GRAMS THREE TIMES DAILY DIRECTED finasteride (Proscar) 5 MG tablet No dose, route, or frequency recorded. meloxicam (Mobic) 15 MG tablet No dose, route, or frequency recorded. mometasone (Elocon) 0.1 % ointment APPLY OINTMENT SPARINGLY TO RASH ONCE DAILY DIRECTED omeprazole (PRILOSEC) 20 mg, Oral, Daily pravastatin (Pravachol) 20 MG tablet No dose, route, or frequency recorded. rizatriptan UNDERGROUND MINING SECTION FOREMAN (Maxalt-UNDERGROUND MINING SECTION FOREMAN) 10 MG disintegrating tablet No dose, route, or frequency recorded. terazosin (Hytrin) 10 MG capsule No dose, route, or frequency recorded. valsartan-hydroCHLOROthiazide (Diovan-HCT) 320-12.5 MG tablet No dose, route, or frequency recorded. Vitals: BP 121/68 Pulse 55 Ht 5' 11 (1.803 m) Wt 180 lb (81.6 kg) BMI 25.10 kg/m Physical Exam Vitals and nursing note reviewed. Constitutional: Appearance: Normal appearance. Abdominal: General: There is no distension. Palpations: There is no mass. Tenderness: There is no abdominal tenderness. There is no right CVA tenderness or left CVA tenderness. Neurological: Mental Status: He is alert. Labs: CBC: No results found for: WBC, HGB, HCT, MCV, PLT CMP:No results found for: NA, K, CL, CO2, BUN, CREATININE, GLUCOSE, ALT, AST, ALKPHOS Testosterone: No results found for: TESTOSTERONE PSA: No results found for: PSA Hemoglobin A1C: No results found for: HGBA1C URINALYSIS: No results found for: COLORU, CLARITYU, GLUCOSEUR, BILIRUBINUR, KETONESU, SPECGRAV, RBCUR, PHUR, PROTUR, UROBILINOGEN, LEUKOCYTESUR, NITRITE Radiology Review: XR shoulder 2+ views right Narrative: Patient Name: ROBIN DELAROSA : 1955 [facility]#: [id number] Exam Date/Time: 09/06/2022 15:27 Procedure: XR SHOULDER 2+ VIEWS RIGHT Ordering Provider: MADRID MATTHEW Reason For Exam: m50.30 RIGHT SHOULDER, 3 VIEWS: INDICATION: Right shoulder pain COMPARISON: No previous studies are available for comparison. Grashey, axillary and Y views of the right shoulder were obtained. Bone density appears normal. No fracture or dislocation is noted. The joint spaces are within normal limits. A soft tissue calcification is seen superior to the humeral head which may reflect calcific tendinitis. The right lung apex is clear. Impression: No acute process. Report Dictated on Electronically Signed By: Nathan Mancilla Electronically Signed Date/Time: 09/07/2022 4:16 PM EDT Procedure: Postvoid residua: 0 mL. An electronic signature was used to authenticate this note. Please note that portions of this chart were dictated using [employer] voice recognition software. It is possible that typos and/or omissions and/or substitutions of words and/or phrases may exist, which may alter the intended meaning of the dictating provider. PVR 0ml documented in this encounter [facility] 07-22-2023 Note HNO ID: [id number] Author: GISELL EMANUEL PA-C Service: ? Author Type: Physician Social Services Designee Type: Progress Notes Filed: 07/22/2023 12:30 Note Text: Gisell Emanuel PA-C Department of Orthopaedics Orthopaedics [address] [facility] [address] Dept: [phone] Dept July 22, 2023 CHIEF COMPLAINT: Established Patient and Post Op of the Right Hand. ASSESSMENT: M18.11 Primary osteoarthritis of first carpometacarpal joint of right hand (primary encounter diagnosis) T81.41XA Postoperative stitch abscess SUMMARY/PLAN: Patient presents 9 weeks and 5 days status post right CMC arthroplasty. He is doing very well, denies any pain at today's visit, still some discomfort with radial deviation of the wrist. He continues to wear the brace but only for certain activities. Has a localized area of redness and swelling along his incision site, looks like he may be developing a bit of a stitch abscess. Will get him on a short course of an oral antibiotic. Continue to transition out of the brace as he feels comfortable doing so. I asked him to message us or call if the redness along the incision line does not resolve. Exam: Incision site is well-healed, there is an area almost midline which is erythematous, there is a small pustule just under the skin. Surrounding tissues are not erythematous, there is mild but appropriate edema near the incision site extending up into the thumb. Patient is able to easily oppose the thumb with all of the digits and abduct the thumb. No radial sensory hypersensitivity noted. Imaging: Deferred today. Mr. Robin Delarosa was advised as to contrast therapies and/or to take analgesics/anti-inflammatories as needed and all contraindications were reviewed. Supporting Information Below: Medications: Current Outpatient Medications Medication Sig amLODIPine (NORVASC) 5 mg tablet Take 5 mg by mouth once daily. atenolol (TENORMIN) 25 mg tablet Take 25 mg by mouth once daily. citalopram hydrobromide (CELEXA) 10 mg tablet Take 10 mg by mouth once daily. diclofenac (VOLTAREN) 1 % topical gel Apply 2 g to affected area as needed. finasteride (PROSCAR) 5 mg tablet meloxicam (MOBIC) 15 mg tablet Take 15 mg by mouth as needed. mometasone (ELOCON) 0.1 % cream Apply 1 g to affected area as needed. omeprazole (PRILOSEC) 20 mg capsule Take 20 mg by mouth once daily. pravastatin (PRAVACHOL) 20 mg tablet Take 20 mg by mouth once daily. rizatriptan (MAXALT) 10 mg tablet Take 10 mg by mouth as needed. Terazosin HCl (HYTRIN) 10 mg capsule Take 10 mg by mouth once daily. Valsartan-hydroCHLOROthiazide 320-12.5 mg per tablet Take 1 tablet by mouth once daily. cephALEXin (KEFLEX) 250 mg capsule Take 1 capsule by mouth four times daily for 5 days. No current facility-administered medications for this visit. Allergies: Celecoxib, Diclofenac, Penicillin G, and Sertraline This note was partially generated using [employer] voice recognition system, and there may be some incorrect words, spellings, and punctuation that were not noted in checking the note before saving. Gisell Emanuel PA-C [facility] 07-22-2023 Note HNO ID: [id number] Author: KRISTY LIMON MA Service: ? Author Type: Fishing Line Winding Machine Operator Type: Progress Notes Filed: 07/22/2023 12:30 Note Text: AMB ROOMING INTAKE FLOWSHEET DATA Patient here today 9 weeks 5 days post op right thumb CMC arthroplasty with tendon transfer and suspension, 1st dorsal compartment release and right CTR. The thumb incision is red and irritated today. He states that started at the end of last week and today it looks worse. He denies any drainage from the area or fever. He has been wearing a brace for support. [facility] 07-22-2023 History of Present illness Narrative Gisell Emanuel PA-C Department of Orthopaedics Orthopaedics [facility] [address] Dept: [phone] Dept July 22, 2023 CHIEF COMPLAINT: Established Patient and Post Op of the Right Hand. ASSESSMENT: M18.11 Primary osteoarthritis of first carpometacarpal joint of right hand (primary encounter diagnosis) T81.41XA Postoperative stitch abscess SUMMARY/PLAN: Patient presents 9 weeks and 5 days status post right CMC arthroplasty. He is doing very well, denies any pain at today's visit, still some discomfort with radial deviation of the wrist. He continues to wear the brace but only for certain activities. Has a localized area of redness and swelling along his incision site, looks like he may be developing a bit of a stitch abscess. Will get him on a short course of an oral antibiotic. Continue to transition out of the brace as he feels comfortable doing so. I asked him to message us or call if the redness along the incision line does not resolve. Exam: Incision site is well-healed, there is an area almost midline which is erythematous, there is a small pustule just under the skin. Surrounding tissues are not erythematous, there is mild but appropriate edema near the incision site extending up into the thumb. Patient is able to easily oppose the thumb with all of the digits and abduct the thumb. No radial sensory hypersensitivity noted. Imaging: Deferred today. Mr. Robin Delarosa was advised as to contrast therapies and/or to take analgesics/anti-inflammatories as needed and all contraindications were reviewed. Supporting Information Below: Medications: Current Outpatient Medications Medication Sig amLODIPine (NORVASC) 5 mg tablet Take 5 mg by mouth once daily. atenolol (TENORMIN) 25 mg tablet Take 25 mg by mouth once daily. citalopram hydrobromide (CELEXA) 10 mg tablet Take 10 mg by mouth once daily. diclofenac (VOLTAREN) 1 % topical gel Apply 2 g to affected area as needed. finasteride (PROSCAR) 5 mg tablet meloxicam (MOBIC) 15 mg tablet Take 15 mg by mouth as needed. mometasone (ELOCON) 0.1 % cream Apply 1 g to affected area as needed. omeprazole (PRILOSEC) 20 mg capsule Take 20 mg by mouth once daily. pravastatin (PRAVACHOL) 20 mg tablet Take 20 mg by mouth once daily. rizatriptan (MAXALT) 10 mg tablet Take 10 mg by mouth as needed. Terazosin HCl (HYTRIN) 10 mg capsule Take 10 mg by mouth once daily. Valsartan-hydroCHLOROthiazide 320-12.5 mg per tablet Take 1 tablet by mouth once daily. cephALEXin (KEFLEX) 250 mg capsule Take 1 capsule by mouth four times daily for 5 days. No current facility-administered medications for this visit. Allergies: Celecoxib, Diclofenac, Penicillin G, and Sertraline This note was partially generated using [employer] voice recognition system, and there may be some incorrect words, spellings, and punctuation that were not noted in checking the note before saving. Gisell Emanuel PA-C AMB ROOMING INTAKE FLOWSHEET DATA Patient here today 9 weeks 5 days post op right thumb CMC arthroplasty with tendon transfer and suspension, 1st dorsal compartment release and right CTR. The thumb incision is red and irritated today. He states that started at the end of last week and today it looks worse. He denies any drainage from the area or fever. He has been wearing a brace for support. documented in this encounter [facility] 06-25-2023 Note HNO ID: [id number] Author: CHEN FUNEZ OT/L Service: ? Author Type: Occupational Therapist Type: Progress Notes Filed: 06/25/2023 15:03 Note Text: Episode Visit Count: 4 Therapist That Will Accept/Oversee The Plan Of Care: Faizan Siddiqui Start of Care Date: 05/28/23 Onset Date: 05/15/23 Plan of Care Certification Date: 05/28/23 Next Certification Due Date: 08/30/23 Patient Identified by Name and Date of : Yes REHABILITATION AND SPORTS THERAPY OCCUPATIONAL THERAPY TREATMENT NOTE ASSESSMENT: Robin Delarosa tolerated the session with no issues. He demonstrated improvements in overaoll use of hand using less splinting. The patient will continue to benefit from ongoing skilled occupational therapy to progress toward set goals. PLAN FOR NEXT VISIT: reassess anticipate discharge SUBJECTIVE: 6 weeks CMC pt feels he has been doing better, Pain: OBJECTIVE MEASURES WITH LEVEL OF FUNCTION: TREATMENT: Therapeutic Exercise: 1: AROM WHILE IN FLUIDOTHERAPY X 10 MINUTES 2: instructed pt in weaning self out of splint more and more 3: with 1 lb weight wrist flex.ext dev and sup pro 4: soft putty game protector, digit extension roll, 5: soft yellow putty digit flexion thumb flex ext and tripod pinch Skilled Intervention: Patient was educated in proper exercise technique and purpose for exercises. Billing Therapeutic Exercise Treatment Minutes: 40 Total Session Time (minutes): 40 Session Start Time : 1145 Session Stop Time : 1225 Chen Funez OT/L [facility] 06-25-2023 History of Present illness Narrative Episode Visit Count: 4 Therapist That Will Accept/Oversee The Plan Of Care: Faizan Siddiqui Start of Care Date: 05/28/23 Onset Date: 05/15/23 Plan of Care Certification Date: 05/28/23 Next Certification Due Date: 08/30/23 Patient Identified by Name and Date of : Yes REHABILITATION AND SPORTS THERAPY OCCUPATIONAL THERAPY TREATMENT NOTE ASSESSMENT: Robin Delarosa tolerated the session with no issues. He demonstrated improvements in overaoll use of hand using less splinting. The patient will continue to benefit from ongoing skilled occupational therapy to progress toward set goals. PLAN FOR NEXT VISIT: reassess anticipate discharge SUBJECTIVE: 6 weeks CMC pt feels he has been doing better, Pain: OBJECTIVE MEASURES WITH LEVEL OF FUNCTION: TREATMENT: Therapeutic Exercise: 1: AROM WHILE IN FLUIDOTHERAPY X 10 MINUTES 2: instructed pt in weaning self out of splint more and more 3: with 1 lb weight wrist flex.ext dev and sup pro 4: soft putty game protector, digit extension roll, 5: soft yellow putty digit flexion thumb flex ext and tripod pinch Skilled Intervention: Patient was educated in proper exercise technique and purpose for exercises. Billing Therapeutic Exercise Treatment Minutes: 40 Total Session Time (minutes): 40 Session Start Time : 1145 Session Stop Time : 1225 MARILEE Lopez documented in this encounter [facility] 06-18-2023 Note HNO ID: [id number] Author: CHEN FUNEZ OT/L Service: ? Author Type: Occupational Therapist Type: Progress Notes Filed: 06/18/2023 17:37 Note Text: Episode Visit Count: 3 Therapist That Will Accept/Oversee The Plan Of Care: Faizan Siddiqui Start of Care Date: 05/28/23 Onset Date: 05/15/23 Plan of Care Certification Date: 05/28/23 Next Certification Due Date: 08/30/23 Patient Identified by Name and Date of : Yes REHABILITATION AND SPORTS THERAPY OCCUPATIONAL THERAPY TREATMENT NOTE ASSESSMENT: Robin Delarosa tolerated the session with no issues. He demonstrated improvements in motion scar and reduced edema . The patient will continue to benefit from ongoing skilled occupational therapy to progress toward set goals. PLAN FOR NEXT VISIT: fluido weight exercises SUBJECTIVE: 4 weeks post CMC Arthroplasty reports improvement but still stiff Pain: Pain Pain Level: 0 OBJECTIVE MEASURES WITH LEVEL OF FUNCTION: UE AROM R Wrist Extension: 55 Degrees R Wrist Flexion: 45 Degrees R Wrist Radial Deviation: 15 Degrees R Wrist Ulnar Deviation: 20 Degrees Hand AROM R Thumb MP Flexion : 30 Degrees R Thumb IP Flexion : 22 Degrees TREATMENT: Therapeutic Exercise: 1: AROM WHILE IN FLUIDOTHERAPY X 10 MINUTES 2: fa bricated hand based splint instructed in wear schedule and precautions 3: soft sponge game protector and manipulate 4: medium sponge pieces fruit or nut picker Skilled Intervention: Patient was educated in proper exercise technique and purpose for exercises. Skilled judgment was used in selection of appropriate interventions. Custom orthosis: L 3913 HFO w/out joints (short opponens, all CMC designs, C-bar, hand hernandez, hand gutter, hand trigger, anti-claw) Custom orthosis to provide Pt practiced orthosis application, donning on/off while under OT's supervision. and to promote healing. Patient was instructed in care of orthosis and wearing schedule manager multimedia except when exercising / bathing. . Skilled Intervention: Clinical knowledge and skills required for custom orthotic fabrication and wearing schedule Billing Therapeutic Exercise Treatment Minutes: 40 * L 3913 HFO w/out joints (short opponens, all CMC designs, C-bar, hand hernandez, hand gutter, hand trigger, anti-claw) Quantity: 1 Total Session Time (minutes): 40 Session Start Time : 1500 Session Stop Time : 1540 Chen Funez OT/Armando [facility] 06-18-2023 History of Present illness Narrative Episode Visit Count: 3 Therapist That Will Accept/Oversee The Plan Of Care: Faizan Siddiqui Start of Care Date: 05/28/23 Onset Date: 05/15/23 Plan of Care Certification Date: 05/28/23 Next Certification Due Date: 08/30/23 Patient Identified by Name and Date of : Yes REHABILITATION AND SPORTS THERAPY OCCUPATIONAL THERAPY TREATMENT NOTE ASSESSMENT: Robin Delarosa tolerated the session with no issues. He demonstrated improvements in motion scar and reduced edema . The patient will continue to benefit from ongoing skilled occupational therapy to progress toward set goals. PLAN FOR NEXT VISIT: fluido weight exercises SUBJECTIVE: 4 weeks post CMC Arthroplasty reports improvement but still stiff Pain: Pain Pain Level: 0 OBJECTIVE MEASURES WITH LEVEL OF FUNCTION: UE AROM R Wrist Extension: 55 Degrees R Wrist Flexion: 45 Degrees R Wrist Radial Deviation: 15 Degrees R Wrist Ulnar Deviation: 20 Degrees Hand AROM R Thumb MP Flexion : 30 Degrees R Thumb IP Flexion : 22 Degrees TREATMENT: Therapeutic Exercise: 1: AROM WHILE IN FLUIDOTHERAPY X 10 MINUTES 2: fa bricated hand based splint instructed in wear schedule and precautions 3: soft sponge game protector and manipulate 4: medium sponge pieces fruit or nut picker Skilled Intervention: Patient was educated in proper exercise technique and purpose for exercises. Skilled judgment was used in selection of appropriate interventions. Custom orthosis: L 3913 HFO w/out joints (short opponens, all CMC designs, C-bar, hand hernandez, hand gutter, hand trigger, anti-claw) Custom orthosis to provide Pt practiced orthosis application, donning on/off while under OT's supervision. and to promote healing. Patient was instructed in care of orthosis and wearing schedule manager multimedia except when exercising / bathing. . Skilled Intervention: Clinical knowledge and skills required for custom orthotic fabrication and wearing schedule Billing Therapeutic Exercise Treatment Minutes: 40 * L 3913 HFO w/out joints (short opponens, all CMC designs, C-bar, hand hernandez, hand gutter, hand trigger, anti-claw) Quantity: 1 Total Session Time (minutes): 40 Session Start Time : 1500 Session Stop Time : 1540 MARILEE Lopez documented in this encounter [facility] 06-11-2023 Note HNO ID: [id number] Author: JOHN FRY MD Service: ? Author Type: Physician Type: Progress Notes Filed: 06/11/2023 10:49 Note Text: John Fry MD Department of Orthopaedics Orthopaedics [address] [place] [id number] Dept: [phone] June 11, 2023 CHIEF COMPLAINT: Established Patient and Post Op of the Right Hand. HPI Patient is 3 weeks 6 days post op right CMC arthroplasty with tendon transfer and suspension, 1st dorsal compartment release and right CTR. He denies pain. New x-ray today. ASSESSMENT: M18.11 Primary osteoarthritis of first carpometacarpal joint of right hand (primary encounter diagnosis) SUMMARY/PLAN: He is doing very well so far after surgery. He is going to be getting his hand-based splint placed later this week or early next. Continue range of motion. See him in a month. Exam: Incision. No swelling. Good range of motion in the hand considering his history of severe arthritis. Imagin views of the hand show trapeziectomy without any interval concerns. Mr. Robin Delarosa was advised as to contrast therapies and/or to take analgesics/anti-inflammatories as needed and all contraindications were reviewed. Supporting Information Below: Medications: Current Outpatient Medications Medication Sig amLODIPine (NORVASC) 5 mg tablet Take 5 mg by mouth once daily. atenolol (TENORMIN) 25 mg tablet Take 25 mg by mouth once daily. citalopram hydrobromide (CELEXA) 10 mg tablet Take 10 mg by mouth once daily. finasteride (PROSCAR) 5 mg tablet meloxicam (MOBIC) 15 mg tablet Take 15 mg by mouth as needed. omeprazole (PRILOSEC) 20 mg capsule Take 20 mg by mouth once daily. pravastatin (PRAVACHOL) 20 mg tablet Take 20 mg by mouth once daily. Terazosin HCl (HYTRIN) 10 mg capsule Take 10 mg by mouth once daily. Valsartan-hydroCHLOROthiazide 320-12.5 mg per tablet Take 1 tablet by mouth once daily. diclofenac (VOLTAREN) 1 % topical gel Apply 2 g to affected area as needed. mometasone (ELOCON) 0.1 % cream Apply 1 g to affected area as needed. rizatriptan (MAXALT) 10 mg tablet Take 10 mg by mouth as needed. No current facility-administered medications for this visit. Allergies: Celecoxib, Diclofenac, Penicillin G, and Sertraline John Fry MD [facility] 06-11-2023 Note HNO ID: [id number] Author: MIGNON DALEY Tech Service: Radiology Author Type: Motel Clerk Type: Progress Notes Filed: 06/11/2023 10:05 Note Text: Radiology Service Progress Note PATIENT NAME: Robin Delarosa DATE OF SERVICE: June 11, 2023 TIME: 10:05 AM PATIENT IDENTITY VERIFICATION COMPLETED USING TWO (2) IDENTIFIERS: Name and Date of confirmed by patient verbally. FALL SCREENING: Has the patient had 2 falls in the last year or 1 fall with injury or currently using an Ambulatory Assistive Device (Walker, Cane, Wheelchair, Crutches, etc.)? No PATIENT GENDER DATA: Male PATIENT RELEVANT IMPLANT DATA REVIEWED: Not Applicable PATIENT PRESENTS WITH AN IMPLANTABLE OR ATTACHED OAKES MACHINE OPERATOR: No RADIOLOGY DEPARTMENT: General X-ray: Exam(s) Completed: Upper Extremity X-Ray(s): Hand, right PERIPHERAL IV DATA: Not applicable SIGNED BY: Shanice Navarro June 11, 2023 10:05 AM [facility] 06-11-2023 History of Present illness Narrative John Fry MD Department of Orthopaedics Orthopaedics [address] [address] Dept: [phone] June 11, 2023 CHIEF COMPLAINT: Established Patient and Post Op of the Right Hand. HPI Patient is 3 weeks 6 days post op right CMC arthroplasty with tendon transfer and suspension, 1st dorsal compartment release and right CTR. He denies pain. New x-ray today. ASSESSMENT: M18.11 Primary osteoarthritis of first carpometacarpal joint of right hand (primary encounter diagnosis) SUMMARY/PLAN: He is doing very well so far after surgery. He is going to be getting his hand-based splint placed later this week or early next. Continue range of motion. See him in a month. Exam: Incision. No swelling. Good range of motion in the hand considering his history of severe arthritis. Imagin views of the hand show trapeziectomy without any interval concerns. Mr. Robin Delarosa was advised as to contrast therapies and/or to take analgesics/anti-inflammatories as needed and all contraindications were reviewed. Supporting Information Below: Medications: Current Outpatient Medications Medication Sig amLODIPine (NORVASC) 5 mg tablet Take 5 mg by mouth once daily. atenolol (TENORMIN) 25 mg tablet Take 25 mg by mouth once daily. citalopram hydrobromide (CELEXA) 10 mg tablet Take 10 mg by mouth once daily. finasteride (PROSCAR) 5 mg tablet meloxicam (MOBIC) 15 mg tablet Take 15 mg by mouth as needed. omeprazole (PRILOSEC) 20 mg capsule Take 20 mg by mouth once daily. pravastatin (PRAVACHOL) 20 mg tablet Take 20 mg by mouth once daily. Terazosin HCl (HYTRIN) 10 mg capsule Take 10 mg by mouth once daily. Valsartan-hydroCHLOROthiazide 320-12.5 mg per tablet Take 1 tablet by mouth once daily. diclofenac (VOLTAREN) 1 % topical gel Apply 2 g to affected area as needed. mometasone (ELOCON) 0.1 % cream Apply 1 g to affected area as needed. rizatriptan (MAXALT) 10 mg tablet Take 10 mg by mouth as needed. No current facility-administered medications for this visit. Allergies: Celecoxib, Diclofenac, Penicillin G, and Sertraline John Fry MD [facility] [facility] History of Present illness Narrative Radiology Service Progress Note PATIENT NAME: Robin Delarosa DATE OF SERVICE: June 11, 2023 TIME: 10:05 AM PATIENT IDENTITY VERIFICATION COMPLETED USING TWO (2) IDENTIFIERS: Name and Date of confirmed by patient verbally. FALL SCREENING: Has the patient had 2 falls in the last year or 1 fall with injury or currently using an Ambulatory Assistive Device (Walker, Cane, Wheelchair, Crutches, etc.)? No PATIENT GENDER DATA: Male PATIENT RELEVANT IMPLANT DATA REVIEWED: Not Applicable PATIENT PRESENTS WITH AN IMPLANTABLE OR ATTACHED OAKES MACHINE OPERATOR: No RADIOLOGY DEPARTMENT: General X-ray: Exam(s) Completed: Upper Extremity X-Ray(s): Hand, right PERIPHERAL IV DATA: Not applicable SIGNED BY: Shanice Navarro June 11, 2023 10:05 AM documented in this encounter [facility] 06-04-2023 Note HNO ID: [id number] Author: CHEN FUNEZ OT/Armando Service: ? Author Type: Occupational Therapist Type: Progress Notes Filed: 06/04/2023 16:32 Note Text: Episode Visit Count: 2 Therapist That Will Accept/Oversee The Plan Of Care: Faizan Siddiqui Start of Care Date: 05/28/23 Onset Date: 05/15/23 Plan of Care Certification Date: 05/28/23 Next Certification Due Date: 08/30/23 Patient Identified by Name and Date of : Yes REHABILITATION AND SPORTS THERAPY OCCUPATIONAL THERAPY TREATMENT NOTE ASSESSMENT: Robin Delarosa tolerated the session with no issues. He demonstrated improvements in edema reduction still stiff with wriist and thumb AROM. The patient will continue to benefit from ongoing skilled occupational therapy to progress toward set goals. PLAN FOR NEXT VISIT: hand based splint, fluido and sponge SUBJECTIVE: pt 3 weeks post cmc arthroplasty and ctr reports some discomfort in splint otherwise complains of being stiff Pain: Pain Pain Level: 1 Pain Location: Wrist - Right Description: Stiffness OBJECTIVE MEASURES WITH LEVEL OF FUNCTION: UE AROM R Wrist Extension: 55 Degrees R Wrist Flexion: 25 Degrees Hand AROM R Thumb MP Flexion : 25 Degrees R Thumb IP Flexion : 27 Degrees TREATMENT: Therapeutic Exercise: 1: adjusted splint 2: thumb AROM all planes 3: wrist AROM all planes added fisted wrist flex ext 4: issued silicone for scar management instructed in wear schedule and precautions Skilled Intervention: Patient was educated in proper exercise technique and purpose for exercises. Billing Therapeutic Exercise Treatment Minutes: 44 Total Session Time (minutes): 44 Session Start Time : 1545 Session Stop Time : 1629 Chen Funez OT/L [facility] 06-04-2023 History of Present illness Narrative Episode Visit Count: 2 Therapist That Will Accept/Oversee The Plan Of Care: Faizan Siddiqui Start of Care Date: 05/28/23 Onset Date: 05/15/23 Plan of Care Certification Date: 05/28/23 Next Certification Due Date: 08/30/23 Patient Identified by Name and Date of : Yes REHABILITATION AND SPORTS THERAPY OCCUPATIONAL THERAPY TREATMENT NOTE ASSESSMENT: Robin Delarosa tolerated the session with no issues. He demonstrated improvements in edema reduction still stiff with wriist and thumb AROM. The patient will continue to benefit from ongoing skilled occupational therapy to progress toward set goals. PLAN FOR NEXT VISIT: hand based splint, fluido and sponge SUBJECTIVE: pt 3 weeks post cmc arthroplasty and ctr reports some discomfort in splint otherwise complains of being stiff Pain: Pain Pain Level: 1 Pain Location: Wrist - Right Description: Stiffness OBJECTIVE MEASURES WITH LEVEL OF FUNCTION: UE AROM R Wrist Extension: 55 Degrees R Wrist Flexion: 25 Degrees Hand AROM R Thumb MP Flexion : 25 Degrees R Thumb IP Flexion : 27 Degrees TREATMENT: Therapeutic Exercise: 1: adjusted splint 2: thumb AROM all planes 3: wrist AROM all planes added fisted wrist flex ext 4: issued silicone for scar management instructed in wear schedule and precautions Skilled Intervention: Patient was educated in proper exercise technique and purpose for exercises. Billing Therapeutic Exercise Treatment Minutes: 44 Total Session Time (minutes): 44 Session Start Time : 1545 Session Stop Time : 1629 MARILEE Lopez documented in this encounter [facility] 05-28-2023 Note HNO ID: [id number] Author: CHEN FUNEZ OT/L Service: ? Author Type: Occupational Therapist Type: Progress Notes Filed: 05/28/2023 16:56 Note Text: Episode Visit Count: 1 Therapist That Will Accept/Oversee The Plan Of Care: Faizan Siddiqui Start of Care Date: 05/28/23 Onset Date: 05/15/23 Plan of Care Certification Date: 05/28/23 Next Certification Due Date: 08/30/23 Patient Identified by Name and Date of : Yes [facility] REHABILITATION AND SPORTS THERAPY OCCUPATIONAL THERAPY EVALUATION PLAN OF CARE: Assessment: Robin Delarosa presents with diagnosis of post CMC Arthroplasty and CTR that interferes with . He presents with impairments in range of motion, soft tissue healing, and strength. Patient did not complete the PROMIS? (Patient Reported Outcome Measures Information System). Prognosis for therapy is Good due to: current objective clinical presentation . He will benefit from skilled therapy services to meet the goals established for this plan of care as noted below. Goals for Episode of Care created on 05/28/23 through 08/30/23 Patient will report a good understanding of diagnosis and OT recommendations for progression of program. Patient will increase AROM of Right wrist and hand to WFL in order to be able to improve function for prior functional tasks. Patient will independently demonstrate correct application of CUSTOM orthosis and verbalize understanding of proper wear/care. Patient will report a good understanding of edema control, scar / wound management throughout therapy plan of care to promote non-adherent / non-tender soft tissue. Patient Goals: to resume function Planned Interventions, Frequency, and Duration: Current Frequency: 1x/week Duration: 8 weeks Total Number of Visits Planned: 8 Planned Treatment Interventions: Custom orthosis fabrication, Prefabricated orthosis fitting, Self-long-term management (23617), Therapeutic exercise (32681) PLAN FOR NEXT VISIT: adjust splint prn, full thumb AROM , Scar management fluido Patient demonstrates good understanding of plan of care and treatment. The above goals and plan of care were discussed and agreed upon by patient/family. SUBJECTIVE: pt her 13 days post CMC Arthroplasty CTR reports some discomfort has some knowledge of rehab he had his left done sverqal years ago Patient Goals: to resume function Relevant History Past Relevant Medical Conditions: Hypertension, Arthritis, Prostate Disease Past Relevant Surgical Conditions: Spine fusion - Lumbar (left CMC Arthroplasty) Right or Left Handed: Right Employment: Retired Hobbies / Interests: show horse and dogs Home Environment Patient Lives With: Spouse Assistance Available: PRN Pain: Pain Pain Level: 2 Pain Location: Wrist - Right Post Treatment Pain Post Treatment Pain Level: No Change PROMIS Scales Higher is Better 05/28/2023 05/27/2023 02/27/2023 Phys Func - Score - 47 (within normal limits) 41 (mild dysfunction) Phys Func - Percentile - 38% 18% Self-Eff Symptom - Score 44 (Average) - - Self-Eff Symptom - Percentile 27% - - T-scores: mean of general population = 50. 5 points is clinically meaningfully difference Percentiles provide an indication of how the patient's score ranks in relation to the general population. Higher percentile rankings indicate better function/quality of life. 50th percentile is the average of the general population and indicates half of respondents had a worse score. OBJECTIVE MEASURES WITH LEVEL OF FUNCTION: Hand Skin / Wound: Sutures, Scar Sutures: absorbable, to be removed Scar: Tender, Mild adherance Edema Location: right hand Edema Description: Mild Edema Measurements: Wrist (DWC) (cm) R Wrist (DWC) (cm): 19.7 L Wrist (DWC) (cm): 19.6 Wrist AROM: Right Limitation Right Hand AROM: WFL (full but not tight fist) Thumb AROM: Right Limitation Sensation: Denies tingling or numbness UE AROM R Forearm Supination: 85 Degrees R Forearm Pronation: 80 Degrees R Wrist Extension: 40 Degrees R Wrist Flexion: 45 Degrees R Wrist Radial Deviation: 20 Degrees R Wrist Ulnar Deviation: 25 Degrees Right Hand AROM: WFL (full but not tight fist) Thumb AROM: Right Limitation Hand AROM R Thumb MP Flexion : 36 Degrees R Thumb IP Flexion : 34 Degrees R Thumb Radial Abduction: 55 Degrees R Thumb Palmar Abduction: 55 Degrees Education: Education Learning Preferences: Demonstration, Explanation, Performance, Printed Materials Barriers: None Learning/educational needs: Home exercise program, Plan of Care, Brace Fit Education Provided: Yes, see treatment interventions for education provided Education Provided To: Patient Education Mode/Type: Demonstration, Explanation/Discussion, Literature/Printed Materials Response to Education/Teach Back: States/Identifies, Return Demonstration, Requires Review/Additional Education TREATMENT: OT Treatment Interventions (more content not included)... [facility] 05-28-2023 Note HNO ID: [id number] Author: GISELL EMANUEL PA-C Service: ? Author Type: Physician Social Services Designee Type: Progress Notes Filed: 05/28/2023 10:25 Note Text: Gisell Emanuel PA-C Department of Orthopaedics Orthopaedics [address] [place] [id number] Dept: [phone] May 28, 2023 CHIEF COMPLAINT: Established Patient, Post Op, and Pain of the Right Hand. ASSESSMENT: M18.11 Primary osteoarthritis of first carpometacarpal joint of right hand (primary encounter diagnosis) G56.01 Right carpal tunnel syndrome SUMMARY/PLAN: Patient presents just about 2 weeks status post right thumb CMC arthroplasty and right carpal tunnel release. He is doing well, having some intermittent 2 out of 10 throbbing pain in the base of the thumb. Will get him into occupational therapy for an Orthoplast splint, we discussed splint can be removed for hygiene purposes and to work on range of motion exercises. Will see him back in 2 weeks as planned. Exam: Both incision sites are well-approximated without erythema or drainage, there is mild but appropriate edema at the base of the thumb extending up into the digit. Patient is able to gently oppose the thumb and index finger, no radial sensory hypersensitivity. Sensations intact in the radial 3 digits on the right. Imaging: Deferred today. Mr. Robin Delarosa was advised as to contrast therapies and/or to take analgesics/anti-inflammatories as needed and all contraindications were reviewed. Supporting Information Below: Medications: Current Outpatient Medications Medication Sig amLODIPine (NORVASC) 5 mg tablet Take 5 mg by mouth once daily. atenolol (TENORMIN) 25 mg tablet Take 25 mg by mouth once daily. citalopram hydrobromide (CELEXA) 10 mg tablet Take 10 mg by mouth once daily. diclofenac (VOLTAREN) 1 % topical gel Apply 2 g to affected area as needed. finasteride (PROSCAR) 5 mg tablet meloxicam (MOBIC) 15 mg tablet Take 15 mg by mouth as needed. mometasone (ELOCON) 0.1 % cream Apply 1 g to affected area as needed. omeprazole (PRILOSEC) 20 mg capsule Take 20 mg by mouth once daily. pravastatin (PRAVACHOL) 20 mg tablet Take 20 mg by mouth once daily. rizatriptan (MAXALT) 10 mg tablet Take 10 mg by mouth as needed. Terazosin HCl (HYTRIN) 10 mg capsule Take 10 mg by mouth once daily. Valsartan-hydroCHLOROthiazide 320-12.5 mg per tablet Take 1 tablet by mouth once daily. No current facility-administered medications for this visit. Allergies: Celecoxib, Diclofenac, Penicillin G, and Sertraline This note was partially generated using Fleep voice recognition system, and there may be some incorrect words, spellings, and punctuation that were not noted in checking the note before saving. Gisell Emanuel PA-C [facility] 05-15-2023 Note HNO ID: [id number] Author: RITESH DUARTE MD Service: Anesthesiology Author Type: Anesthesiologist Type: Anesthesia Procedure Notes Filed: 05/15/2023 11:15 Note Text: ANESTHESIOLOGY PROCEDURE NOTE Peripheral Nerve Block General Information Procedure Start Time/Medication Administration: 05/15/2023 11:00 AM Procedure End time: 05/15/2023 11:12 AM Patient location during procedure: induction room Timeout Performed Pre-procedure: timeout performed Consent Obtained: Yes Patient identity confirmed: arm band and patient Reason for block: post-op pain management/at surgeon's request Staffing Anesthesiologist: Ritesh Duarte MD Performed by: anesthesiologist Preparation Sterility Preparation: hand hygiene performed prior to procedure, sterile gloves, drapes, and procedure tray, surgical cap used, mask used, sterile drape used during line insertion, skin prep agent completely dried prior to procedure Site Prep: Chloraprep Pre-Procedure Neuro Exam Location: RUE Sensory: intact Motor: intact Procedure Details Patient Position: supine Monitoring: Pulse OX, EKG and NIBP Block Type Upper Extremity: axillary Laterality: right Injection Technique: single-shot Ultrasound Guided: Yes Image in Chart: yes Local Infiltration: Yes Needle Needle Gauge: 21 G Needle Length: 51 mm Needle Localization: ultrasound Assessment Injection assessment: negative aspiration, no paresthesia on injection, incremental injection and local visualized surrounding nerve on ultrasound Paresthesia: none Post-Procedure Neuro Exam Expected Regional Anesthesia: Yes Medications Administered dexamethasone sodium phosphate injection (DECADRON) - peripheral nerve block 10 mg - 05/15/2023 11:00:00 AM ropivacaine (PF) 5 mg/mL (0.5 %) injection (NAROPIN) - peripheral nerve block 40 mL - 05/15/2023 11:00:00 AM SIGNATURE: Ritesh Duarte MD PATIENT NAME: Robin Delarosa DATE: May 15, 2023 TIME: 11:14 AM CSN: [id number] [facility] 04-01-2023 Note HNO ID: [id number] Author: John Fry MD Service: ? Author Type: Physician Type: Progress Notes Filed: 04/30/2023 9:26 AM Note Text: John Fry MD Department of Orthopaedics Orthopaedics [address] [place] [address] Dept: [phone] Dept April 01, 2023 CHIEF COMPLAINT: Established Patient of the Right Hand (Right CTS and OA right thumb. /Referred by JESSI Meeks/EMG 03/08/2023) HPI: Patient here for right hand pain. States he had a CMC surgery on his left thumb before. His is present at this visit. ASSESSMENT: M18.11 Primary osteoarthritis of first carpometacarpal joint of right hand (primary encounter diagnosis) G56.01 Carpal tunnel syndrome of right wrist PLAN: We reviewed the risks, benefits, alternatives and potential complications with both operative and non-op treatments for both the thumb and carpal tunnel. He would like to proceed with both. FOLLOW UP INSTRUCTIONS: Per the patient's wishes. Mr. Robin Delarosa was advised as to contrast therapies and/or to take analgesics/anti-inflammatories as needed and all contraindications were reviewed. OBJECTIVE: Mr. Robin Delarosa is a pleasant 67 year old in no apparent distress. Gen:There were no vitals taken for this visit. nl development, non obese, no deformities ENT: Normocephalic, normal hearing, moist mucosa CV: Pulses:Radial= 2+ and symmetric, capillary refill < 2 secs, no peripheral edema/varicosities Skin: no rash, bruising or lesions. Good turgor. Psych: cooperative and appropriate, alert and oriented x 3, good mood and affect. Musculoskeletal: Swelling and tenderness at the basal joint of the thumb. Pain and crepitus with limited motion at the CMC joint. There is 20 degrees of hyperextension at the MCP joint. Positive Tinel's, positive MNCT at the wrist; diminished light touch sensation in the median nerve distribution. Severe, yet pain free PIPs at Middle, ring, and small. Severe at DIPs as well without pain. IMAGING: Electrodiagnostic examination of the right upper limb with additional nerve conduction studies of the left upper limb, reveals changes most consistent with the followin. Bilateral median mononeuropathies at or distal to the wrist (consistent with a clinical diagnosis of carpal tunnel syndrome), severe in degree on the right and mild in degree on the left electrically. 2. Residuals of an old/chronic intraspinal canal lesion (ie: motor radiculopathy) at the following root(s)/segment(s): -RIGHT C5, C6, C7, and C8, mild in degree electrically, without evidence of ongoing motor axon loss. IMPRESSION: Findings as discussed under Results portion of report. Manager Multimedia: ALEJANDRO Transcribe Date/Time: Mar 01 2023 1:12P Dictated by : MELISSA MCARTHUR DO This examination was interpreted and the report reviewed and electronically signed by: MELISSA MCARTHUR DO on Mar 01 2023 1:13PM EST Results-Findings * * *Final Report* * * DATE OF EXAM: Feb 28 2023 9:16AM SHANDRA 5346 - XR HAND 3V PA/LAT/OBL RT / PROCEDURE REASON: [id number] * * * * Physician Interpretation * * * * EXAM(s): XR HAND 3V PA/LAT/OBL RT EXAM DATE/TIME: 02/28/2023 9:16 AM HISTORY: 67 years old Clinical information: Pain numbness and tingling has gotten worse the last month TECHNIQUE: Images: XR HAND 3V PA/LAT/OBL RT Comparison: None. RESULT: Findings: Severe narrowing of the first metacarpal carpal joint. Marked bony demineralization. There are erosive changes in the distal end of the middle phalanx of the index finger proximal end of the middle phalanx third digit distal end of the proximal phalanx of the third digit Bone density appears well-preserved. No fractures or dislocations are seen. Supporting Subjective Information Below: Past Medical History: PAST MEDICAL HISTORY Diagnosis Date Arthritis neck, back, hands Essential hypertension Hypertrophy of prostate with urinary obstruction Past Surgical History: PAST SURGICAL HISTORY Procedure Laterality Date ARTHRODESIS CMC JNT THUMB W/WO FIX Left Family History: FAMILY HISTORY Problem Relation Age of Onset Pancreatic Cancer Sister other (heart bypass) Brother Diabetes Brother Social History: Social History Tobacco Use Smoking status: Never Smokeless tobacco: Never Substance Use Topics Alcohol use: Yes Comment: Ocassionally - wine Drug use: Never Medications: Current Outpatient Medications Medication Sig amLODIPine (NORVASC) 5 mg tablet Take 5 mg by mouth once daily. atenolol (TENORMIN) 25 mg tablet Take 25 mg by mouth once daily. citalopram hydrobromide (CELEXA) 10 mg tablet Take 10 mg by mouth once daily. diclofenac (VOLTAREN) 1 % topical gel Apply 2 g to affected area as needed. finasteride (PROSCAR) 5 mg tablet meloxicam (MOBIC) 15 mg tablet Take 15 mg by mouth as needed. mometasone (ELOCON) 0.1 % cream Apply 1 g to af (more content not included)... [facility] 03-08-2023 Note HNO ID: [id number] Author: Mitesh Mitchell, Service: ? Author Type: Physician Type: Progress Notes Filed: 03/08/2023 1:39 PM Note Text: UNIVERSAL PROTOCOL / SAFETY CHECKLIST Procedure to be Performed: EMG Sign In: A Moment of CARE was completed. Personnel directly involved with the procedure wore the appropriate PPE (Personal Protective Equipment). Patient/Surrogate Stated/Verified: PATIENT VERIFIED(optional for EMERGENT procedures): Patient name, Date of , Relevant allergies, and The intended procedure Time Out Communication: Intended patient and procedure match the source documents. Correct side/site marked and visible. Sign Out: SIGN OUT (optional for EMERGENT procedures): Post-procedure follow-up management communicated and Plan of Care Visit completed when applicable. MARIOLA Beth DO [facility] 02-28-2023 Note HNO ID: [id number] Author: Gabrielle Benton PA-C Service: ? Author Type: Physician Social Services Designee Type: Progress Notes Filed: 03/01/2023 1:43 PM Note Text: Gabrielle Benton PA-C Department of Orthopaedics Orthopaedics [address] [address] Dept: [phone] February 28, 2023 SUBJECTIVE: CHIEF COMPLAINT: New, Pain, and Numbness of the Right Hand HPI: Mr. Robin Delarosa is a 67 year old right hand dominant male. He presents today with right hand pain and numbness that has been present for years. Today he rates his pain a 2 on a scale of 0 to 10 at rest. The pain is worse with activity. He has had pain in his right thumb for years. He describes the pain as dull/achy at rest and sharp with activity. He has had intermittent numbness/tingling in his right hand digits 1-4 intermittently for the past few years. He notes over the past month his numbness has gotten significantly worse. His numbness is worse with gripping, driving, writing and at night. He takes tylenol and meloxicam for chronic back pain. 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 He has previously undergone left thumb cmc arthroplasty more than 10 years ago. Past Medical History: History reviewed. No pertinent past medical history. Past Surgical History: History reviewed. No pertinent surgical history. Family History: History reviewed. No pertinent family history. Social History: Social History Tobacco Use Smoking status: Never Smokeless tobacco: Never Medications: Current Outpatient Medications Medication Sig amLODIPine (NORVASC) 5 mg tablet Take 5 mg by mouth once daily. atenolol (TENORMIN) 25 mg tablet Take 25 mg by mouth once daily. citalopram hydrobromide (CELEXA) 10 mg tablet Take 10 mg by mouth once daily. diclofenac (VOLTAREN) 1 % topical gel Apply 2 g to affected area as needed. finasteride (PROSCAR) 5 mg tablet meloxicam (MOBIC) 15 mg tablet Take 15 mg by mouth as needed. mometasone (ELOCON) 0.1 % cream Apply 1 g to affected area as needed. omeprazole (PRILOSEC) 20 mg capsule Take 20 mg by mouth once daily. pravastatin (PRAVACHOL) 20 mg tablet Take 20 mg by mouth once daily. rizatriptan (MAXALT) 10 mg tablet Take 10 mg by mouth as needed. Terazosin HCl (HYTRIN) 10 mg capsule Take 10 mg by mouth once daily. Valsartan-hydroCHLOROthiazide 320-12.5 mg per tablet Take 1 tablet by mouth once daily. No current facility-administered medications for this visit. Allergies: Patient has no allergy information on record. ROS: General: negative for fatigue, malaise, weight loss/gain Musculoskeletal: see HPI Psych: no depression, anxiety OBJECTIVE: Mr. Robin Delarosa is a pleasant 67 year old in no apparent distress. Gen:Ht 5' 10.25 (1.78m) Wt 184 lb 8.4 oz (83.7kg) BMI 26.30 kg/(m2). nl development, non obese, no deformities ENT: Normocephalic, normal hearing, moist mucosa CV: Pulses:Radial= 2+ and symmetric, capillary refill < 2 secs, no peripheral edema/varicosities Skin: no rash, bruising or lesions. Good turgor. Psych: cooperative and appropriate, alert and oriented x 3, good mood and affect. Musculoskeletal: RT thumb with minimal swelling at the base. mild tenderness to palpation at the dorsal capsule with minimal crepitance. Painful grind test. Good motion at the MCP and PIP, no locking or catching. MCP with hyperextension. Median, radial and ulnar nerves are intact. Non-tender first dorsal compartment with a negative Antonio's test. There is not evidence of thenar wasting. Decreased sensation on palmar aspect of digits 1-4 Phalen's: postive Tinel's: negative IMAGIN03/01/2023 1:15 PM - Radiology, Oru In Impression IMPRESSION: Findings as discussed under Results portion of report. Manager Multimedia: ALEJANDRO Transcribe Date/Time: Mar 01 2023 1:12P Dictated by : MELISSA MCARTHUR DO This examination was interpreted and the report reviewed and electronically signed by: MELISSA MCARTHUR DO on Mar 01 2023 1:13PM EST Results-Findings * * *Final Report* * * DATE OF EXAM: Feb 28 2023 9:16AM SHANDRA 5346 - XR HAND 3V PA/LAT/OBL RT / PROCEDURE REASON: [id number] * * * * Physician Interpretation * * * * EXAM(s): XR HAND 3V PA/LAT/OBL RT EXAM DATE/TIME: 02/28/2023 9:16 AM HISTORY: 67 years old Clinical information: Pain numbness and tingling has gotten worse the last month TECHNIQUE: Images: XR HAND 3V PA/LAT/OBL RT Comparison: None. RESULT: Findings: Severe narrowing of the first metacarpal carpal joint. Marked bony demineralization. There are erosive changes in the distal end of the middle phalanx of the index finger proximal end of the middle phalanx third digit distal end of the proximal phalanx of the third digit Bone density appears well-preserved. No fractures or dislocations are seen. ASSESSMENT: M19.049 CMC arthritis (primary encounter diagnosis) R20 (more content not included)... [facility] 02-28-2023 Note HNO ID: [id number] Author: Yola Elkins CT Service: Radiology Author Type: Technologist Type: Progress Notes Filed: 02/28/2023 9:17 AM Note Text: Radiology Service Progress Note PATIENT NAME: Robin Delarosa DATE OF SERVICE: February 28, 2023 TIME: 9:17 AM PATIENT IDENTITY VERIFICATION COMPLETED USING TWO (2) IDENTIFIERS: Name and Date of confirmed by patient verbally. FALL SCREENING: Has the patient had 2 falls in the last year or 1 fall with injury or currently using an Ambulatory Assistive Device (Walker, Cane, Wheelchair, Crutches, etc.)? No PATIENT GENDER DATA: Male PATIENT RELEVANT IMPLANT DATA REVIEWED: Not Applicable RADIOLOGY DEPARTMENT: General X-ray: Exam(s) Completed: Upper Extremity X-Ray(s): Hand, right PERIPHERAL IV DATA: Not applicable SIGNED BY: CAT Thakkar February 28, 2023 9:17 AM [facility] 02-28-2023 History of Present illness Narrative Gabrielle Benton PA-C Department of Orthopaedics Orthopaedics [address] [address] Dept: [phone] February 28, 2023 SUBJECTIVE: CHIEF COMPLAINT: New, Pain, and Numbness of the Right Hand HPI: Mr. Robin Delarosa is a 67 year old right hand dominant male. He presents today with right hand pain and numbness that has been present for years. Today he rates his pain a 2 on a scale of 0 to 10 at rest. The pain is worse with activity. He has had pain in his right thumb for years. He describes the pain as dull/achy at rest and sharp with activity. He has had intermittent numbness/tingling in his right hand digits 1-4 intermittently for the past few years. He notes over the past month his numbness has gotten significantly worse. His numbness is worse with gripping, driving, writing and at night. He takes tylenol and meloxicam for chronic back pain. 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 He has previously undergone left thumb cmc arthroplasty more than 10 years ago. Past Medical History: History reviewed. No pertinent past medical history. Past Surgical History: History reviewed. No pertinent surgical history. Family History: History reviewed. No pertinent family history. Social History: Social History Tobacco Use Smoking status: Never Smokeless tobacco: Never Medications: Current Outpatient Medications Medication Sig amLODIPine (NORVASC) 5 mg tablet Take 5 mg by mouth once daily. atenolol (TENORMIN) 25 mg tablet Take 25 mg by mouth once daily. citalopram hydrobromide (CELEXA) 10 mg tablet Take 10 mg by mouth once daily. diclofenac (VOLTAREN) 1 % topical gel Apply 2 g to affected area as needed. finasteride (PROSCAR) 5 mg tablet meloxicam (MOBIC) 15 mg tablet Take 15 mg by mouth as needed. mometasone (ELOCON) 0.1 % cream Apply 1 g to affected area as needed. omeprazole (PRILOSEC) 20 mg capsule Take 20 mg by mouth once daily. pravastatin (PRAVACHOL) 20 mg tablet Take 20 mg by mouth once daily. rizatriptan (MAXALT) 10 mg tablet Take 10 mg by mouth as needed. Terazosin HCl (HYTRIN) 10 mg capsule Take 10 mg by mouth once daily. Valsartan-hydroCHLOROthiazide 320-12.5 mg per tablet Take 1 tablet by mouth once daily. No current facility-administered medications for this visit. Allergies: Patient has no allergy information on record. ROS: General: negative for fatigue, malaise, weight loss/gain Musculoskeletal: see HPI Psych: no depression, anxiety OBJECTIVE: Mr. Robin Delarosa is a pleasant 67 year old in no apparent distress. Gen:Ht 5' 10.25 (1.78m) Wt 184 lb 8.4 oz (83.7kg) BMI 26.30 kg/(m^2). nl development, non obese, no deformities ENT: Normocephalic, normal hearing, moist mucosa CV: Pulses:Radial= 2+ and symmetric, capillary refill < 2 secs, no peripheral edema/varicosities Skin: no rash, bruising or lesions. Good turgor. Psych: cooperative and appropriate, alert and oriented x 3, good mood and affect. Musculoskeletal: RT thumb with minimal swelling at the base. mild tenderness to palpation at the dorsal capsule with minimal crepitance. Painful grind test. Good motion at the MCP and PIP, no locking or catching. MCP with hyperextension. Median, radial and ulnar nerves are intact. Non-tender first dorsal compartment with a negative Antonio's test. There is not evidence of thenar wasting. Decreased sensation on palmar aspect of digits 1-4 Phalen's: postive Tinel's: negative IMAGIN03/01/2023 1:15 PM - Radiology, [place] In Impression IMPRESSION: Findings as discussed under Results portion of report. Manager Multimedia: ALEJANDRO Transcribe Date/Time: Mar 01 2023 1:12P Dictated by : MELISSA MCARTHUR DO This examination was interpreted and the report reviewed and electronically signed by: MELISSA MCARTHUR DO on Mar 01 2023 1:13PM EST Results-Findings * * *Final Report* * * DATE OF EXAM: Feb 28 2023 9:16AM SHANDRA [id number] - XR HAND 3V PA/LAT/OBL RT / PROCEDURE REASON: [id number] * * * * Physician Interpretation * * * * EXAM(s): XR HAND 3V PA/LAT/OBL RT EXAM DATE/TIME: 02/28/2023 9:16 AM HISTORY: 67 years old Clinical information: Pain numbness and tingling has gotten worse the last month TECHNIQUE: Images: XR HAND 3V PA/LAT/OBL RT Comparison: None. RESULT: Findings: Severe narrowing of the first metacarpal carpal joint. Marked bony demineralization. There are erosive changes in the distal end of the middle phalanx of the index finger proximal end of the middle phalanx third digit distal end of the proximal phalanx of the third digit Bone density appears well-preserved. No fractures or dislocations are seen. ASSESSMENT: M19.049 CMC arthritis (primary encounter diagnosis) R20.9 Disturbance of skin sensation PLAN: Reviewed images taken today. Discussed treatment options for CMC arthritis and carpal tunnel including corticosteroid injections and surgical options. Patient is interested in surgery and declines carpal tunnel injection today. EMG for surgical planning ordered today. Patient will schedule follow up with Dr. Fry to discuss surgical options. FOLLOW UP INSTRUCTIONS: Dr. Fry surgical consult Gabrielle Benton PA-C documented in this encounter [facility] 02-28-2023 History of Present illness Narrative Radiology Service Progress Note PATIENT NAME: Robin Delarosa DATE OF SERVICE: February 28, 2023 TIME: 9:17 AM PATIENT IDENTITY VERIFICATION COMPLETED USING TWO (2) IDENTIFIERS: Name and Date of confirmed by patient verbally. FALL SCREENING: Has the patient had 2 falls in the last year or 1 fall with injury or currently using an Ambulatory Assistive Device (Walker, Cane, Wheelchair, Crutches, etc.)? No PATIENT GENDER DATA: Male PATIENT RELEVANT IMPLANT DATA REVIEWED: Not Applicable RADIOLOGY DEPARTMENT: General X-ray: Exam(s) Completed: Upper Extremity X-Ray(s): Hand, right PERIPHERAL IV DATA: Not applicable SIGNED BY: CAT Thakkar February 28, 2023 9:17 AM documented in this encounter [facility] 12-05-2022 Note HNO ID: [id number] Author: Elvis Monzon PT Service: ? Author Type: Physical Therapist Type: Progress Notes Filed: 12/05/2022 10:06 AM Note Text: Episode Visit Count: 11 Therapist That Will Accept/Oversee The Plan Of Care: Elvis Monzon Start of Care Date: 09/27/22 Onset Date: 08/31/22 Plan of Care Certification Date: 11/21/22 Next Certification Due Date: 01/22/23 [facility] PHYSICAL THERAPY TREATMENT NOTE ASSESSMENT: Robin Delarosa tolerated the session with decreased symptoms. He demonstrated improvements in back pain with manual techniques and continued HEP. The patient will continue to benefit from ongoing skilled physical therapy to progress toward set goals. PLAN FOR NEXT VISIT: LA SUBJECTIVE: Patient stiff and sore today, laid a bunch of pavers yesterday Pain: Pain Pain Level: 4 Pain Location: Back Description: Tightness, Sore Frequency: Continuous OBJECTIVE MEASURES WITH LEVEL OF FUNCTION: Spine Observations R Lumbar Spine Palpation Tenderness: Paraspinals L Lumbar Spine Palpation Tenderness: Paraspinals TREATMENT: Manual Therapy: 1: STM and CFM to B thoracic and lumbar paraspinals with push to tolerance until symptoms subside 2: Manual lumbar belt traction with feet on stool x 15 min with pull to tolerance Skilled Intervention: Manual skills to improve joint mobility, ROM, and decrease pain. Utilized anatomy knowledge of the therapist, and assessment of patient's response to intervention. Billing Manual TherapyTreatment Minutes: 40 Total Treatment Time Minutes (timed/untimed): 40 Session Start Time : 1230 Session Stop Time : 1310 Elvis Monzon PT [facility] 12-05-2022 History of Present illness Narrative Episode Visit Count: 11 Therapist That Will Accept/Oversee The Plan Of Care: Elvis Monzon Start of Care Date: 09/27/22 Onset Date: 08/31/22 Plan of Care Certification Date: 11/21/22 Next Certification Due Date: 01/22/23 REHABIL[facility]ATION AND SPORTS THERAPY PHYSICAL THERAPY TREATMENT NOTE ASSESSMENT: Robin Delarosa tolerated the session with decreased symptoms. He demonstrated improvements in back pain with manual techniques and continued HEP. The patient will continue to benefit from ongoing skilled physical therapy to progress toward set goals. PLAN FOR NEXT VISIT: LA SUBJECTIVE: Patient stiff and sore today, laid a bunch of pavers yesterday Pain: Pain Pain Level: 4 Pain Location: Back Description: Tightness, Sore Frequency: Continuous OBJECTIVE MEASURES WITH LEVEL OF FUNCTION: Spine Observations R Lumbar Spine Palpation Tenderness: Paraspinals L Lumbar Spine Palpation Tenderness: Paraspinals TREATMENT: Manual Therapy: 1: STM and CFM to B thoracic and lumbar paraspinals with push to tolerance until symptoms subside 2: Manual lumbar belt traction with feet on stool x 15 min with pull to tolerance Skilled Intervention: Manual skills to improve joint mobility, ROM, and decrease pain. Utilized anatomy knowledge of the therapist, and assessment of patient's response to intervention. Billing Manual TherapyTreatment Minutes: 40 Total Treatment Time Minutes (timed/untimed): 40 Session Start Time : 1230 Session Stop Time : 1310 Elvis Monzon PT documented in this encounter [facility] 12-03-2022 Note HNO ID: [id number] Author: Elvis Monzon PT Service: ? Author Type: Physical Therapist Type: Progress Notes Filed: 12/03/2022 1:09 PM Note Text: Episode Visit Count: 10 Therapist That Will Accept/Oversee The Plan Of Care: Elvis Monzon Start of Care Date: 09/27/22 Onset Date: 08/31/22 Plan of Care Certification Date: 11/21/22 Next Certification Due Date: 01/22/23 REHABILITATION AND SPORTS THERAPY PHYSICAL THERAPY TREATMENT NOTE ASSESSMENT: Robin Delarosa tolerated the session with decreased symptoms. He demonstrated difficulty with prolonged work tasks. The patient will continue to benefit from ongoing skilled physical therapy to progress toward set goals. PLAN FOR NEXT VISIT: Continue manual as needed, progress exercises if appropriate SUBJECTIVE: Pt has some referred pain into the hip and in the mid back today Pain: Pain Pain Level: 2 Pain Location: Hip - Right, Thoracic Spine Description: Tightness, Sore Frequency: Continuous OBJECTIVE MEASURES WITH LEVEL OF FUNCTION: Tenderness to below noted areas TREATMENT: Manual Therapy: 1: STM to R glute med and min, mid thoracic paraspinals with push to tolerance Skilled Intervention: Manual skills to improve joint mobility, ROM, and decrease pain. Utilized anatomy knowledge of the therapist, and assessment of patient's response to intervention. Billing Manual TherapyTreatment Minutes: 32 Total Treatment Time Minutes (timed/untimed): 32 Session Start Time : 1230 Session Stop Time : 1302 Elvis Monzon PT [facility] 12-03-2022 History of Present illness Narrative Episode Visit Count: 10 Therapist That Will Accept/Oversee The Plan Of Care: Elvis Monzon Start of Care Date: 09/27/22 Onset Date: 08/31/22 Plan of Care Certification Date: 11/21/22 Next Certification Due Date: 01/22/23 REHABILITATION AND SPORTS THERAPY PHYSICAL THERAPY TREATMENT NOTE ASSESSMENT: Robin Delarosa tolerated the session with decreased symptoms. He demonstrated difficulty with prolonged work tasks. The patient will continue to benefit from ongoing skilled physical therapy to progress toward set goals. PLAN FOR NEXT VISIT: Continue manual as needed, progress exercises if appropriate SUBJECTIVE: Pt has some referred pain into the hip and in the mid back today Pain: Pain Pain Level: 2 Pain Location: Hip - Right, Thoracic Spine Description: Tightness, Sore Frequency: Continuous OBJECTIVE MEASURES WITH LEVEL OF FUNCTION: Tenderness to below noted areas TREATMENT: Manual Therapy: 1: STM to R glute med and min, mid thoracic paraspinals with push to tolerance Skilled Intervention: Manual skills to improve joint mobility, ROM, and decrease pain. Utilized anatomy knowledge of the therapist, and assessment of patient's response to intervention. Billing Manual TherapyTreatment Minutes: 32 Total Treatment Time Minutes (timed/untimed): 32 Session Start Time : 1230 Session Stop Time : 1302 Elvis Monzon PT documented in this encounter [facility] 11-26-2022 Note HNO ID: [id number] Author: Elvis Monzon PT Service: ? Author Type: Physical Therapist Type: Progress Notes Filed: 11/25/2022 11:05 PM Note Text: Episode Visit Count: 9 Therapist That Will Accept/Oversee The Plan Of Care: Elvis Monzon Start of Care Date: 09/27/22 Onset Date: 08/31/22 Plan of Care Certification Date: 11/21/22 Next Certification Due Date: 01/22/23 REHABILITATION AND SPORTS THERAPY PHYSICAL THERAPY PROGRESS REPORT PLAN OF CARE UPDATE: Assessment: Robin Delarosa demonstrates moderate improvement in standing, walking, bending, heavy exertion, lifting, physical activities, recreational activities, working, reaching behind back, reaching overhead, and use hand with arm at shoulder level. He has progressed toward goals. Patient continues to present with impairments in overall function, strength, symptom management, and tissue tenderness that interfere with heavy exertion, lifting, physical activities, recreational activities . Current prognosis is Good due to: current objective clinical presentation, good overall health status, acuteness of condition, positive past response to therapy, within-session changes, good support system/ coping skills . He will benefit from continued skilled therapy services to meet the updated goals for this plan of care as noted below. Goals updated on 11/21/2022. Goals for Episode of Care: created on 09/27/22 through 12/29/22 [place] in home exercise program. Met, on-going Patient will decrease pain rating by 2 points to meet minimal clinical important difference for numeric pain rating scale. Met for shoulder, not met for back Patient will increase active ROM of R shoulder and lumbar spine to WNL to allow pt to to improve performance of ADLs. Met for shoulder, not for back Patient will demonstrate increase in R shoulder and core/trunk strength to 5/5 during manual muscle testing in order to improve function for basic self-care tasks, home management tasks, leisure / recreation skills, and prior functional tasks. Met for shoulder, not for trunk Perform reaching, lifting, and driving horses with decreased report of symptoms/pain in 6-8 weeks. Met for shoulder, not for back Perform self care without pain. Met Shoulder goals will be discharged, with focus solely on back now Planned Interventions, Frequency, and Duration: 1x/week, 4 weeks Total Number of Visits Planned: 4 Patient to be seen for Therapeutic exercise (13116), Neuromuscular re-education (48961), Manual therapy (90345), Therapeutic activities (09587), Self-long-term management (28277), Patient/Family/Caregiver Education, Body Mechanics Training PLAN FOR NEXT VISIT: Continue manual for back, core strengthening SUBJECTIVE: Patient Reason for Visit: Pt's shoulder feels good, no limitations and rarely pain. Back remains the issue. Notes strength is coming, but slowly. Functional Limitations: heavy exertion, lifting, physical activities, recreational activities Pain: Pain Pain Level: 2 Pain Location: Back Description: Sore Frequency: Intermittent PROMIS Scales Higher is Better 10/31/2022 09/26/2022 Phys Func - Score 49 (within normal limits) 47 (within normal limits) Phys Func - Percentile 46 % 38 % Self-Eff Symptom - Score 51 (Average) 48 (Average) Self-Eff Symptom - Percentile 54 % 42 % T-scores: mean of general population = 50. 5 points is clinically meaningfully difference Percentiles provide an indication of how the patient's score ranks in relation to the general population. Higher percentile rankings indicate better function/quality of life. 50th percentile is the average of the general population and indicates half of respondents had a worse score. OBJECTIVE MEASURES WITH LEVEL OF FUNCTION: Shoulder Observations R Shoulder Palpation Tenderness Comments: None Spine Observations R Lumbar Spine Palpation Tenderness: Paraspinals, Quadratus Lumborum L Lumbar Spine Palpation Tenderness: Paraspinals, Quadratus Lumborum Lumbar Spine AROM Lumbar Flexion: Normal Lumbar Extension: Minimal limitation Lumbar R Side-Bend: Minimal limitation Lumbar L Side-Bend: Minimal limitation Lumbar R Rotation: Normal Lumbar L Rotation: Normal LE Strength Trunk Strength: 4/5 TREATMENT: Therapeutic Exercise: 1: *Supine lying on vertical towel roll x5 min 2: *Supine lying on Horizontal towel roll x3 min 3: *Seated thoracic extensions 3x10 Skilled Intervention: Patient was educated in proper exercise technique and purpose for exercises. Skilled judgment was provided in selection of appropriate interventions. Provided written instruction for home exercise program to facilitate proper performance and compliance. Correct performance of therapeutic exercises was facilitated with verbal, visual, and tactile cuing. Manual Therapy: 1: STM to thoracic and lumbar paraspinals with push to tolerance Skilled Intervention: Manual skills to (more content not included)... [facility] 11-25-2022 History of Present illness Narrative Episode Visit Count: 9 Therapist That Will Accept/Oversee The Plan Of Care: Elvis Monzon Start of Care Date: 09/27/22 Onset Date: 08/31/22 Plan of Care Certification Date: 11/21/22 Next Certification Due Date: 01/22/23 REHABILITATION AND SPORTS THERAPY PHYSICAL THERAPY PROGRESS REPORT PLAN OF CARE UPDATE: Assessment: Robin Delarosa demonstrates moderate improvement in standing, walking, bending, heavy exertion, lifting, physical activities, recreational activities, working, reaching behind back, reaching overhead, and use hand with arm at shoulder level. He has progressed toward goals. Patient continues to present with impairments in overall function, strength, symptom management, and tissue tenderness that interfere with heavy exertion, lifting, physical activities, recreational activities . Current prognosis is Good due to: current objective clinical presentation, good overall health status, acuteness of condition, positive past response to therapy, within-session changes, good support system/ coping skills . He will benefit from continued skilled therapy services to meet the updated goals for this plan of care as noted below. Goals updated on 11/21/2022. Goals for Episode of Care: created on 09/27/22 through 12/29/22 [place] in home exercise program. Met, on-going Patient will decrease pain rating by 2 points to meet minimal clinical important difference for numeric pain rating scale. Met for shoulder, not met for back Patient will increase active ROM of R shoulder and lumbar spine to WNL to allow pt to to improve performance of ADLs. Met for shoulder, not for back Patient will demonstrate increase in R shoulder and core/trunk strength to 5/5 during manual muscle testing in order to improve function for basic self-care tasks, home management tasks, leisure / recreation skills, and prior functional tasks. Met for shoulder, not for trunk Perform reaching, lifting, and driving horses with decreased report of symptoms/pain in 6-8 weeks. Met for shoulder, not for back Perform self care without pain. Met Shoulder goals will be discharged, with focus solely on back now Planned Interventions, Frequency, and Duration: 1x/week, 4 weeks Total Number of Visits Planned: 4 Patient to be seen for Therapeutic exercise (38395), Neuromuscular re-education (67345), Manual therapy (42119), Therapeutic activities (42656), Self-long-term management (22477), Patient/Family/Caregiver Education, Body Mechanics Training PLAN FOR NEXT VISIT: Continue manual for back, core strengthening SUBJECTIVE: Patient Reason for Visit: Pt's shoulder feels good, no limitations and rarely pain. Back remains the issue. Notes strength is coming, but slowly. Functional Limitations: heavy exertion, lifting, physical activities, recreational activities Pain: Pain Pain Level: 2 Pain Location: Back Description: Sore Frequency: Intermittent PROMIS Scales Higher is Better 10/31/2022 09/26/2022 Phys Func - Score 49 (within normal limits) 47 (within normal limits) Phys Func - Percentile 46 % 38 % Self-Eff Symptom - Score 51 (Average) 48 (Average) Self-Eff Symptom - Percentile 54 % 42 % T-scores: mean of general population = 50. 5 points is clinically meaningfully difference Percentiles provide an indication of how the patient's score ranks in relation to the general population. Higher percentile rankings indicate better function/quality of life. 50th percentile is the average of the general population and indicates half of respondents had a worse score. OBJECTIVE MEASURES WITH LEVEL OF FUNCTION: Shoulder Observations R Shoulder Palpation Tenderness Comments: None Spine Observations R Lumbar Spine Palpation Tenderness: Paraspinals, Quadratus Lumborum L Lumbar Spine Palpation Tenderness: Paraspinals, Quadratus Lumborum Lumbar Spine AROM Lumbar Flexion: Normal Lumbar Extension: Minimal limitation Lumbar R Side-Bend: Minimal limitation Lumbar L Side-Bend: Minimal limitation Lumbar R Rotation: Normal Lumbar L Rotation: Normal LE Strength Trunk Strength: 4/5 TREATMENT: Therapeutic Exercise: 1: *Supine lying on vertical towel roll x5 min 2: *Supine lying on Horizontal towel roll x3 min 3: *Seated thoracic extensions 3x10 Skilled Intervention: Patient was educated in proper exercise technique and purpose for exercises. Skilled judgment was provided in selection of appropriate interventions. Provided written instruction for home exercise program to facilitate proper performance and compliance. Correct performance of therapeutic exercises was facilitated with verbal, visual, and tactile cuing. Manual Therapy: 1: STM to thoracic and lumbar paraspinals with push to tolerance Skilled Intervention: Manual skills to improve joint mobility, ROM, and decrease pain. Utilized anatomy knowledge of the therapist, and assessment of patient's response to intervention. Billing Therapeutic Exercise Treatment Minutes: 15 Manual TherapyTreatment Minutes: 23 Total Treatment Time Minutes (timed/untimed): 38 Session Start Time : 1305 Session Stop Time : 1343 Elvis Monzon PT documented in this encounter [facility] 11-15-2022 Note HNO ID: [id number] Author: Elvis Monzon PT Service: ? Author Type: Physical Therapist Type: Progress Notes Filed: 11/15/2022 3:56 PM Note Text: Episode Visit Count: 8 Therapist That Will Accept/Oversee The Plan Of Care: Elvis Monzon Start of Care Date: 09/27/22 Onset Date: 08/31/22 Plan of Care Certification Date: 09/27/22 Next Certification Due Date: 11/27/22 REHABILITATION AND SPORTS THERAPY PHYSICAL THERAPY TREATMENT NOTE ASSESSMENT: Robin Delarosa tolerated the session with fatigue, expected muscle soreness, and no issues. He demonstrated improvements in activity tolerance and strengthening for trunk/core. The patient will continue to benefit from ongoing skilled physical therapy to progress toward set goals. PLAN FOR NEXT VISIT: [place] SUBJECTIVE: Patient Reason for Visit: Pt continues to do a little better. Getting an injection next week in the back Pain: Pain Pain Level: 0 Pain Location: Back Frequency: Intermittent OBJECTIVE MEASURES WITH LEVEL OF FUNCTION: TREATMENT: Therapeutic Exercise: 1: SKC 3x30 sec on R 2: *Supine alt leg extensions 2x10/side 6: Lateral stepping at Hoist 1 plate plus 1 round x 10 each direction 7: Retrowalking at Hoist x 10 rounds 1 plate plus 1 round 8: Pull downs at Hoist 2 plate plus 2 round 2x10 Skilled Intervention: Patient was educated in proper exercise technique and purpose for exercises. Skilled judgment was provided in selection of appropriate interventions. Provided written instruction for home exercise program to facilitate proper performance and compliance. Correct performance of therapeutic exercises was facilitated with verbal, visual, and tactile cuing. Billing Therapeutic Exercise Treatment Minutes: 30 Total Treatment Time Minutes (timed/untimed): 30 Session Start Time : 1345 Session Stop Time : 1415 Elvis Monzon PT [facility] 11-15-2022 History of Present illness Narrative Episode Visit Count: 8 Therapist That Will Accept/Oversee The Plan Of Care: Elvis Monzon Start of Care Date: 09/27/22 Onset Date: 08/31/22 Plan of Care Certification Date: 09/27/22 Next Certification Due Date: 11/27/22 [facility]TS [facility]ER[facility]Y PHYSICAL THERAPY TREATMENT NOTE ASSESSMENT: Robin Delarosa tolerated the session with fatigue, expected muscle soreness, and no issues. He demonstrated improvements in activity tolerance and strengthening for trunk/core. The patient will continue to benefit from ongoing skilled physical therapy to progress toward set goals. PLAN FOR NEXT VISIT: [place] SUBJECTIVE: Patient Reason for Visit: Pt continues to do a little better. Getting an injection next week in the back Pain: Pain Pain Level: 0 Pain Location: Back Frequency: Intermittent OBJECTIVE MEASURES WITH LEVEL OF FUNCTION: TREATMENT: Therapeutic Exercise: 1: SKC 3x30 sec on R 2: *Supine alt leg extensions 2x10/side 6: Lateral stepping at Hoist 1 plate plus 1 round x 10 each direction 7: Retrowalking at Hoist x 10 rounds 1 plate plus 1 round 8: Pull downs at [facility] 2 plate plus 2 round 2x10 Skilled Intervention: Patient was educated in proper exercise technique and purpose for exercises. Skilled judgment was provided in selection of appropriate interventions. Provided written instruction for home exercise program to facilitate proper performance and compliance. Correct performance of therapeutic exercises was facilitated with verbal, visual, and tactile cuing. Billing Therapeutic Exercise Treatment Minutes: 30 Total Treatment Time Minutes (timed/untimed): 30 Session Start Time : 1345 Session Stop Time : 1415 Elvis Monzon PT documented in this encounter [facility] 11-07-2022 Note HNO ID: [id number] Author: Mignon Serrano PT Service: ? Author Type: Physical Therapist Type: Progress Notes Filed: 11/07/2022 4:33 PM Note Text: Episode Visit Count: 7 Therapist That Will Accept/Oversee The Plan Of Care: Elvis Monzon Start of Care Date: 09/27/22 Onset Date: 08/31/22 Plan of Care Certification Date: 09/27/22 Next Certification Due Date: 11/27/22 Patient Identified by Name and Date of : Yes REHABILITATION AND SPORTS THERAPY PHYSICAL THERAPY TREATMENT NOTE ASSESSMENT: Robin Delarosa tolerated the session with fatigue and expected muscle soreness. He demonstrated improvements in tolerance to core stability and strengthening. The patient will continue to benefit from ongoing skilled physical therapy to progress toward set goals. PLAN FOR NEXT VISIT: Asses response to [facility] maching exercises. Continue with core strengthening, possibly consider seated on physioball for core exercises. SUBJECTIVE: Patient Reason for Visit: Pt states that his back is not too bad today, hasn't done much to agggrevate it. Exercises are going well. Pain: Pain Pain Level: 0 Pain Location: Back Frequency: Intermittent Post Treatment Pain Post Treatment Pain Level: 0 Post Treatment Pain Location: Low Back/Lumbar Spine- Midline OBJECTIVE MEASURES WITH LEVEL OF FUNCTION: Good form with lateral and retro-walking at [facility]. TREATMENT: Therapeutic Exercise: 1: SKC 3x30 sec on R 2: TA bracing with alt hip hikes 3x10/side 3: Hook lying TA bracing with BTB pull overs 3x10 each directions 4: PuTB pallof press 3x10/side 5: PuTB stir the pot 2x10/side cw/ccw 6: Lateral stepping at [facility] 1 plate plus 1 round x 8 each direction 7: Retrowalking at [facility] x 8 rounds 1 plate plus 1 round 8: Pull downs at [facility] 1 plate plus 4 round 2x10 Skilled Intervention: Patient was educated in proper exercise technique and purpose for exercises. Skilled judgment was provided in selection of appropriate interventions. Correct performance of therapeutic exercises was facilitated with verbal and visual cuing. Manual Therapy: 1: Manual lumbar belt traction x10 min feet on stool Skilled Intervention: Manual skills to improve joint mobility, ROM, and decrease pain. Utilized anatomy knowledge of the therapist, and assessment of patient's response to intervention. Billing Therapeutic Exercise Treatment Minutes: 35 Manual TherapyTreatment Minutes: 10 Total Treatment Time Minutes (timed/untimed): 45 MALA Forde, PT [facility] 11-07-2022 History of Present illness Narrative Episode Visit Count: 7 Therapist That Will Accept/Oversee The Plan Of Care: Elvis Monzon Start of Care Date: 09/27/22 Onset Date: 08/31/22 Plan of Care Certification Date: 09/27/22 Next Certification Due Date: 11/27/22 Patient Identified by Name and Date of : Yes REHABILITATION AND SPORTS THERAPY PHYSICAL THERAPY TREATMENT NOTE ASSESSMENT: Robin Dlearosa tolerated the session with fatigue and expected muscle soreness. He demonstrated improvements in tolerance to core stability and strengthening. The patient will continue to benefit from ongoing skilled physical therapy to progress toward set goals. PLAN FOR NEXT VISIT: Asses response to [facility] maching exercises. Continue with core strengthening, possibly consider seated on physioball for core exercises. SUBJECTIVE: Patient Reason for Visit: Pt states that his back is not too bad today, hasn't done much to agggrevate it. Exercises are going well. Pain: Pain Pain Level: 0 Pain Location: Back Frequency: Intermittent Post Treatment Pain Post Treatment Pain Level: 0 Post Treatment Pain Location: Low Back/Lumbar Spine- Midline OBJECTIVE MEASURES WITH LEVEL OF FUNCTION: Good form with lateral and retro-walking at [facility]. TREATMENT: Therapeutic Exercise: 1: SKC 3x30 sec on R 2: TA bracing with alt hip hikes 3x10/side 3: Hook lying TA bracing with BTB pull overs 3x10 each directions 4: PuTB pallof press 3x10/side 5: PuTB stir the pot 2x10/side cw/ccw 6: Lateral stepping at Hoist 1 plate plus 1 round x 8 each direction 7: Retrowalking at Hoist x 8 rounds 1 plate plus 1 round 8: Pull downs at Hoist 1 plate plus 4 round 2x10 Skilled Intervention: Patient was educated in proper exercise technique and purpose for exercises. Skilled judgment was provided in selection of appropriate interventions. Correct performance of therapeutic exercises was facilitated with verbal and visual cuing. Manual Therapy: 1: Manual lumbar belt traction x10 min feet on stool Skilled Intervention: Manual skills to improve joint mobility, ROM, and decrease pain. Utilized anatomy knowledge of the therapist, and assessment of patient's response to intervention. Billing Therapeutic Exercise Treatment Minutes: 35 Manual TherapyTreatment Minutes: 10 Total Treatment Time Minutes (timed/untimed): 45 MALA Forde PT documented in this encounter [facility] 11-01-2022 Note HNO ID: [id number] Author: Elvis Monzon PT Service: ? Author Type: Physical Therapist Type: Progress Notes Filed: 11/01/2022 9:12 AM Note Text: Episode Visit Count: 6 Therapist That Will Accept/Oversee The Plan Of Care: Elvis Monzon Start of Care Date: 09/27/22 Onset Date: 08/31/22 Plan of Care Certification Date: 09/27/22 Next Certification Due Date: 11/27/22 Patient Identified by Name and Date of : Yes REHABILITATION AND SPORTS THERAPY PHYSICAL THERAPY TREATMENT NOTE ASSESSMENT: Robin Delarosa tolerated the session with fatigue, decreased symptoms, and expected muscle soreness. He demonstrated improvements in endurance with core strengthening and stabilization. The patient will continue to benefit from ongoing skilled physical therapy to progress toward set goals. PLAN FOR NEXT VISIT: Continue with core stabilization/strengthening in neutral spine. SUBJECTIVE: Patient Reason for Visit: Pt reports that his back is noit feeling too bad to start todya, hasn't gotten into anything today. Pt rpeorts his shoulder is fine. Pain: Pain Pain Level: 2 Pain Location: Back Description: Aching, Sore Frequency: Continuous Post Treatment Pain Post Treatment Pain Level: Better Post Treatment Pain Location: Low Back/Lumbar Spine- Midline OBJECTIVE MEASURES WITH LEVEL OF FUNCTION: Good posture noted with seated iso abs. TREATMENT: Therapeutic Exercise: 1: SKC 3x30 sec on R 2: TA bracing with alt hip hikes 2x10/side 3: Hook lying TA bracing with BTB pull overs 2x10 each directions 4: PuTB pallof press 3x10/side 5: PuTB stir the pot 2x10/side cw/ccw 6: Seated iso abs 5 second holds 2x10 7: *Seated iso abs with alt arms 2x10 B 8: *Seated iso abs with alt marching 2x10 B 9: *Seated iso abs , alt opposite UE with opposite LE 2x10 B Skilled Intervention: Patient was educated in proper exercise technique and purpose for exercises. Reviewed and educated patient on additions/changes for home exercise program as above (*). Skilled judgment was provided in selection of appropriate interventions. Correct performance of therapeutic exercises was facilitated with verbal and visual cuing. Manual Therapy: 1: Manual lumbar belt traction x10 min feet on stool Skilled Intervention: Manual skills to improve joint mobility, ROM, and decrease pain. Utilized anatomy knowledge of the therapist, and assessment of patient's response to intervention. Billing Therapeutic Exercise Treatment Minutes: 30 Manual TherapyTreatment Minutes: 10 Total Treatment Time Minutes (timed/untimed): 40 Traci Valle, POLYSOMNOGRAPHY TECHNICIAN Elvis Monzon, PT [facility] 11-01-2022 History of Present illness Narrative Episode Visit Count: 6 Therapist That Will Accept/Oversee The Plan Of Care: Elvis Monzon Start of Care Date: 09/27/22 Onset Date: 08/31/22 Plan of Care Certification Date: 09/27/22 Next Certification Due Date: 11/27/22 Patient Identified by Name and Date of : Yes REHABILITATION AND SPORTS THERAPY PHYSICAL THERAPY TREATMENT NOTE ASSESSMENT: Robin Delarosa tolerated the session with fatigue, decreased symptoms, and expected muscle soreness. He demonstrated improvements in endurance with core strengthening and stabilization. The patient will continue to benefit from ongoing skilled physical therapy to progress toward set goals. PLAN FOR NEXT VISIT: Continue with core stabilization/strengthening in neutral spine. SUBJECTIVE: Patient Reason for Visit: Pt reports that his back is noit feeling too bad to start todya, hasn't gotten into anything today. Pt rpeorts his shoulder is fine. Pain: Pain Pain Level: 2 Pain Location: Back Description: Aching, Sore Frequency: Continuous Post Treatment Pain Post Treatment Pain Level: Better Post Treatment Pain Location: Low Back/Lumbar Spine- Midline OBJECTIVE MEASURES WITH LEVEL OF FUNCTION: Good posture noted with seated iso abs. TREATMENT: Therapeutic Exercise: 1: SKC 3x30 sec on R 2: TA bracing with alt hip hikes 2x10/side 3: Hook lying TA bracing with BTB pull overs 2x10 each directions 4: PuTB pallof press 3x10/side 5: PuTB stir the pot 2x10/side cw/ccw 6: Seated iso abs 5 second holds 2x10 7: *Seated iso abs with alt arms 2x10 B 8: *Seated iso abs with alt marching 2x10 B 9: *Seated iso abs , alt opposite UE with opposite LE 2x10 B Skilled Intervention: Patient was educated in proper exercise technique and purpose for exercises. Reviewed and educated patient on additions/changes for home exercise program as above (*). Skilled judgment was provided in selection of appropriate interventions. Correct performance of therapeutic exercises was facilitated with verbal and visual cuing. Manual Therapy: 1: Manual lumbar belt traction x10 min feet on stool Skilled Intervention: Manual skills to improve joint mobility, ROM, and decrease pain. Utilized anatomy knowledge of the therapist, and assessment of patient's response to intervention. Billing Therapeutic Exercise Treatment Minutes: 30 Manual TherapyTreatment Minutes: 10 Total Treatment Time Minutes (timed/untimed): 40 MALA Forde PT documented in this encounter [facility] 10-26-2022 Note HNO ID: [id number] Author: Elvis Monzon PT Service: ? Author Type: Physical Therapist Type: Progress Notes Filed: 10/26/2022 3:05 PM Note Text: Episode Visit Count: 5 Therapist That Will Accept/Oversee The Plan Of Care: Elvis Monzon Start of Care Date: 09/27/22 Onset Date: 08/31/22 Plan of Care Certification Date: 09/27/22 Next Certification Due Date: 11/27/22 REHABILITATION AND SPORTS THERAPY PHYSICAL THERAPY PROGRESS REPORT PLAN OF CARE UPDATE: Assessment: Robin Delarosa demonstrates moderate improvement in standing, walking, bending, heavy exertion, lifting, physical activities, recreational activities, working, reaching behind back, reaching overhead, and use hand with arm at shoulder level. He has progressed toward goals. Patient continues to present with impairments in overall function, strength, and symptom management that interfere with heavy exertion, lifting, physical activities, recreational activities . Current prognosis is Good due to: current objective clinical presentation, good overall health status, positive past response to therapy, good support system/ coping skills, within-session changes . He will benefit from continued skilled therapy services to meet the updated goals for this plan of care as noted below. Goals updated on 10/22/2022. Goals for Episode of Care: created on 09/27/22 through 11/28/22 [place] in home exercise program. Met, on-going Patient will decrease pain rating by 2 points to meet minimal clinical important difference for numeric pain rating scale. Met for shoulder, not met for back Patient will increase active ROM of R shoulder and lumbar spine to WNL to allow pt to to improve performance of ADLs. Met for shoulder, not for back Patient will demonstrate increase in R shoulder and core/trunk strength to 5/5 during manual muscle testing in order to improve function for basic self-care tasks, home management tasks, leisure / recreation skills, and prior functional tasks. Met for shoulder, not for trunk Perform reaching, lifting, and driving horses with decreased report of symptoms/pain in 6-8 weeks. Met for shoulder, not for back Perform self care without pain. Met Planned Interventions, Frequency, and Duration: 1x/week, 4 weeks Total Number of Visits Planned: 4 Patient to be seen for Therapeutic exercise (66780), Neuromuscular re-education (22220), Manual therapy (92690), Therapeutic activities (29422), Self-long-term management (48344), Patient/Family/Caregiver Education, Body Mechanics Training PLAN FOR NEXT VISIT: Continue traction, progress neutral core strengthening as tolerated Classification Low Back Pain Subgroup Classification: Core stabilization subgroup: recommended visits 10. Core Stabilization Subgroup Classification based on: pain with transitional movements SUBJECTIVE: Patient Reason for Visit: Pt's shoulder is doing great, feels he is good to go and self managing those symptoms. No functional UE deficits. Notes back is improved but still the problem spot. Notes feeling more endurance, able to work longer before pain comes on. Functional Limitations: heavy exertion, lifting, physical activities, recreational activities Pain: Pain Pain Level: 4 Pain Location: Back Description: Aching, Sore Frequency: Continuous PROMIS Scales Higher is Better 09/26/2022 Phys Func - Score 47 (within normal limits) Phys Func - Percentile 38 % Self-Eff Symptom - Score 48 (Average) Self-Eff Symptom - Percentile 42 % T-scores: mean of general population = 50. 5 points is clinically meaningfully difference Percentiles provide an indication of how the patient's score ranks in relation to the general population. Higher percentile rankings indicate better function/quality of life. 50th percentile is the average of the general population and indicates half of respondents had a worse score. OBJECTIVE MEASURES WITH LEVEL OF FUNCTION: Lumbar Spine AROM Lumbar Flexion: Normal Lumbar Extension: Minimal limitation Lumbar R Side-Bend: Minimal limitation Lumbar L Side-Bend: Minimal limitation Lumbar R Rotation: Normal Lumbar L Rotation: Normal UE AROM R UE AROM: WNL UE and Cervical Strength R UE Strength: 4+/5 grossly LE Strength Trunk Strength: 4/5 R LE Strength: 5/5 L LE Strength: 5/5 TREATMENT: Therapeutic Exercise: 1: SKC 3x30 sec on R 5: TA bracing with alt leg extensions 2x10/side 6: PuTB pallof press 3x10/side 7: PuTB stir the pot 2x10/side cw/ccw Skilled Intervention: Patient was educated in proper exercise technique and purpose for exercises. Skilled judgment was provided in selection of appropriate interventions. Provided written instruction for home exercise program to facilitate proper performance and compliance. Correct performance of therapeutic exercises was facilitated with verbal, visual, and tactile cuing. Manual Therapy: 1: Manual lumbar belt tracti (more content not included)... [facility] 10-26-2022 History of Present illness Narrative Episode Visit Count: 5 Therapist That Will Accept/Oversee The Plan Of Care: Elvis Monzon Start of Care Date: 09/27/22 Onset Date: 08/31/22 Plan of Care Certification Date: 09/27/22 Next Certification Due Date: 11/27/22 REHABILITATION AND SPORTS THERAPY PHYSICAL THERAPY PROGRESS REPORT PLAN OF CARE UPDATE: Assessment: Robin Delarosa demonstrates moderate improvement in standing, walking, bending, heavy exertion, lifting, physical activities, recreational activities, working, reaching behind back, reaching overhead, and use hand with arm at shoulder level. He has progressed toward goals. Patient continues to present with impairments in overall function, strength, and symptom management that interfere with heavy exertion, lifting, physical activities, recreational activities . Current prognosis is Good due to: current objective clinical presentation, good overall health status, positive past response to therapy, good support system/ coping skills, within-session changes . He will benefit from continued skilled therapy services to meet the updated goals for this plan of care as noted below. Goals updated on 10/22/2022. Goals for Episode of Care: created on 09/27/22 through 11/28/22 [place] in home exercise program. Met, on-going Patient will decrease pain rating by 2 points to meet minimal clinical important difference for numeric pain rating scale. Met for shoulder, not met for back Patient will increase active ROM of R shoulder and lumbar spine to WNL to allow pt to to improve performance of ADLs. Met for shoulder, not for back Patient will demonstrate increase in R shoulder and core/trunk strength to 5/5 during manual muscle testing in order to improve function for basic self-care tasks, home management tasks, leisure / recreation skills, and prior functional tasks. Met for shoulder, not for trunk Perform reaching, lifting, and driving horses with decreased report of symptoms/pain in 6-8 weeks. Met for shoulder, not for back Perform self care without pain. Met Planned Interventions, Frequency, and Duration: 1x/week, 4 weeks Total Number of Visits Planned: 4 Patient to be seen for Therapeutic exercise (72840), Neuromuscular re-education (36252), Manual therapy (40811), Therapeutic activities (47694), Self-long-term management (54482), Patient/Family/Caregiver Education, Body Mechanics Training PLAN FOR NEXT VISIT: Continue traction, progress neutral core strengthening as tolerated Classification Low Back Pain Subgroup Classification: Core stabilization subgroup: recommended visits 10. Core Stabilization Subgroup Classification based on: pain with transitional movements SUBJECTIVE: Patient Reason for Visit: Pt's shoulder is doing great, feels he is good to go and self managing those symptoms. No functional UE deficits. Notes back is improved but still the problem spot. Notes feeling more endurance, able to work longer before pain comes on. Functional Limitations: heavy exertion, lifting, physical activities, recreational activities Pain: Pain Pain Level: 4 Pain Location: Back Description: Aching, Sore Frequency: Continuous PROMIS Scales Higher is Better 09/26/2022 Phys Func - Score 47 (within normal limits) Phys Func - Percentile 38 % Self-Eff Symptom - Score 48 (Average) Self-Eff Symptom - Percentile 42 % T-scores: mean of general population = 50. 5 points is clinically meaningfully difference Percentiles provide an indication of how the patient's score ranks in relation to the general population. Higher percentile rankings indicate better function/quality of life. 50th percentile is the average of the general population and indicates half of respondents had a worse score. OBJECTIVE MEASURES WITH LEVEL OF FUNCTION: Lumbar Spine AROM Lumbar Flexion: Normal Lumbar Extension: Minimal limitation Lumbar R Side-Bend: Minimal limitation Lumbar L Side-Bend: Minimal limitation Lumbar R Rotation: Normal Lumbar L Rotation: Normal UE AROM R UE AROM: WNL UE and Cervical Strength R UE Strength: 4+/5 grossly LE Strength Trunk Strength: 4/5 R LE Strength: 5/5 L LE Strength: 5/5 TREATMENT: Therapeutic Exercise: 1: SKC 3x30 sec on R 5: TA bracing with alt leg extensions 2x10/side 6: PuTB pallof press 3x10/side 7: PuTB stir the pot 2x10/side cw/ccw Skilled Intervention: Patient was educated in proper exercise technique and purpose for exercises. Skilled judgment was provided in selection of appropriate interventions. Provided written instruction for home exercise program to facilitate proper performance and compliance. Correct performance of therapeutic exercises was facilitated with verbal, visual, and tactile cuing. Manual Therapy: 1: Manual lumbar belt traction x10 min feet on stool Skilled Intervention: Manual skills to improve joint mobility, ROM, and decrease pain. Utilized anatomy knowledge of the therapist, and assessment of patient's response to intervention. Billing Therapeutic Exercise Treatment Minutes: 22 Manual TherapyTreatment Minutes: 10 Total Treatment Time Minutes (timed/untimed): 32 Elvis Monzon PT documented in this encounter [facility] 10-17-2022 Note HNO ID: [id number] Author: Elvis Monzon PT Service: ? Author Type: Physical Therapist Type: Progress Notes Filed: 10/17/2022 12:59 PM Note Text: Episode Visit Count: 4 Therapist That Will Accept/Oversee The Plan Of Care: Elvis Monzon Start of Care Date: 09/27/22 Onset Date: 08/31/22 Plan of Care Certification Date: 09/27/22 Next Certification Due Date: 11/27/22 REHABILITATION AND SPORTS THERAPY PHYSICAL THERAPY TREATMENT NOTE ASSESSMENT: Robin Delarosa tolerated the session with decreased symptoms and no issues. He demonstrated improvements in back pain and activity tolerance. The patient will continue to benefit from ongoing skilled physical therapy to progress toward set goals and for reassessment by supervising therapist. PLAN FOR NEXT VISIT: [place] SUBJECTIVE: Patient Reason for Visit: Pt's shoulder doing really well, no issues for a few weeks now. Back doing better, but still not great. Traction continues to be most helpful intervention Pain: Pain Pain Level: 4 Pain Location: Back Description: Aching, Sore Frequency: Continuous OBJECTIVE MEASURES WITH LEVEL OF FUNCTION: TREATMENT: Therapeutic Exercise: 1: SKC 3x30 sec on R 2: Ashu curl up 3x10, 5 sec holds 3: *TA bracing with BKFO 3x10/side (GTB added today for HEP) 4: TA bracing with hip hikes 3x10/side 5: PuTB pallof press 3x10/side Skilled Intervention: Patient was educated in proper exercise technique and purpose for exercises. Skilled judgment was provided in selection of appropriate interventions. Provided written instruction for home exercise program to facilitate proper performance and compliance. Correct performance of therapeutic exercises was facilitated with verbal, visual, and tactile cuing. Manual Therapy: 1: Manual lumbar belt traction x10 min feet on stool Skilled Intervention: Manual skills to improve joint mobility, ROM, and decrease pain. Utilized anatomy knowledge of the therapist, and assessment of patient's response to intervention. Billing Therapeutic Exercise Treatment Minutes: 28 Manual TherapyTreatment Minutes: 10 Total Treatment Time Minutes (timed/untimed): 38 Elvis Monzon PT [facility] 10-17-2022 History of Present illness Narrative Episode Visit Count: 4 Therapist That Will Accept/Oversee The Plan Of Care: Elvis Monzon Start of Care Date: 09/27/22 Onset Date: 08/31/22 Plan of Care Certification Date: 09/27/22 Next Certification Due Date: 11/27/22 REHABILITATION AND SPORTS THERAPY PHYSICAL THERAPY TREATMENT NOTE ASSESSMENT: Robin Delarosa tolerated the session with decreased symptoms and no issues. He demonstrated improvements in back pain and activity tolerance. The patient will continue to benefit from ongoing skilled physical therapy to progress toward set goals and for reassessment by supervising therapist. PLAN FOR NEXT VISIT: [place] SUBJECTIVE: Patient Reason for Visit: Pt's shoulder doing really well, no issues for a few weeks now. Back doing better, but still not great. Traction continues to be most helpful intervention Pain: Pain Pain Level: 4 Pain Location: Back Description: Aching, Sore Frequency: Continuous OBJECTIVE MEASURES WITH LEVEL OF FUNCTION: TREATMENT: Therapeutic Exercise: 1: SKC 3x30 sec on R 2: Ashu curl up 3x10, 5 sec holds 3: *TA bracing with BKFO 3x10/side (GTB added today for HEP) 4: TA bracing with hip hikes 3x10/side 5: PuTB pallof press 3x10/side Skilled Intervention: Patient was educated in proper exercise technique and purpose for exercises. Skilled judgment was provided in selection of appropriate interventions. Provided written instruction for home exercise program to facilitate proper performance and compliance. Correct performance of therapeutic exercises was facilitated with verbal, visual, and tactile cuing. Manual Therapy: 1: Manual lumbar belt traction x10 min feet on stool Skilled Intervention: Manual skills to improve joint mobility, ROM, and decrease pain. Utilized anatomy knowledge of the therapist, and assessment of patient's response to intervention. Billing Therapeutic Exercise Treatment Minutes: 28 Manual TherapyTreatment Minutes: 10 Total Treatment Time Minutes (timed/untimed): 38 Elvis Monzon PT documented in this encounter [facility] 10-11-2022 Note HNO ID: [id number] Author: Elvis Monzon PT Service: ? Author Type: Physical Therapist Type: Progress Notes Filed: 10/11/2022 10:20 AM Note Text: Episode Visit Count: 3 Therapist That Will Accept/Oversee The Plan Of Care: Elvis Monzon Start of Care Date: 09/27/22 Onset Date: 08/31/22 Plan of Care Certification Date: 09/27/22 Next Certification Due Date: 11/27/22 REHABILITATION AND SPORTS THERAPY PHYSICAL THERAPY TREATMENT NOTE ASSESSMENT: Robin Delarosa tolerated the session with decreased symptoms and no issues. He demonstrated improvements in back pain and exercise tolerance without increasing symptoms today. The patient will continue to benefit from ongoing skilled physical therapy to progress toward set goals. PLAN FOR NEXT VISIT: Continue with traction, may progress shoulder and core exercises per symptom tolerance SUBJECTIVE: Patient Reason for Visit: Pt doing well tonight. Shoulder continues to do better. Back exercises help some, but traction seemed to help the most. Pain: Pain Pain Level: 4 Pain Location: Back Description: Aching, Sore Frequency: Continuous OBJECTIVE MEASURES WITH LEVEL OF FUNCTION: Traction and flexion bias decrease pain TREATMENT: Therapeutic Exercise: 1: SKC 3x30 sec on R 2: DKC 3x30 sec 3: Ashu curl up 3x10, 5 sec holds 4: TA bracing with BKFO 3x10/side 5: TA bracing with alt hip hikes 3x10/side 6: *PuTB pallof press 3x10/side Skilled Intervention: Patient was educated in proper exercise technique and purpose for exercises. Skilled judgment was provided in selection of appropriate interventions. Provided written instruction for home exercise program to facilitate proper performance and compliance. Correct performance of therapeutic exercises was facilitated with verbal, visual, and tactile cuing. Manual Therapy: 1: Manual lumbar belt traction x10 min feet on stool Skilled Intervention: Manual skills to improve joint mobility, ROM, and decrease pain. Utilized anatomy knowledge of the therapist, and assessment of patient's response to intervention. Billing Therapeutic Exercise Treatment Minutes: 31 Manual TherapyTreatment Minutes: 10 Total Treatment Time Minutes (timed/untimed): 41 Elvis Monzon, PT [facility] 10-11-2022 History of Present illness Narrative Episode Visit Count: 3 Therapist That Will Accept/Oversee The Plan Of Care: Elvis Monzon Start of Care Date: 09/27/22 Onset Date: 08/31/22 Plan of Care Certification Date: 09/27/22 Next Certification Due Date: 11/27/22 REHABILITATION AND SPORTS THERAPY PHYSICAL THERAPY TREATMENT NOTE ASSESSMENT: Robin Delarosa tolerated the session with decreased symptoms and no issues. He demonstrated improvements in back pain and exercise tolerance without increasing symptoms today. The patient will continue to benefit from ongoing skilled physical therapy to progress toward set goals. PLAN FOR NEXT VISIT: Continue with traction, may progress shoulder and core exercises per symptom tolerance SUBJECTIVE: Patient Reason for Visit: Pt doing well tonight. Shoulder continues to do better. Back exercises help some, but traction seemed to help the most. Pain: Pain Pain Level: 4 Pain Location: Back Description: Aching, Sore Frequency: Continuous OBJECTIVE MEASURES WITH LEVEL OF FUNCTION: Traction and flexion bias decrease pain TREATMENT: Therapeutic Exercise: 1: SKC 3x30 sec on R 2: DKC 3x30 sec 3: Ashu curl up 3x10, 5 sec holds 4: TA bracing with BKFO 3x10/side 5: TA bracing with alt hip hikes 3x10/side 6: *PuTB pallof press 3x10/side Skilled Intervention: Patient was educated in proper exercise technique and purpose for exercises. Skilled judgment was provided in selection of appropriate interventions. Provided written instruction for home exercise program to facilitate proper performance and compliance. Correct performance of therapeutic exercises was facilitated with verbal, visual, and tactile cuing. Manual Therapy: 1: Manual lumbar belt traction x10 min feet on stool Skilled Intervention: Manual skills to improve joint mobility, ROM, and decrease pain. Utilized anatomy knowledge of the therapist, and assessment of patient's response to intervention. Billing Therapeutic Exercise Treatment Minutes: 31 Manual TherapyTreatment Minutes: 10 Total Treatment Time Minutes (timed/untimed): 41 Elvis Monzon PT documented in this encounter [facility] 10-05-2022 Note HNO ID: [id number] Author: Elvis Monzon PT Service: ? Author Type: Physical Therapist Type: Progress Notes Filed: 10/05/2022 12:14 PM Note Text: Episode Visit Count: 2 Therapist That Will Accept/Oversee The Plan Of Care: Elvis Monzon Start of Care Date: 09/27/22 Onset Date: 08/31/22 Plan of Care Certification Date: 09/27/22 Next Certification Due Date: 11/27/22 REHABILITATION AND SPORTS THERAPY PHYSICAL THERAPY TREATMENT NOTE ASSESSMENT: Robin Delarosa tolerated the session with decreased symptoms. He demonstrated improvements in back pain with flexion bias and traction. The patient will continue to benefit from ongoing skilled physical therapy to progress toward set goals. PLAN FOR NEXT VISIT: Continue exercise progression for shoulder/core per tolerance SUBJECTIVE: Patient Reason for Visit: Pt would like to focus on back today. Bending, lifting, heavy exertion, and standing up straight/extension bothers him most Pain: Pain Pain Level: 5 Pain Location: Back Description: Aching, Sore Frequency: Continuous OBJECTIVE MEASURES WITH LEVEL OF FUNCTION: Flexion bias improves back pain TREATMENT: Therapeutic Exercise: 1: *SKC 3x30 sec on R 2: *DKC 3x30 sec 3: *TA bracing 3x10, 5 sec holds 4: *TA bracing with BKFO 3x10/side 5: *TA bracing with alt hip hikes 3x10/side 6: Reviewed shoulder HEP Skilled Intervention: Patient was educated in proper exercise technique and purpose for exercises. Skilled judgment was provided in selection of appropriate interventions. Provided written instruction for home exercise program to facilitate proper performance and compliance. Correct performance of therapeutic exercises was facilitated with verbal, visual, and tactile cuing. Manual Therapy: 1: Manual lumbar belt traction x10 min feet on stool Skilled Intervention: Manual skills to improve joint mobility, ROM, and decrease pain. Utilized anatomy knowledge of the therapist, and assessment of patient's response to intervention. Billing Therapeutic Exercise Treatment Minutes: 30 Manual TherapyTreatment Minutes: 10 Total Treatment Time Minutes (timed/untimed): 40 Elvis Monzon PT [facility] 09-28-2022 Note HNO ID: [id number] Author: Elvis Monzon PT Service: ? Author Type: Physical Therapist Type: Progress Notes Filed: 09/28/2022 12:53 PM Note Text: Episode Visit Count: 1 Therapist That Will Accept/Oversee The Plan Of Care: Elvis Monzon Start of Care Date: 09/27/22 Onset Date: 08/31/22 Plan of Care Certification Date: 09/27/22 Next Certification Due Date: 11/27/22 Patient Identified by Name and Date of : Yes REHABILITATION AND SPORTS THERAPY PHYSICAL THERAPY EVALUATION PLAN OF CARE: Assessment: Robin Delarosa presents with chief complaint of R shoulder pain that interferes with heavy exertion, lifting, physical activities, recreational activities, reaching overhead, use hand with arm at shoulder level . He presents with impairments in ADL's, overall function, range of motion, strength, symptom management, and tissue tenderness. PROMIS? (Patient-Reported Outcomes Measurement Information System) scores were reviewed and all domains identified as within normal limits. Prognosis for therapy is Good due to: current objective clinical presentation, within-session changes, good support system/ coping skills . He will benefit from skilled therapy services to meet the goals established for this plan of care as noted below. Goals for Episode of Care: created on 09/27/22 through 11/28/22 [place] in home exercise program. Patient will decrease pain rating by 2 points to meet minimal clinical important difference for numeric pain rating scale. Patient will increase active ROM of R shoulder to WNL to allow pt to to improve performance of ADLs. Patient will demonstrate increase in R shoulder strength to 5/5 during manual muscle testing in order to improve function for basic self-care tasks, home management tasks, leisure / recreation skills, and prior functional tasks. Perform reaching, lifting, and driving horses with decreased report of symptoms/pain in 6-8 weeks. Perform self care without pain. Planned Interventions, Frequency, and Duration: Current Frequency: 1x/week Duration: 8 weeks Total Number of Visits Planned: 8 Planned Treatment Interventions: Therapeutic exercise (39199), Neuromuscular re-education (65785), Manual therapy (39743), Therapeutic activities (50569), Self-long-term management (75785), Patient/Family/Caregiver Education, Body Mechanics Training PLAN FOR NEXT VISIT: May assess back and create goals, assess HEP for shoulder Patient demonstrates good understanding of plan of care and treatment. The above goals and plan of care were discussed and agreed upon by patient/family. SUBJECTIVE: Robin Delarosa is a 67 year old male seen today for R shoulder pain in the last month when driving horses with his . Initially had sharp and debilitating pain, but was on prednisone and this calmed it to a dull ache and moderate soreness he can work through. pt would also like to look at chronic lower back pain Functional Limitations: heavy exertion, lifting, physical activities, recreational activities, reaching overhead, use hand with arm at shoulder level Prior Level of Function: Independent without limitations Intake Information: Prescription present Pain: Pain Pain Level: 3 Pain Location: Shoulder - Right Description: Aching, Sore, Dull Frequency: Continuous Post Treatment Pain Post Treatment Pain Level: No Change PROMIS Scales Higher is Better 09/26/2022 Phys Func - Score 47 (within normal limits) Phys Func - Percentile 38 % Self-Eff Symptom - Score 48 (Average) Self-Eff Symptom - Percentile 42 % T-scores: mean of general population = 50. 5 points is clinically meaningfully difference Percentiles provide an indication of how the patient's score ranks in relation to the general population. Higher percentile rankings indicate better function/quality of life. 50th percentile is the average of the general population and indicates half of respondents had a worse score. OBJECTIVE MEASURES WITH LEVEL OF FUNCTION: Shoulder Observations R Shoulder Palpation Tenderness: Comments R Shoulder Palpation Tenderness Comments: Infraspinatus, rhomboids UE AROM R UE AROM: Minimal limitations but pain at end range and painful arc UE and Cervical Strength R UE Strength: 4/5 grossly L UE Strength: 4+/5 grossly Education: Education Learning/educational needs: Home exercise program, Plan of Care, Changes in Plan of Care, Body Mechanics TREATMENT: PT Treatment Interventions: Manual Therapy, Therapeutic Exercise Evaluation Therapeutic Exercise: 1: *GTB ER 3x10 2: *GTB IR 3x10 3: *Full can 3# 3x10 4: *SL ER 3# 3x10 Skilled Intervention: Patient was educated in proper exercise technique and purpose for exercises. Skilled judgment was provided in selection of appropriate interventions. Provided written instruction for home exercise program to facilitate proper performance and compliance. Correct performance of the (more content not included)... [facility] 09-28-2022 History of Past i llness Narrative Problem Noted Date Diagnosed Date Resolved Date Acute pain of right shoulder 09/28/2022 05/01/2023 documented as of this encounter (statuses as of 06/05/2023) [facility]06-02-2023 History of Past illness Narrative* Problem Noted Date Diagnosed Date Resolved Date Acute pain of right shoulder 09/28/2022 05/01/2023 documented as of this encounter (statuses as of 06/11/2023) [facility] History of Past illness Narrative* Problem Noted Date Diagnosed Date Resolved Date Acute pain of right shoulder 09/28/2022 05/01/2023 documented as of this encounter (statuses as of 06/18/2023) [facility] History of Past illness Narrative* Problem Noted Date Diagnosed Date Resolved Date Acute pain of right shoulder 09/28/2022 05/01/2023 documented as of this encounter (statuses as of 06/26/2023) [facility] History of Past illness Narrative* Problem Noted Date Diagnosed Date Resolved Date Acute pain of right shoulder 09/28/2022 05/01/2023 documented as of this encounter (statuses as of 07/22/2023) [facility] History of Present illness Narrative* Elvis Monzon, PT - 09/28/2022 12:49 PM EDT Episode Visit Count: 1 Therapist That Will Accept/Oversee The Plan Of Care: Elvis Monzon Start of Care Date: 09/27/22 Onset Date: 08/31/22 Plan of Care Certification Date: 09/27/22 Next Certification Due Date: 11/27/22 Patient Identified by Name and Date of : Yes REHABILITATION AND SPORTS THERAPY PHYSICAL THERAPY EVALUATION PLAN OF CARE: Assessment: Robin Delarosa presents with chief complaint of R shoulder pain that interferes with heavy exertion, lifting, physical activities, recreational activities, reaching overhead, use hand with arm at shoulder level . He presents with impairments in ADL's, overall function, range of motion,strength, symptom management, and tissue tenderness. PROMIS (Patient-Reported Outcomes Measurement Information System) scores were reviewed and all domains identified as within normal limits. Prognosis for therapy is Good due to: current objective clinical presentation, within-session changes, goodsupport system/ coping skills . He will benefit from skilled therapy services to meet the goals established for this plan of care as noted below. Goals for Episode of Care: created on 09/27/22 through 11/28/22 [place] in home exercise program. Patient will decrease pain rating by 2 points to meet minimal clinical important difference for numeric pain rating scale. Patient will increase active ROM of R shoulder to WNL to allow pt to to improve performance of ADLs. Patient will demonstrate increase in R shoulder strength to 5/5 during manual muscle testing in order to improve function for basic self-care tasks, home management tasks, leisure / recreation skills, and prior functional tasks. Perform reaching, lifting, and driving horses with decreased report of symptoms/pain in 6-8 weeks. Perform self care without pain. Planned Interventions, Frequency, and Duration: Current Frequency: 1x/week Duration: 8 weeks Total Number of Visits Planned: 8 Planned Treatment Interventions: Therapeutic exercise (26871), Neuromuscular re- education (36477), Manual therapy (85014), Therapeutic activities (57097), Self- long-term management (60988), Patient/Family/Caregiver Education, Body Mechanics Training PLAN FOR NEXT VISIT: May assess back and create goals, assess HEP for shoulder Patient demonstrates good understanding of plan of care and treatment. The above goals and plan of care were discussed and agreed upon by patient/family. SUBJECTIVE: Robin Delarosa is a 67 year old male seen today for R shoulder pain in the last month when driving horses with his . Initially had sharp and debilitating pain, but was on prednisone and this calmed it to a dull ache and moderate soreness he can work through. pt would also like to look at chronic lower back pain Functional Limitations: heavy exertion, lifting, physical activities, recreational activities, reaching overhead, use hand with arm at shoulder level Prior Level of Function: Independent without limitations Intake Information: Prescription present Pain: Pain Pain Level: 3 Pain Location: Shoulder - Right Description: Aching, Sore, Dull Frequency: Continuous Post Treatment Pain Post Treatment Pain Level: No Change PROMIS Scales Higher is Better 09/26/2022 Phys Func - Score 47 (within normal limits) Phys Func - Percentile 38 % Self-Eff Symptom - Score 48 (Average) Self-Eff Symptom - Percentile 42 % T-scores: mean of general population = 50. 5 points is clinically meaningfully difference Percentiles provide an indication of how the patient's score ranks in relation to the general population. Higher percentile rankings indicate better function/quality of life. 50th percentile is the average of the general population and indicates half of respondents had a worse score. OBJECTIVE MEASURES WITH LEVEL OF FUNCTION: Shoulder Observations R Shoulder Palpation Tenderness: Comments R Shoulder Palpation Tenderness Comments: Infraspinatus, rhomboids UE AROM R UE AROM: Minimal limitations but pain at end range and painful arc UE and Cervical Strength R UE Strength: 4/5 grossly L UE Strength: 4+/5 grossly Education: Education Learning/educational needs: Home exercise program, Plan of Care, Changes in Plan of Care, Body Mechanics TREATMENT: PT Treatment Interventions: Manual Therapy, Therapeutic Exercise Evaluation Therapeutic Exercise: 1: *GTB ER 3x10 2: *GTB IR 3x10 3: *Full can 3# 3x10 4: *SL ER 3# 3x10 Skilled Intervention: Patient was educated in proper exercise technique and purpose for exercises. Skilled judgment was provided in selection of appropriate interventions. Provided written instruction for home exercise program to facilitate proper performance and compliance. Correct performance of therapeutic exercises was facilitated with verbal, visual, and tactile cuing. Manual Therapy: 1: STM and CFM to R infraspinatus and rhomboids with push to tolerance (showed how to perform on self for HEP) Skilled Intervention: Manual skills to improve joint mobility, ROM, and decrease pain. Utilized anatomy knowledge of the therapist, and assessment of patient's response to intervention. Billing * Evaluation Low Complexity: 1 Unit Therapeutic Exercise Treatment Minutes: 15 Manual TherapyTreatment Minutes: 10 Total Treatment Time Minutes (timed/untimed): 50 Elvis [facility]zon [facility] noteNo assessment information availableWOhio[facility] Phone: [facility]* Diagnosis Other cervical disc degeneration, unspecified cervical region Pain in right shoulder documented in this encounter [facility] note* Diagnosis Acute pain of right shoulder- Primary documented in this encounter [facility]* Diagnosis Acute pain of right shoulder- Primary documented in this encounter [facility] note* Diagnosis Acute pain of right shoulder- Primary documented in this encounter [facility] note* Diagnosis Acute pain of right shoulder- Primary documented in this encounter [facility] note* Diagnosis Acute pain of right shoulder- Primary documented in this encounter [facility] note* Diagnosis Acute pain of right shoulder- Primary documented in this encounter [facility] note* Diagnosis Acute pain of right shoulder- Primary documented in this [facility] note* Diagnosis Acute pain of right shoulder- Primary documented in this [facility] note* Diagnosis Other cervical disc degeneration, unspecified cervical region- Primary Pain in right shoulder Other cervical disc degeneration, unspecified cervical region Pain in right shoulder documented in this encounter [facility] note* Diagnosis Pain- Primary Generalized pain documented in this encounter [facility] note* Diagnosis CMC arthritis- Primary Unspecified arthropathy, hand Disturbance of skin sensation documented in this encounter [facility] note* Diagnosis Primary osteoarthritis of first carpometacarpal joint of right hand- Primary Primary localized osteoarthrosis, hand documented in [facility]* Diagnosis Primary osteoarthritis of first carpometacarpal joint of right hand- Primary Primary localized osteoarthrosis, hand documented in this encounter [facility] note* Diagnosis Primary osteoarthritis of first carpometacarpal joint of right hand- Primary Primary localized osteoarthrosis, hand documented in this [facility] note* Diagnosis Primary osteoarthritis of first carpometacarpal joint of right hand- Primary Primary localized osteoarthrosis, hand documented in this [facility] note* Diagnosis Primary osteoarthritis of first carpometacarpal joint of right hand- Primary Primary localized osteoarthrosis, hand Postoperative stitch abscess Other postoperative infection documented in this encounter [facility] note* Diagnosis Benign prostatic hyperplasia with urinary frequency- Primary Elevated PSA Elevated prostate specific antigen (PSA) History of needle biopsy of prostate with negative result Prostate cancer screening Special screening for malignant neoplasm of prostate documented in this encounter [facility] note* Diagnosis Pre-operative examination- Primary Preoperative examination, unspecified BPH with urinary obstruction Hypertrophy of prostate with urinary obstruction and other lower urinary tract symptoms (LUTS) Essential hypertension, benign Mixed hyperlipidemia LOIDA (obstructive sleep apnea) Obstructive sleep apnea (adult) (pediatric) Anxiety and depression Dysthymic disorder Gastroesophageal reflux disease, unspecified whether esophagitis present Intractable migraine with status migrainosus, unspecified migraine type Post laminectomy syndrome Postlaminectomy syndrome, unspecified region Primary osteoarthritis of first carpometacarpal joint of right hand Primary localized osteoarthrosis, hand documented in this encounter [facility] note* Diagnosis Pain Generalized pain Pre-operative examination- Primary Preoperative examination, unspecified BPH with urinary obstruction Hypertrophy of prostate with urinary obstruction and other lower urinary tract symptoms (LUTS) Essential hypertension, benign Mixed hyperlipidemia LOIDA (obstructive sleep apnea) Obstructive sleep apnea (adult) (pediatric) Anxiety and depression Dysthymic disorder Gastroesophageal reflux disease, unspecified whether esophagitis present Intractable migraine with status migrainosus, unspecified migraine type Post laminectomy syndrome Postlaminectomy syndrome, unspecified region documented in this encounter [facility] note* Diagnosis Anemia, unspecified- Primary documented in this encounter [facility] note* Diagnosis Benign prostatic hyperplasia without lower urinary tract symptoms- Primary Elevated PSA Elevated prostate specific antigen (PSA) Rising PSA level documented in this encounter [facility] for referral (narrative)* Diagnostic Procedure Only (Routine) - Authorized Specialty Diagnoses / Procedures Referred By Sienna t Referred To Contact XR IMAGING Diagnoses Pain Procedures XR HAND GENERAL 3V PA/LAT/OBL RIGHT RADEX HAND MINIMUM 3 VIEWS Gabrielle Benton PA-C [address] [place] [address] [place] [address] Referral ID Status Reason Start Date Expiration Date Visits Requested Visits Authorized [id number] Authorized Auto-Generat ed Referral 03/16/2024 1 1 [facility] for referral (narrative)* Outpatient Procedure (Routine) - Authorized Specialty Diagnoses / Procedures Referred By Sienna t Referred To Contact [facility] Diagnoses Disturbance of skin sensation Procedures EMG(NEURO/NI) NERVE CONDUCTION STUDIES 9-10 STUDIES Gabrielle Benton PA-C [address] [place] [address] [facility] [place] [address] [id number] Referral ID Status Reason Start Date Expiration Date Visits Requested Visits Authorized [id number] Authorized Auto-Generat ed Referral 02/28/2023 02/29/2024 1 1 [facility] for referral (narrative)* Diagnostic Procedure Only (Routine) - Closed Specialty Diagnoses / Procedures Referred By Sienna t Referred To Contact XR IMAGING Diagnoses Primary osteoarthritis of first carpometacarpal joint of right hand Procedures XR HAND GENERAL 3V PA/LAT/OBL RIGHT RADEX HAND MINIMUM 3 VIEWS John Fry MD [address] [facility] [address] [place] [address] Referral ID Status Reason Start Date Expiration Date V isits Requested Visits Authorized [id number] Closed Auto-Generate d Referral 05/27/2023 06/25/2024 1 1 [facility] for referral (narrative)* Diagnostic Procedure Only (Routine) - Closed Specialty Diagnoses / Procedures Referred By Contac t Referred To Contact XR IMAGING Diagnoses Pain Procedures XR HAND GENERAL 3V PA/LAT/OBL RIGHT RADEX HAND MINIMUM 3 VIEWS Gabrielle Benton PA-C [address] [place] [address] [place] [address] Referral ID Status Reason Start Date Expiration Date V isits Requested Visits Authorized [id number] Closed Auto-Generate d Referral 02/15/2023 03/16/2024 1 1 [facility] for visit Narrative* Diagnostic Procedure Only (Routine) - Closed Specialty Diagnoses / Procedures Referred By Contac t Referred To Contact XR IMAGING Diagnoses Primary osteoarthritis of first carpometacarpal joint of right hand Procedures XR HAND GENERAL 3V PA/LAT/OBL RIGHT RADEX HAND MINIMUM 3 VIEWS John Fry MD [address] [place] [address] [place] [address] Referral ID Status Reason Start Date Expiration Date V isits Requested Visits Authorized [id number] Closed Auto-Generate d Referral 05/27/2023 06/25/2024 1 1 [facility] for visit Narrative* Diagnostic Procedure Only (Routine) - Closed Specialty Diagnoses / Procedures Referred By Contac t Referred To Contact XR IMAGING Diagnoses Pain Procedures XR HAND GENERAL 3V PA/LAT/OBL RIGHT RADEX HAND MINIMUM 3 VIEWS Gabrielle Benton PA-C [address] [place] [address] [place] [address] Referral ID Status Reason Start Date Expiration Date V isits Requested Visits Authorized [id number] Closed Auto-Generate d Referral 02/15/2023 03/16/2024 1 1 [facility] Summary Purpose Family History No Family History Records FoundNo Family History Records FoundNo Family History Records FoundNo Family History Records FoundNo Family History Records FoundNo Family History Records FoundNo Family History Records Found Advance Directives No Advanced Directives Records FoundDocuments on File Type Date Recorded 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 Advance Directives and Living Will Power of Conservation Agent Documents on File Type Date Recorded 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 Elvis Monzon, [facility] [place] [address] [place] [address] Referral ID Status Reason Start Date Expiration Date Visits Requested Visits Authorized [id number] Pending Review PCP Requested Referral Auto-Generate d Referral 09/27/2022 12/26/2022 1 1 Referral ID Status Reason Start Date Expiration Date Visits Requested Visits Authorized [id number] Pending Review PCP Requested Referral Auto-Generate d Referral 10/22/2022 01/20/2023 1 1 Referral ID Status Reason Start Date Expiration Date Visits Requested Visits Authorized [id number] Pending Review PCP Requested Referral Auto-Generate d Referral 11/21/2022 02/19/2023 1 1 Assessments Diagnosis Elevated PSA, less than 10 ng/ml Elevated prostate specific antigen (PSA) Chief Complaint and Reason for Visit Chief Complaint COPY PCP Additional Source Comments (unrecognized sect ion and content) No Status Records FoundNo Status Records FoundNo Status Records FoundNo Status Records FoundNo Status Records FoundNo Status Records FoundNo Status Records Found INFORMATION SOURCE (unrecogn ized section and content) DATE CREATED AUTHOR 06/17/2018 [facility] DATE CREATED AUTHOR AUTHOR'S ORGANIZ ATION 03/25/2019 [facility] DATE CREATED AUTHOR AUTHOR'S ORGANIZ ATION 01/13/2021 [facility] DATE CREATED AUTHOR AUTHOR'S ORGANIZ ATION 06/25/2023 [facility] DATE CREATED AUTHOR AUTHOR'S ORGANIZ ATION 07/23/2023 [facility] DATE CREATED AUTHOR AUTHOR'S ORGANIZ ATION 08/22/2024 [facility] DATE CREATED AUTHOR AUTHOR'S ORGANIZ ATION 08/25/2024 [facility] Care Teams (unrecognized sec tion and content) Team Status: Active Member Role Status Dates Dr. Essie Madrid MD Family Provider Active Dr. Essie Madrid MD Primary Care Provider Active Team Status: Inactive Member Role Status Dates Dr. Essie Madrid MD Primary Care Provider Active JAVIER DAWN Attending Provider, Referring Provider Active Coiler Operator Relationship Specialty Start Date End Date Essie Madrid MD [address] [place] [phone] PCP - General 11/28/17 Coiler Operator Relationship Specialty Start Date End Date Essie Madrid MD [address] [place] [phone] PCP - General 11/28/17 Coiler Operator Relationship Specialty Start Date End Date Essie Madrid MD [address] [place], [place] [phone] PCP - General Family Medicine 04/21/23 Coiler Operator Relationship Specialty Start Date End Date Essie Madrid MD [address] [place], [place] [id number] PCP - General Family Medicine 04/21/23 Coiler Operator Relationship Specialty Start Date End Date Essie Madrid MD [address] [place], [place] [address] PCP - General Family Medicine 04/21/23 Coiler Operator Relationship Specialty Start Date End Date Essie Madrid MD [address] [place], [place] [address] PCP - General Family Medicine 04/21/23 Team Status: Inactive Member Role Status Dates CARRIE ELIZABETH Attending Provider, Referring Provi khoa Active Dr. Essie Madrid MD Primary Care Provider Active Coiler Operator Relationship Specialty Start Date End Date Essie Madrid MD [address] [place] [phone] PCP - General 11/28/17 Coiler Operator Relationship Specialty Start Date End Date Essie Madrid MD [address] [place] [address] PCP - General Family Medicine 04/21/23 Coiler Operator Relationship Specialty Start Date End Date Essie Madrid MD [address] [place] [phone] PCP - General 11/28/17 Goals (unrecognized section and content) Goals may be documented in a n alternate sectionGoals may be documented in an alternate section Source Comments (unrecognize d section and content) In the event this informatio n is protected by the Federal Confidentiality of Alcohol and Drug Abuse Patient Records regulations: The Federal rules restrict any use of the information to criminally investigate or prosecute any alcohol or drug abuse patient.[facility] the event this information is protected by the Federal Confidentiality of Alcohol and Drug Abuse Patient Records regulations: The Federal rules restrict any use of the information to criminally investigate or prosecute any alcohol or drug abuse patient.[facility] the event this information is protected by the Federal Confidentiality of Alcohol and Drug Abuse Patient Records regulations: The Federal rules restrict any use of the information to criminally investigate or prosecute any alcohol or drug abuse patient.[facility] the event this information is protected by the Federal Confidentiality of Alcohol and Drug Abuse Patient Records regulations: The Federal rules restrict any use of the information to criminally investigate or prosecute any alcohol or drug abuse patient.[facility] the event this information is protected by the Federal Confidentiality of Alcohol and Drug Abuse Patient Records regulations: The Federal rules restrict any use of the information to criminally investigate or prosecute any alcohol or drug abuse patient.[facility] the event this information is protected by the Federal Confidentiality of Alcohol and Drug Abuse Patient Records regulations: The Federal rules restrict any use of the information to criminally investigate or prosecute any alcohol or drug abuse patient.[facility] the event this information is protected by the Federal Confidentiality of Alcohol and Drug Abuse Patient Records regulations: The Federal rules restrict any use of the information to criminally investigate or prosecute any alcohol or drug abuse patient.[facility] the event this information is protected by the Federal Confidentiality of Alcohol and Drug Abuse Patient Records regulations: The Federal rules restrict any use of the information to criminally investigate or prosecute any alcohol or drug abuse patient.[facility] the event this information is protected by the Federal Confidentiality of Alcohol and Drug Abuse Patient Records regulations: The Federal rules restrict any use of the information to criminally investigate or prosecute any alcohol or drug abuse patient.[facility] the event this information is protected by the Federal Confidentiality of Alcohol and Drug Abuse Patient Records regulations: The Federal rules restrict any use of the information to criminally investigate or prosecute any alcohol or drug abuse patient.[facility] the event this information is protected by the Federal Confidentiality of Alcohol and Drug Abuse Patient Records regulations: The Federal rules restrict any use of the information to criminally investigate or prosecute any alcohol or drug abuse patient.[facility] the event this information is protected by the Federal Confidentiality of Alcohol and Drug Abuse Patient Records regulations: The Federal rules restrict any use of the information to criminally investigate or prosecute any alcohol or drug abuse patient.[facility] the event this information is protected by the Federal Confidentiality of Alcohol and Drug Abuse Patient Records regulations: The Federal rules restrict any use of the information to criminally investigate or prosecute any alcohol or drug abuse patient.[facility] the event this information is protected by the Federal Confidentiality of Alcohol and Drug Abuse Patient Records regulations: The Federal rules restrict any use of the information to criminally investigate or prosecute any alcohol or drug abuse patient.[facility] the event this information is protected by the Federal Confidentiality of Alcohol and Drug Abuse Patient Records regulations: The Federal rules restrict any use of the information to criminally investigate or prosecute any alcohol or drug abuse patient.[facility] the event this information is protected by the Federal Confidentiality of Alcohol and Drug Abuse Patient Records regulations: The Federal rules restrict any use of the information to criminally investigate or prosecute any alcohol or drug abuse patient.[facility] the event this information is protected by the Federal Confidentiality of Alcohol and Drug Abuse Patient Records regulations: The Federal rules restrict any use of the information to criminally investigate or prosecute any alcohol or drug abuse patient.[facility] the event this information is protected by the Federal Confidentiality of Alcohol and Drug Abuse Patient Records regulations: The Federal rules restrict any use of the information to criminally investigate or prosecute any alcohol or drug abuse patient.[facility] HospitalIn the event this information is protected by the Federal Confidentiality of Alcohol and Drug Abuse Patient Records regulations: The Federal rules restrict any use of the information to criminally investigate or prosecute any alcohol or drug abuse patient.[facility] Reason for Visit (unrecogniz ed section and content) Reason Comments PT Progress Note Specialty Diagnoses / Procedures Referred By Contac t Referred To Contact Physical Therapy / PHYSICAL THERAPY Diagnoses M25.511 acute pain of right shoulder Procedures NEW RS PT ORTH Essie Gaitan MD [address] [place] [address] Elvis Monzon PT Referral ID Status Reason Start Date Expiration Date V isits Requested Visits Authorized [id number] Authorized 04/29/2022 04/28/2023 99 99 Reason Comments PT Eval Reason Comments Physical Therapy Specialty Diagnoses / Procedures Referred By Contac t Referred To Contact Physical Therapy / PHYSICAL THERAPY Diagnoses M25.511 acute pain of right shoulder Procedures NEW RS PT ORTH Essie Gaitan MD [address] [place] [address] Elvis Monzon PT Reason Comments New Pain Numbness Reason Comments Occupational Therapy Specialty Diagnoses / Procedures Referred By Contac t Referred To Contact [facility] Diagnoses Primary osteoarthritis of first carpometacarpal joint of right hand Procedures CONSULT TO CUT PLUG PACKER OCCUPATIONAL THERAPY EVAL HIGH COMPLEX 60 MINS Gisell Emanuel PA-C [address] [place] [address] [facility] [place] [address] [place] [address] Referral ID Status Reason Start Date Expiration Date Visits Requested Visits Authorized [id number] Authorized PCP Requested Referral Auto-Generate d Referral 3 04/10/2024 99 99 Reason Comments Established Patient Post Op Reason Comments 1 year follow up PSA and BPH Denies dysu campbell, gross hematuria, urinary urgency/frequency, states nocturia x1, states he does feel as if he's fully emptying with urination Reason Comments 1 Year Follow-up FOR RECORDS PERTAINING TO PATIENTS WHO ARE OR HAVE BEEN ENROLLED IN A CHEMICAL DEPENDENCY/SUBSTANCEABUSE PROGRAM, SOME INFORMATION MAY BE OMITTED. This clinical summary was aggregated from multiple sources. Caution should be exercised in using it in the provision of clinical care. This summary normalizes information from multiple sources, and as a consequence, information in this document may materially change the coding, format and clinical context of patient data. In addition, data may be omitted in some cases. CLINICAL DECISIONS SHOULD BE BASED ON THE PRIMARY CLINICAL RECORDS. [facility]. provides no warranty or guarantee of the accuracy or completeness of information in this document.
[2024-10-23 14:09] LABS: PSA, Free 1.25 ng/mL; PSA, Free % 37.3 % (.)
== END | disposition home or self-care (01) ==
LOC: MTLAB 12:44
PROVIDERS: PCP Family Medicine
DX: R97.20 Elevated prostate specific antigen [PSA] (principal)
CPT/HCPCS: 36415; 84153; 84154